=== PATIENT | female | born 2000 | race Two or more races ===

== ENCOUNTER 2024-11-26 20:23 | Inpatient (IN) | payer MEDICAID ==
[~2024-11-26] VITALS: Ht 157.5 cm; Wt 75.1 kg
--- NOTE | 2024-11-26 21:18 | ED.PDOC ---
History of Present Illness HPI Comments 23-year-old female who came to ER due to flu like symptoms. Patient has been having flu like symptoms for the past 5 days, with body malaise, weakness, abdominal pains, lost of appetite, nausea and vomiting. Patient unable to remember her last bowel movement. Denies any possibility of . Denies any history of abdominal surgeries. Chief Complaint: FLU like Time Seen by MD: 21:18 Reviewed Notes: Nurses Notes, Roving Department End Finder Notes Allergies: Coded Allergies: NO KNOWN ALLERGIES (Unverified , 11/26/24) Information Source: Patient Mode of Arrival: EMS Timing: Hours Duration: Intermittent Prehospital treatment: None Past Medical History PAST MEDICAL HISTORY: Denies Surgical History: Denies all surgeries Family History Family History: Reviewed,noncontributory to illness Social History Smoker: Non-Smoker Alcohol: Denies ETOH Use Drugs: Denies Drug Use Lives In: Home Constitutional: reports: fatigue, malaise, weakness; denies: chills, diaphoresis, fever, sweats, others EENTM: denies: blurred vision, double vision, ear bleeding, ear discharge, ear drainage, ear pain, ear ringing, eye pain, eye redness, hearing loss, mouth pain, mouth swelling, nasal discharge, nose bleeding, nose congestion, nose pain, photophobia, tearing, throat pain, throat swelling, voice changes, others Respiratory: denies: cough, hemoptysis, orthopnea, SOB at rest, shortness of breath, SOB with excertion, stridor, wheezing, others Cardiovascular: denies: chest pain, dizzy spells, diaphoresis, Dyspnea on exertion, edema, irregular heart beat, left arm pain, lightheadedness, palpitations, PND, syncope, others Gastrointestinal: reports: abdominal pain, constipated, nausea, poor appetite, vomiting; denies: abdomen distended, blood streaked bowels, diarrhea, dysphagia, difficulty swallowing, hematemesis, melena, poor fluid intake, rectal bleeding, rectal pain, others Genitourinary: denies: abnormal vagina bleeding, burning, dyspareunia, dysuria, flank pain, frequency, hematuria, incontinence, pain, , vagina discharge, urgency, others Neurological: denies: dizziness, fainting, headache, left sided numbness, left sided weakness, numbness, paresthesia, pre-existing deficit, right sided numbness, right sided weakness, seizure, speech problems, tingling, tremors, weakness, others Musculoskeletal: denies: back pain, gout, joint pain, joint swelling, muscle pain, muscle stiffness, neck pain, others Integumetry: denies: bruises, change in color, change in hair/nails, dryness, laceration, lesions, lumps, rash, wounds, others Allergic/Immunocompromised: denies: Difficulty Healing, Frequent Infections, Hives, Itching, others Hematologic/Lymphatic: denies: anemia, blood clots, easy bleeding, easy brui sing, swollen glands, others Endocrine: denies: excessive hunger, excessive sweating, excessive thirst, ex cessive urination, flushing, intolerance to cold, intolerance to heat, unexplained weight gain, unexplained weight loss, others Psychiatric: denies: anxiety, bipolar disorder, depression, hopeless, panic disorder, schizophrenia, sleepless, suicidal, others Physical Exam General Appearance: No Apparent Distress, Normal HEENT: Normal ENT Inspection, Pharynx Normal, TMs Normal Neck: Full Range of Motion, Non-Tender, Normal, Normal Inspection Respiratory: Chest Non-Tender, Lungs Clear, No Accessory Muscle Use, No Res piratory Distress, Normal Breath Sounds Cardiovascular: No Edema, No JVD, No Murmur, No Gallop, Normal Peripheral Pulses, Regular Rate/Rhythm Breast Exam: Deferred Gastrointestinal: Epigastric, No Organomegaly, No Pulsatile Mass, Normal Bowel Sounds, Soft, Tenderness Genitalia: Deferred Pelvic: Deferred Rectal: Deferred Extremities: No calf tenderness, Normal capillary refill, Normal inspection, Normal range of motion, Non-tender, No pedal edema Musculoskeletal : Apperance: Normal Neurologic: Alert, control systems drafting officer II-XII nml as Tested, No Motor Deficits, Normal Affect, Normal Mood, No Sensory Deficits Cerebellar Function: Normal Reflexes: Normal Skin: Dry, Normal Color, Warm Lymphatic: No Adenopathy Was a procedure done? Was a procedure done?: No Differential Dx Considerations may include: Anemia, electrolyte imbalance, influenza, viral syndrome, enteritis X-Ray, Labs, Meds, VS Vital Signs Date Time Temp Pulse Resp B/P (MAP) Pulse Ox O2 Delivery O2 Flow Rate FiO2 11/26/24 23:32 16 98 Room Air* 0 21 11/26/24 21:54 98.5 74 18 135/79 (97) 99 98.5 11/26/24 21:54 74 18 99 Room Air 11/26/24 20:54 98.4 130 28 132/60 (84) 100 Lab Test 11/26/24 22:37 11/26/24 21:38 11/26/24 21:13 11/26/24 20:53 Range/Units Urine Color Yellow Yellow Urine Clarity Turbid H Clear Urine pH 6.0 5.0-9.0 Urine Specific [place] 1.039 H 1.001-1.035 Urine Protein 1+ H Negative Urine Ketones 4+ H Negative Urine Blood 2+ H Negative /uL Urine Nitrite Negative Negative Urine Bilirubin Negative Negative Urine Urobilinogen 3 H Negative mg/dL Urine Leukocyte Esterase 2+ Negative /uL Urine RBC 9 0 - 4 /hpf Urine Microscopic WBC 50 H 0-5 /HPF Urine Squamous Epithelial Cells Mod <5 /hpf Urine Bacteria None seen None Seen /hpf Urine Hyaline Casts Few 0 - 2 /lpf Urine Mucus Few None Seen Urine Glucose Normal Normal mg/dL Urine Test Negative Negative White Blood Count 19.6 H 4.4-10.8 10^3/uL Red Blood Count 5.46 H 4.0-5.20 10^6/uL Hemoglobin 15.8 12.2-16.2 g/dL Hematocrit 45.9 36.0-46.0 % Mean Corpuscular Volume 84.2 80.0-100.0 fL Mean Corpuscular Hemoglobin 29.0 28.0-32.0 pg Mean Corpuscular Hemoglobin Concent 34.5 32.0-36.0 g/dL Red Cell Distribution Width 12.9 11.8-14.3 % Platelet Count 411 140-450 10^3/uL Mean Platelet Volume 8.0 6.9-10.8 fL Neutrophils (%) (Auto) 80.8 H 37.0-80.0 % Lymphocytes (%) (Auto) 12.3 10.0-50.0 % Monocytes (%) (Auto) 6.2 0.0-12.0 % Eosinophils (%) (Auto) 0.4 0.0-7.0 % Basophils (%) (Auto) 0.3 0.0-2.0 % Neutrophils # (Auto) 15.8 H 1.6-8.6 10 ^3/uL Lymphocytes # (Auto) 2.4 0.4-5.4 10 ^3/uL Monocytes # (Auto) 1.2 0-1.3 10 ^3/uL Eosinophils # (Auto) 0.1 0-0.8 10 ^3/uL Basophils # (Auto) 0.1 0-0.2 10 ^3/uL Nucleated Red Blood Cells 0.1 % Sodium Level 131 L 136-145 mmol/L Potassium Level 3.1 L 3.5-5.1 mmol/L Chloride Level 95 L 98-107 mmol/L Carbon Dioxide Level 23 20-31 mmol/L Anion Gap 13 5-15 Blood Urea Nitrogen 12 9-23 mg/dL Creatinine 0.59 0.550-1.02 mg/dL Glomerular Filtration Rate Calc 130 >90 mL/min BUN/Creatinine Ratio 20.3 H 10.0-20.0 Serum Glucose 107 H 74-106 mg/dL Calcium Level 10.2 8.7-10.4 mg/dL Total Bilirubin 0.9 0.2-1.0 mg/dL Aspartate Amino Transferase (AST) 13 13-40 U/L Alanine Aminotransferase (ALT) 20 7-40 U/L Alkaline Phosphatase 70 46-116 U/L Total Protein 8.2 5.7-8.2 g/dL Albumin 5.4 H 3.2-4.8 g/dL Influenza Type A Antigen Negative Negative Influenza Type B Antigen Negative Negative SARS-CoV-2 Antigen (Rapid) Negative NEGATIVE POC Glucose 114 H 70-106 mg/dl Current Medications Medications (Trade) Dose Ordered Sig/Karen Route Start Time Stop Time Status Last Admin Ondansetron HCl (Zofran) 4 mg ONCE ONCE IV 11/26/24 21:30 11/26/24 21:31 DC 11/26/24 21:36 Acetaminophen (Ofirmev) 1,000 mg ONCE ONCE IV 11/26/24 21:30 11/26/24 21:31 DC 11/26/24 21:35 Sodium Chloride 1,000 ml @ 1,000 mls/hr Q1H ONCE IV 11/26/24 21:45 11/26/24 22:44 DC 11/26/24 21:34 Cefepime HCl 50 ml @ 12.5 mls/hr ONCE ONCE IV 11/26/24 23:15 11/27/24 03:14 DC 11/26/24 23:26 Metoclopramide HCl (Reglan Injection) 10 mg ONCE ONCE IV 11/27/24 00:30 11/27/24 00:31 DC 11/27/24 00:25 Potassium Chloride (Klor-Con Tablet) 40 meq ONCE ONCE PO 11/27/24 01:30 11/27/24 01:37 DC 11/27/24 01:47 Sodium Chloride 1,000 ml @ 60 mls/hr [id number] IV 11/27/24 01:30 11/27/24 01:47 Time of 1ST Reevaluation: 21:09 Reevaluation 1ST: Unchanged Patient Education/Counseling: Diagnosis, Treatment Family Education/Counseling: No Family Present Departure 1 Departure Time of Disposition: 05:29 (Patient presented with abdominal pain that was concerning for possible appendicits, gastritis, cholecystitis, colitis, gastroenteritis, sbo, or orther possible surgical emergency. Data: 1. I ordered and reviewed the result of at least 3 labs including a CBC, BMP, and Urinalysis. 2. I independently interpreted the following tests: CT Abdoment and Pelvis is concerning for renal cyst .Risk:This patient has a high risk of morbidity due to further diagnostic testing or treatment and may suffer from an acute abdominal process disorder. Workup reveals acute cystitis and right renal cyst and patient should be admitted for further workup. and possible expert consultation. ) Impression: Primary Impression: Acute cystitis Qualified Codes: N30.01 - Acute cystitis with hematuria Additional Impressions: Adnexal cyst Intractable abdominal pain Disposition: ADMITTED INPATIENT Admit to: Med Surg Condition: Serious Critical Care Note Critical Care Time?: No Stability Stability form required: No Heart Score Heart Score: Heart Score Response (Comments) Value History N/A 0 EKG N/A 0 Age N/A 0 Risk Factors N/A 0 Troponin N/A 0 Total 0 I personally scribed for YESENIA SMITH MD ([email or web address]) on 11/26/24 at 21:18. Electronically submitted by Billy Dye ([email or web address]). YESENIA SMITH MD Nov 26, 2024 21:18
[2024-11-26] MEDS: SODIUM CHLORIDE 0.9% 1,000 ML IV ONE (21:34)
[2024-11-26] MEDS: ACETAMINOPHEN IV 1000 MG/100ML (10MG/ML) IV ONE (21:35)
[2024-11-26] MEDS: ONDANSETRON HCL 4 MG/2 ML VIAL IV ONE (21:36)
[2024-11-26 21:54] LABS: COVID19 ANTIGEN SOFIA FIA NEGATIVE (NEGATIVE); Rapid Influenza A Negative (Negative); Rapid Influenza B Negative (Negative)
[2024-11-26 21:55] LABS: Basophils # (auto) 0.1 10 ^3/uL (0-0.2); Basophils % (auto) 0.3 % (0.0-2.0); Eosinophils # (auto) 0.1 10 ^3/uL (0-0.8); Eosinophils % (auto) 0.4 % (0.0-7.0); Hematocrit 45.9 % (36.0-46.0); Hemoglobin 15.8 g/dL (12.2-16.2); Lymphocytes # (auto) 2.4 10 ^3/uL (0.4-5.4); Lymphocytes % (auto) 12.3 % (10.0-50.0); Mean Corpuscular Hgb Conc. 34.5 g/dL (32.0-36.0); Mean Corpuscular Volume 84.2 fL (80.0-100.0); Monocytes # (auto) 1.2 10 ^3/uL (0-1.3); Monocytes % (auto) 6.2 % (0.0-12.0); Neutrophils # (auto) 15.8 10 ^3/uL (1.6-8.6); Neutrophils % (auto) 80.8 % (37.0-80.0); Nucleated Red Blood Cells % 0.1 %; Platelet Count (auto) 411 10^3/uL (140-450); Red Blood Cells 5.46 10^6/uL (4.0-5.20); Red Cell Distribution Width 12.9 % (11.8-14.3); White Blood Cell 19.6 10^3/uL (4.4-10.8)
[2024-11-26 22:04] LABS: Alanine Aminotransferase 20 U/L (7-40); Alkaline Phosphatase 70 U/L (46-116); Anion Gap 13 (5-15); Aspartate Aminotransferase 13 U/L (13-40); BUN/Creatinine Ratio 20.3 (10.0-20.0); Bilirubin, Total 0.9 mg/dL (0.2-1.0); Blood Urea Nitrogen 12 mg/dL (9-23); Calcium 10.2 mg/dL (8.7-10.4); Carbon Dioxide 23 mmol/L (20-31)
[2024-11-26 22:08] LABS: Albumin 5.4 g/dL (3.2-4.8); Chloride 95 mmol/L (98-107); Glucose 107 mg/dL (74-106); Potassium 3.1 mmol/L (3.5-5.1); Sodium 131 mmol/L (136-145); Total Protein 8.2 g/dL (5.7-8.2)
[2024-11-26 22:37] LABS: Urine Bacteria None Seen /hpf (None Seen)
[2024-11-26 22:46] LABS: Urine Blood 2+ /uL (Negative); Urine Clarity Turbid (Clear); Urine Color Yellow (Yellow); Urine Hyaline Cast FEW /lpf (0 - 2); Urine Mucus FEW (None Seen); Urine Protein, UAD 1+ (Negative); Urine Specific Gravity 1.039 (1.001-1.035); Urine Squamous Epithelial Cell MOD /hpf (<5); Urine Urobilinogen 3 mg/dL (Negative); Urine WBC 50 /HPF (0-5)
[2024-11-26] MEDS: CEFEPIME 2GM/50ML NS 50 ML IV ONE (23:26)
[2024-11-26 23:32] VITALS: RESP 16; O2SAT 98
[2024-11-27] VITALS (7 sets, daily range): BP systolic 124–129; BP diastolic 71–84; PULSE 89–112; RESP 16–19; TEMP 97.4–98.3; O2SAT 96–98
[2024-11-27] MEDS: METOCLOPRAMIDE HCL 5MG/ml INJ 2ml VIAL IV ONE (00:25)
[2024-11-27] MEDS: IOHEXOL 300 MG/ML 100ML BOTTLE IJ ONE (01:20)
[2024-11-27] MEDS ORDERED: ACETAMINOPHEN 325 MG TAB PO PRN (01:30)
[2024-11-27] MEDS ORDERED: DOCUSATE SOD 100 MG CAP PO PRN (01:30)
[2024-11-27] MEDS ORDERED: HYDROcodone-ACET 5/325MG TAB PO PRN (01:30)
--- NOTE | 2024-11-27 01:41 | DVH ---
Exam: CT CT AB PEL WITH IV CON ONLY History: abdominal pain COMPARISON: None Technique: Multidetector spiral CT of the abdomen and pelvis was performed from lung bases to pubic s ymphysis. Intravenous contrast was administered during this examination. Portal venous imaging was obtained. Axial, coronal and sagittal multiplanar reformats were performed by the technologist on a separate workstation. Radiation Dose : 1. Abdomen/Pelvis: CTDIvol mGy, DLP mGy*cm. CONTRAST: Type of contrast: Contrast injected: ml Contrast ingested: ml Findings: Lung Bases: No abnormality demonstrated. Liver: Liver is normal in size. No focal lesions. Normal hepatic vascular enhancement. Gallbladder and Biliary Tree: No abnormality demonstrated. Spleen: No abnormality demonstrated. Pancreas: No abnormality demonstrated. Adrenal Glands: No abnormality demonstrated. Kidneys: No abnormality demonstrated with no evidence of renal calculus or hydroureteronephrosis. Bladder: Unremarkable Bowel: Stomach appears grossly unremarkable. No dilated or thick-walled loops of large or small bowel noted. Appendix appears unremarkable. Ascites: Absent Lymphadenopathy: No evidence of lymphadenopathy. Abdominal Wall and Mesentery: Unremarkable. Vasculature: Unremarkable. Pelvic Organs: Evidence of right adnexal cyst measuring up to 3.7 cm. IUD noted in the uterus. No isabel dence of pelvic mass or free fluid. Musculoskeletal: No bony lesions or fracture. IMPRESSION: No acute abdominal finding. Right adnexal cyst measuring up to 3.7 cm Radiation optimization: All CT scans at this facility use at least one of these dose optimization janis hniques: automated exposure control mA and/or kV adjustment per patient size (includes targeted exam s where dose is matched to clinical indication) or iterative reconstruction.
[2024-11-27] MEDS: SODIUM CHLORIDE 0.9% 1,000 ML IV SCH (01:47)
[2024-11-27] MEDS: POTASSIUM CHL 20 Meq TABLET PO ONE (01:47)
--- NOTE | 2024-11-27 04:25 | DVHHP2 ---
History of Present Illness Reason for Visit: Intractable nausea and vomiting History of Present Illness Patient is a 23-year-old female who denies past medical history presented to [facility] [place] ED with complaint of intractable nausea and vomiting. Patient reports symptoms progressively get worse with abdominal pain, loss of appetite, getting worse that prompted this visit. Patient was seen and evaluated in the ED, laboratory data shows elevated WBC 19.6, platelets 411, sodium 131, potassium 3.1, BUN 12, creatinine 0.59, GFR 130, glucose 107, albumin 5.4, urinalysis positive for urinary tract infection, blood pressure 135/79, heart rate 74, temperature 98.5 F, O2 saturation 98% room air. Abdomen/pelvis CT showed no acute abdominal finding, noted right adnexal cyst measuring up to 3.7 cm. Patient was started on IV antibiotic regimen cefepime, please see medication orders section in the computer. On my assessment, patient denied chest pain, no headache, no dizziness, no abdominal pain, no nausea or vomiting at this moment, no fever, no chills. Patient was admitted for further evaluation and medical management. Past Medical History Denies past medical history Past Surgical History Denies all surgeries Family History Reviewed, noncontributory to the management of this case. Past Social History The patient lives at home, denies smoking, alcohol or illicit drugs abuse. Review of Systems Constitutional: No: Fever, Chills, Sweats, Weakness, Malaise, Other Eyes: No: Pain, Vision change, Conjunctivae inflammation, Eyelid inflammation, Other, Redness ENT: No: Ear pain, Ear discharge, Nose pain, Nose discharge, Nose congestion, Mouth pain, Mouth swelling, Throat pain, Throat swelling, Other Respiratory: No: Cough, Dry, Shortness of breath, SOB with excertion, Wheezing, Hemoptysis, Pleuritic Pain, Sputum, Wheezing, Other Cardiovascular: No: Chest Pain, Palpitations, Orthopnea, Paroxysmal Noc. Dyspnea, Edema, Lt Headedness, Other Gastrointestinal: Nausea, Vomiting, Abdominal Pain, Constipation, Other (Poor appetite); No: Diarrhea, Melena, Hematochezia Genitourinary: No Dysuria, No Frequency, No Incontinence, No Hematuria, No Retention, No Other Musculoskeletal: No: other, neck pain, shoulder pain, arm pain, back pain, hand pain, leg pain, foot pain Skin: No: Rash, Lesions, Jaundice, Bruising, Other Neurological: No: Weakness, Numbness, Incoordination, Change in speech, Confusion, Seizures, Other Allergies: Coded Allergies: NO KNOWN ALLERGIES (Unverified , 11/26/24) Medications Current Medications Medications Dose Ordered Sig/Karen Route Start Time Stop Time Status Last Admin Dose Admin Cefepime HCl 50 ml @ 12.5 mls/hr Q12HR IV 11/27/24 10:00 Sodium Chloride 1,000 ml @ 60 mls/hr [id number] IV 11/27/24 01:30 11/27/24 01:47 60 MLS/HR Acetaminophen/ Hydrocodone Bitart 1 tab Q4HP PRN PO 11/27/24 01:30 Ondansetron HCl 4 mg Q4HP PRN IV 11/27/24 01:30 Docusate Sodium 100 mg BIDPRN PRN PO 11/27/24 01:30 Acetaminophen 650 mg Q6HP PRN PO 11/27/24 01:30 Pantoprazole Sodium 40 mg DAILY IV 11/27/24 10:00 Exam Vital Signs Vital Signs Date Time Temp Pulse Resp B/P (MAP) Pulse Ox O2 Delivery O2 Flow Rate FiO2 11/26/24 23:32 16 98 Room Air* 0 21 11/26/24 21:54 98.5 74 135/79 (97) 98.5 General Appearance: Alert, Oriented X3, Cooperative, No acute distress HEENT: Atraumatic, PERRLA, EOMI, Mucous membr. moist/pink Respiratory: Clear to auscultation, Normal air movement Cardiovascular: Regular rate, Normal S1, Normal S2, No murmurs Abdominal: Normal bowel sounds, Soft, No tenderness, No hepatospenomegaly, No masses Extremities: No clubbing, No cyanosis, No edema, Normal pulses, No tenderness/ swelling Skin: No rashes, No breakdown, No significant lesion Neuro: Normal gait, Normal speech, Strength at 5/5 X4 ext, Normal tone, Sensation intact, Cranial nerves 3-12 NL, Reflexes 2+ Psych/Mental Status: Mental status NL, Mood NL Labs/Xrays Labs Test 11/26/24 22:37 11/26/24 21:38 11/26/24 21:13 11/26/24 20:53 Range/Units Urine Color Yellow Yellow Urine Clarity Turbid H Clear Urine pH 6.0 5.0-9.0 Urine Specific [place] 1.039 H 1.001-1.035 Urine Protein 1+ H Negative Urine Ketones 4+ H Negative Urine Blood 2+ H Negative /uL Urine Nitrite Negative Negative Urine Bilirubin Negative Negative Urine Urobilinogen 3 H Negative mg/dL Urine Leukocyte Esterase 2+ Negative /uL Urine RBC 9 0 - 4 /hpf Urine Microscopic WBC 50 H 0-5 /HPF Urine Squamous Epithelial Cells Mod <5 /hpf Urine Bacteria None seen None Seen /hpf Urine Hyaline Casts Few 0 - 2 /lpf Urine Mucus Few None Seen Urine Glucose Normal Normal mg/dL Urine Test Negative Negative White Blood Count 19.6 H 4.4-10.8 10^3/uL Red Blood Count 5.46 H 4.0-5.20 10^6/uL Hemoglobin 15.8 12.2-16.2 g/dL Hematocrit 45.9 36.0-46.0 % Mean Corpuscular Volume 84.2 80.0-100.0 fL Mean Corpuscular Hemoglobin 29.0 28.0-32.0 pg Mean Corpuscular Hemoglobin Concent 34.5 32.0-36.0 g/dL Red Cell Distribution Width 12.9 11.8-14.3 % Platelet Count 411 140-450 10^3/uL Mean Platelet Volume 8.0 6.9-10.8 fL Neutrophils (%) (Auto) 80.8 H 37.0-80.0 % Lymphocytes (%) (Auto) 12.3 10.0-50.0 % Monocytes (%) (Auto) 6.2 0.0-12.0 % Eosinophils (%) (Auto) 0.4 0.0-7.0 % Basophils (%) (Auto) 0.3 0.0-2.0 % Neutrophils # (Auto) 15.8 H 1.6-8.6 10 ^3/uL Lymphocytes # (Auto) 2.4 0.4-5.4 10 ^3/uL Monocytes # (Auto) 1.2 0-1.3 10 ^3/uL Eosinophils # (Auto) 0.1 0-0.8 10 ^3/uL Basophils # (Auto) 0.1 0-0.2 10 ^3/uL Nucleated Red Blood Cells 0.1 % Sodium Level 131 L 136-145 mmol/L Potassium Level 3.1 L 3.5-5.1 mmol/L Chloride Level 95 L 98-107 mmol/L Carbon Dioxide Level 23 20-31 mmol/L Anion Gap 13 5-15 Blood Urea Nitrogen 12 9-23 mg/dL Creatinine 0.59 0.550-1.02 mg/dL Glomerular Filtration Rate Calc 130 >90 mL/min BUN/Creatinine Ratio 20.3 H 10.0-20.0 Serum Glucose 107 H 74-106 mg/dL Calcium Level 10.2 8.7-10.4 mg/dL Total Bilirubin 0.9 0.2-1.0 mg/dL Aspartate Amino Transferase (AST) 13 13-40 U/L Alanine Aminotransferase (ALT) 20 7-40 U/L Alkaline Phosphatase 70 46-116 U/L Total Protein 8.2 5.7-8.2 g/dL Albumin 5.4 H 3.2-4.8 g/dL Influenza Type A Antigen Negative Negative Influenza Type B Antigen Negative Negative SARS-CoV-2 Antigen (Rapid) Negative NEGATIVE POC Glucose 114 H 70-106 mg/dl PATIENT: ALEX MEREDITH ACCT: [id number] UNIT: [id number] : 2000 LOC: ER ROOM / BED: / AGE / SEX: 24 / F ADM STATUS: REG ER SERVICE 010 ORDERING PHYSICIAN: YESENIA SMITH MD PROCEDURE(s): ABPLIV - CT AB PEL WITH IV CON ONLY REASON: abdominal pain ORDER NUMBER(s): [id number], ACCESSION NUMBER(s): [id number] Exam: CT CT AB PEL WITH IV CON ONLY History: abdominal pain COMPARISON: None Technique: Multidetector spiral CT of the abdomen and pelvis was performed from lung bases to pubic symphysis. Intravenous contrast was administered during this examination. Portal venous imaging was obtained. Axial, coronal and sagittal multiplanar reformats were performed by the technologist on a separate workstation. Radiation Dose: 1. Abdomen/Pelvis: CTDIvol mGy, DLP mGy*cm. CONTRAST: Type of contrast: Contrast injected: ml Contrast ingested: ml Findings: Lung Bases: No abnormality demonstrated. Liver: Liver is normal in size. No focal lesions. Normal hepatic vascular enhancement. Gallbladder and Biliary Tree: No abnormality demonstrated. Spleen: No abnormality demonstrated. Pancreas: No abnormality demonstrated. Adrenal Glands: No abnormality demonstrated. Kidneys: No abnormality demonstrated with no evidence of renal calculus or hydroureteronephrosis. Bladder: Unremarkable Bowel: Stomach appears grossly unremarkable. No dilated or thick-walled loops of large or small bowel noted. Appendix appears unremarkable. Ascites: Absent Lymphadenopathy: No evidence of lymphadenopathy. Abdominal Wall and Mesentery: Unremarkable. Vasculature: Unremarkable. Pelvic Organs: Evidence of right adnexal cyst measuring up to 3.7 cm. IUD noted in the uterus. No evidence of pelvic mass or free fluid. Musculoskeletal: No bony lesions or fracture. IMPRESSION: No acute abdominal finding. Right adnexal cyst measuring up to 3.7 cm Assessment/Plan Assessment/Plan Abdominal pain Intractable nausea and vomiting Electrolyte imbalance Urinary tract infection Leukocytosis, unspecified Plan 1. Admit to med surge unit 2. Breathing treatment 3. Pain control management 4. IV antibiotic management 5. Management of fluids and electrolytes 6. Consultation for hospitalist 7. Diagnostic test abdomen/pelvis CT 8. DVT prophylaxis-on SCDs 9. Repeat labs CBC, CMP in a.m. 10. Continue with current medical management 11. Treatment plan discussed with patient and RN. Patient verbalized understanding. Plan discussed with: Patient, Other (RN) My Orders Orders - ATLAGRACIA JOHNSON DNP Procedure Category Date Status Time Complete Blood Count LAB 11/27/24 Logged 04:00 Comprehensive LAB 11/27/24 Logged Metabolic Panel 04:00 Cefepime 1gm/ 50ml PHA 11/27/24 In Process (Maxipime 1gm/50ml) 10:00 Urine Bacterial ADAL 11/27/24 In Process Culture 01:25 Blood Culture ADAL 11/27/24 In Process 01:25 Allergies NIC 11/27/24 In Process 01:25 Code Status CODE 11/27/24 Transmitted 01:25 Sodium Chloride 0.9% PHA 11/27/24 In Process 01:30 Oxygen Per Hour RT 11/27/24 Transmitted 01:25 Hydrocodone-Acet PHA 11/27/24 In Process 5/325mg Tab ([place] 01:30 Ondansetron Hcl PHA 11/27/24 In Process (Zofran) 01:30 Docusate Sodium PHA 11/27/24 In Process Capsule (Colace 01:30 Complete Blood Count LAB 11/28/24 Verified 04:00 Comprehensive LAB 11/28/24 Verified Metabolic Panel 04:00 Condition: Serious NIC 11/27/24 In Process 01:25 Acetaminophen Tablet PHA 11/27/24 In Process (Tylenol Tablet) 01:30 Clear Liq Diet DIET 11/27/24 Transmitted Breakfast Bedrest With Bathroom NIC 11/27/24 In Process Privileg 01:25 Sequential NIC 11/27/24 In Process Compression Device Pantoprazole PHA 11/27/24 In Process (Protonix) 10:00 Admit ADMIT 11/27/24 Verified 04:23 Nitroglycerin [facility] 11/27/24 Verified Sublingual (Ntrostat 04:30 Morphine Sulfate [facility] 11/27/24 Verified Injection 04:30 Notify Md Of Changes [facility] 11/27/24 Verified From Base 04:23 Emergency Dysrhythmia [facility] 11/27/24 Verified Protocol 04:23 Oxygen By Nasal RT 11/27/24 Verified Cannula 04:23 Problem List: (1) Abdominal pain (2) Intractable nausea and vomiting (3) Electrolyte imbalance (4) Urinary tract infection (5) Leukocytosis, unspecified Date of Service: Nov 27, 2024 Billing Provider: ALTAGRACIA JOHNSON DNP Common Visit Codes: [id number] INP/OBS CARE (HIGH) ALTAGRACIA JOHNSON DNP Nov 27, 2024 04:25
[2024-11-27] MEDS ORDERED: MORPHINE SULFATE INJ 2 MG/ml SYRG IV PRN (04:30)
[2024-11-27] MEDS ORDERED: NITROGLYCERIN 0.4 MG SL TAB SL PRN (04:30)
[2024-11-27] MEDS: ONDANSETRON HCL 4 MG/2 ML VIAL IV PRN (05:49)
[2024-11-27 09:39] LABS: Basophils # (auto) 0 10 ^3/uL (0-0.2); Basophils % (auto) 0.3 % (0.0-2.0); Eosinophils # (auto) 0 10 ^3/uL (0-0.8); Eosinophils % (auto) 0.3 % (0.0-7.0); Hematocrit 40.8 % (36.0-46.0); Hemoglobin 13.9 g/dL (12.2-16.2); Lymphocytes # (auto) 2.8 10 ^3/uL (0.4-5.4); Lymphocytes % (auto) 19.6 % (10.0-50.0); Mean Corpuscular Hemoglobin 28.9 pg (28.0-32.0); Monocytes # (auto) 1.2 10 ^3/uL (0-1.3); Monocytes % (auto) 8.5 % (0.0-12.0); Neutrophils % (auto) 71.3 % (37.0-80.0); Nucleated Red Blood Cells % 0.1 %; Platelet Count (auto) 362 10^3/uL (140-450); Red Blood Cells 4.79 10^6/uL (4.0-5.20); Red Cell Distribution Width 12.8 % (11.8-14.3); White Blood Cell 14.1 10^3/uL (4.4-10.8)
[2024-11-27 09:55] LABS: Alanine Aminotransferase 17 U/L (7-40); Alkaline Phosphatase 60 U/L (46-116)
[2024-11-27 09:56] LABS: Albumin 4.6 g/dL (3.2-4.8); Anion Gap 10 (5-15); BUN/Creatinine Ratio 11.3 (10.0-20.0); Bilirubin, Total 0.8 mg/dL (0.2-1.0); Calcium 9.4 mg/dL (8.7-10.4); Carbon Dioxide 23 mmol/L (20-31); Chloride 100 mmol/L (98-107); Glucose 98 mg/dL (74-106); Potassium 3.6 mmol/L (3.5-5.1)
[2024-11-27 09:59] LABS: Aspartate Aminotransferase 10 U/L (13-40); Blood Urea Nitrogen 7 mg/dL (9-23); Sodium 133 mmol/L (136-145)
[2024-11-27] MEDS: CEFEPIME 1GM/ 50ML 50 ML IV SCH (10:18)
[2024-11-27] MEDS: PANTOPRAZOLE 40 MG/10 ML VIAL INJ IV SCH (10:18)
--- NOTE | 2024-11-27 13:38 | DVHPN2 ---
Reviewed: Care Plan, H&P, Labs, Medications, Previous Orders, Radiology Changes from previous H/P or p: No Changes Eyes: No Pain, No Vision change, No Conjunctivae inflammation, No Eyelid inflammation, No Other, No Redness ENT: No Ear pain, No Ear discharge, No Nose pain, No Nose discharge, No Nose congestion, No Mouth pain, No Mouth swelling, No Throat pain, No Throat swelling, No Other Cardiovascular: No Chest Pain, No Palpitations, No Orthopnea, No Paroxysmal Noc. Dyspnea, No Edema, No Lt Headedness, No Other Respiratory: No Cough, No Dry, No Shortness of breath, No SOB with excertion, No Wheezing, No Hemoptysis, No Pleuritic Pain, No Sputum, No Other Gastrointestinal: Nausea, Vomiting, Abdominal Pain; No Diarrhea; Constipation; No Melena, No Hematochezia; Other (Poor appetite) Genitourinary: No Dysuria, No Frequency, No Incontinence, No Hematuria, No Retention, No Other Musculoskeletal: No other, No neck pain, No shoulder pain, No arm pain, No back pain, No hand pain, No leg pain, No foot pain Skin: No Rash, No Lesions, No Jaundice, No Bruising, No Other Objective Vitals Vital Signs Date Time Temp Pulse Resp B/P (MAP) Pulse Ox O2 Delivery O2 Flow Rate FiO2 11/27/24 09:00 97.4 112 19 129/83 (98) 96 97.4 11/27/24 08:00 Room Air* 0 21 Intake/Output Intake and Output 11/27/24 07:00 Intake Total 1243 ml Balance 1243 ml Intake IV Total 1243 ml Medications Current Medications Medications Dose Ordered Sig/Karen Route Start Time Stop Time Status Last Admin Dose Admin Cefepime HCl 50 ml @ 12.5 mls/hr Q12HR IV 11/27/24 10:00 11/27/24 10:18 12.5 MLS/HR Sodium Chloride 1,000 ml @ 60 mls/hr [id number] IV 11/27/24 01:30 11/27/24 01:47 60 MLS/HR Acetaminophen/ Hydrocodone Bitart 1 tab Q4HP PRN PO 11/27/24 01:30 Ondansetron HCl 4 mg Q4HP PRN IV 11/27/24 01:30 11/27/24 10:18 4 MG Docusate Sodium 100 mg BIDPRN PRN PO 11/27/24 01:30 Acetaminophen 650 mg Q6HP PRN PO 11/27/24 01:30 Pantoprazole Sodium 40 mg DAILY IV 11/27/24 10:00 11/27/24 10:18 40 MG Nitroglycerin 0.4 mg Q5MINP PRN SL 11/27/24 04:30 Morphine Sulfate 2 mg Q30M PRN IV 11/27/24 04:30 Laboratory Results Laboratory Tests 11/27/24 09:18 Chemistry Test 11/26/24 21:38 11/27/24 09:18 Albumin 5.4 g/dL (3.2-4.8) H 4.6 g/dL (3.2-4.8) Calcium Level 10.2 mg/dL (8.7-10.4) 9.4 mg/dL (8.7-10.4) Total Protein 8.2 g/dL (5.7-8.2) 7.0 g/dL (5.7-8.2) LFT Test 11/26/24 21:38 11/27/24 09:18 Alanine Aminotransferase (ALT) 20 U/L (7-40) 17 U/L (7-40) Alkaline Phosphatase 70 U/L (46-116) 60 U/L (46-116) Aspartate Amino Transferase (AST) 13 U/L (13-40) 10 U/L (13-40) L Total Bilirubin 0.9 mg/dL (0.2-1.0) 0.8 mg/dL (0.2-1.0) Urinalysis Test 11/26/24 22:37 Urine Color Yellow (Yellow) Urine Clarity Turbid (Clear) H Urine pH 6.0 (5.0-9.0) Urine Specific [place] 1.039 (1.001-1.035) Urine Protein 1+ (Negative) H Urine Ketones 4+ (Negative) H Urine Blood 2+ /uL (Negative) H Urine Nitrite Negative (Negative) Urine Bilirubin Negative (Negative) Urine Urobilinogen 3 mg/dL (Negative) H Urine Leukocyte Esterase 2+ /uL (Negative) Urine RBC 9 /hpf (0 - 4) Urine Microscopic WBC 50 /HPF (0-5) H Urine Squamous Epithelial Cells Mod /hpf (<5) Urine Bacteria None seen /hpf (None Seen) Urine Hyaline Casts Few /lpf (0 - 2) Urine Mucus Few (None Seen) Urine Glucose Normal mg/dL (Normal) Urine Test Negative (Negative) Labs and/or images reviewed: Labs reviewed by me, Image(s) reviewed by me Assessment/Plan Assessment/Plan Sepsis secondary to urinary tract infection Acute urinary tract infection: Blood cultures urine cultures Rocephin, DC cefepime Intractable nausea and vomiting secondary to sepsis, we will check urine drug screen, pantoprazole Acute dehydration: IV fluids ruled out 3.7 cm right ovarian cyst: Consult for CT abdomen pelvis without contrast negative for any acute pathology Plan discussed with: Patient My Orders Orders - NASIMA HAYNES MD Procedure Category Date Status Time Drug Screen LAB 11/27/24 Verified 13:35 Date of Service: Nov 27, 2024 Billing Provider: NASIMA HAYNES MD Common Visit Codes: [id number] INP/OBS CARE(HIGH) NASIMA HAYNES MD Nov 27, 2024 13:38
[2024-11-27] MEDS: cefTRIAXone 1GM/50ML D5W 50 ML IV ONE (14:11)
[2024-11-27] MEDS: LACTATED RINGER'S 1,000 ML IV SCH (14:13)
[2024-11-27 17:09] LABS: Amphetamine Screen, Urine Neg (NEGATIVE); Barbiturate Scree,Urine Neg (NEGATIVE); Benzodiazephine Screen, Urine Neg (NEGATIVE); Cannabinoid Screen, Urine Pos (NEGATIVE); Cocaine Screen, Urine Neg (NEGATIVE); Opiate Scree,Urine Neg (NEGATIVE); Phencyclidine Screen, Urine Neg (NEGATIVE)
[2024-11-28] VITALS (8 sets, daily range): BP systolic 105–122; BP diastolic 60–77; PULSE 70–98; RESP 16–17; TEMP 97.5–98.3; O2SAT 92–99
[2024-11-28 06:26] LABS: Basophils # (auto) 0 10 ^3/uL (0-0.2); Basophils % (auto) 0.3 % (0.0-2.0); Eosinophils # (auto) 0 10 ^3/uL (0-0.8); Eosinophils % (auto) 0.4 % (0.0-7.0); Hematocrit 39.7 % (36.0-46.0); Hemoglobin 13.7 g/dL (12.2-16.2); Lymphocytes # (auto) 3.5 10 ^3/uL (0.4-5.4); Lymphocytes % (auto) 36.4 % (10.0-50.0); Mean Corpuscular Hemoglobin 29.5 pg (28.0-32.0); Mean Corpuscular Hgb Conc. 34.5 g/dL (32.0-36.0); Mean Corpuscular Volume 85.6 fL (80.0-100.0); Monocytes # (auto) 0.9 10 ^3/uL (0-1.3); Monocytes % (auto) 9.5 % (0.0-12.0); Neutrophils # (auto) 5.1 10 ^3/uL (1.6-8.6); Neutrophils % (auto) 53.4 % (37.0-80.0); Platelet Count (auto) 321 10^3/uL (140-450); Red Blood Cells 4.64 10^6/uL (4.0-5.20); White Blood Cell 9.5 10^3/uL (4.4-10.8)
[2024-11-28 06:43] LABS: Alanine Aminotransferase 13 U/L (7-40); Alkaline Phosphatase 56 U/L (46-116); Anion Gap 10 (5-15); BUN/Creatinine Ratio 12.5 (10.0-20.0); Calcium 9.4 mg/dL (8.7-10.4); Carbon Dioxide 26 mmol/L (20-31); Chloride 101 mmol/L (98-107); Glucose 87 mg/dL (74-106); Sodium 137 mmol/L (136-145)
[2024-11-28 06:44] LABS: Albumin 4.3 g/dL (3.2-4.8); Total Protein 6.5 g/dL (5.7-8.2)
[2024-11-28 06:51] LABS: Aspartate Aminotransferase < 8 U/L (13-40); Bilirubin, Total 0.8 mg/dL (0.2-1.0); Blood Urea Nitrogen 7 mg/dL (9-23); Potassium 3.3 mmol/L (3.5-5.1)
[2024-11-28] MEDS: cefTRIAXone 1GM/50ML D5W 50 ML IV SCH (09:38)
--- NOTE | 2024-11-28 11:43 | DVHPN2 ---
Reviewed: Care Plan, H&P, Labs, Medications, Previous Orders, Radiology Changes from previous H/P or p: No Changes Eyes: No Pain, No Vision change, No Conjunctivae inflammation, No Eyelid inflammation, No Other, No Redness ENT: No Ear pain, No Ear discharge, No Nose pain, No Nose discharge, No Nose congestion, No Mouth pain, No Mouth swelling, No Throat pain, No Throat swelling, No Other Cardiovascular: No Chest Pain, No Palpitations, No Orthopnea, No Paroxysmal Noc. Dyspnea, No Edema, No Lt Headedness, No Other Respiratory: No Cough, No Dry, No Shortness of breath, No SOB with excertion, No Wheezing, No Hemoptysis, No Pleuritic Pain, No Sputum, No Other Gastrointestinal: Nausea, Vomiting, Abdominal Pain; No Diarrhea; Constipation; No Melena, No Hematochezia; Other (Poor appetite) Genitourinary: No Dysuria, No Frequency, No Incontinence, No Hematuria, No Retention, No Other Musculoskeletal: No other, No neck pain, No shoulder pain, No arm pain, No back pain, No hand pain, No leg pain, No foot pain Skin: No Rash, No Lesions, No Jaundice, No Bruising, No Other Objective Vitals Vital Signs Date Time Temp Pulse Resp B/P (MAP) Pulse Ox O2 Delivery O2 Flow Rate FiO2 11/28/24 09:00 97.9 76 16 119/70 (86) 96 97.9 11/27/24 20:00 Room Air* 0 21 Intake/Output Intake and Output 11/28/24 07:00 Intake Total 3807 ml Balance 3807 ml Intake Oral 810 ml IV Total 2997 ml # Voids 3 # Bowel Movements 1 Medications Current Medications Medications Dose Ordered Sig/Karen Route Start Time Stop Time Status Last Admin Dose Admin Acetaminophen/ Hydrocodone Bitart 1 tab Q4HP PRN PO 11/27/24 01:30 Ondansetron HCl 4 mg Q4HP PRN IV 11/27/24 01:30 11/27/24 16:12 4 MG Docusate Sodium 100 mg BIDPRN PRN PO 11/27/24 01:30 Acetaminophen 650 mg Q6HP PRN PO 11/27/24 01:30 Pantoprazole Sodium 40 mg DAILY IV 11/27/24 10:00 11/28/24 09:38 40 MG Nitroglycerin 0.4 mg Q5MINP PRN SL 11/27/24 04:30 Morphine Sulfate 2 mg Q30M PRN IV 11/27/24 04:30 Ceftriaxone Sodium 50 ml @ 100 mls/hr DAILY@09 IV 11/28/24 09:00 11/28/24 09:38 100 MLS/HR Lactated Ringer's 1,000 ml @ 150 mls/hr Q6H40M IV 11/27/24 14:00 11/28/24 05:26 150 MLS/HR Laboratory Results Laboratory Tests 11/28/24 05:00 Chemistry Test 11/28/24 05:00 Albumin 4.3 g/dL (3.2-4.8) Calcium Level 9.4 mg/dL (8.7-10.4) Total Protein 6.5 g/dL (5.7-8.2) LFT Test 11/28/24 05:00 Alanine Aminotransferase (ALT) 13 U/L (7-40) Alkaline Phosphatase 56 U/L (46-116) Aspartate Amino Transferase (AST) < 8 U/L (13-40) L Total Bilirubin 0.8 mg/dL (0.2-1.0) Urinalysis Test 11/26/24 22:37 Urine Color Yellow (Yellow) Urine Clarity Turbid (Clear) H Urine pH 6.0 (5.0-9.0) Urine Specific [place] 1.039 (1.001-1.035) Urine Protein 1+ (Negative) H Urine Ketones 4+ (Negative) H Urine Blood 2+ /uL (Negative) H Urine Nitrite Negative (Negative) Urine Bilirubin Negative (Negative) Urine Urobilinogen 3 mg/dL (Negative) H Urine Leukocyte Esterase 2+ /uL (Negative) Urine RBC 9 /hpf (0 - 4) Urine Microscopic WBC 50 /HPF (0-5) H Urine Squamous Epithelial Cells Mod /hpf (<5) Urine Bacteria None seen /hpf (None Seen) Urine Hyaline Casts Few /lpf (0 - 2) Urine Mucus Few (None Seen) Urine Glucose Normal mg/dL (Normal) Urine Test Negative (Negative) Microbiology Microbiology Date/Time Source Procedure Growth Status 11/27/24 02:30 Blood Blood Culture - Preliminary NO GROWTH AFTER 24 HOURS OF INCUBATION. Resulted 11/26/24 22:37 Voided Urine Urine Culture - Preliminary Resulted Labs and/or images reviewed: Labs reviewed by me, Image(s) reviewed by me Assessment/Plan Assessment/Plan Sepsis secondary to urinary tract infection Acute urinary tract infection: Blood cultures negative, urine cultures negative, continue Rocephin, Intractable nausea and vomiting secondary to sepsis, we will check urine drug screen, pantoprazole Acute dehydration: IV fluids ruled out 3.7 cm right ovarian cyst: Consult for CT abdomen pelvis without contrast negative for any acute pathology Plan discussed with: Patient My Orders Orders - NASIMA HAYNES MD Procedure Category Date Status Time Ceftriaxone 1gm/50ml PHA 11/28/24 In Process D5w (Rocephin) 09:00 Lactated Ringer's PHA 11/27/24 In Process 14:00 Date of Service: Nov 28, 2024 Billing Provider: NASIMA HAYNES MD Common Visit Codes: [id number] INP/OBS CARE(HIGH) NASIMA HAYNES MD Nov 28, 2024 11:43
[2024-11-29 01:00] VITALS: BP 98/56; PULSE 78; RESP 17; TEMP 98.1; O2SAT 98
[2024-11-29 05:00] VITALS: BP 104/65; PULSE 87; RESP 18; TEMP 98.3; O2SAT 97
[2024-11-29 08:10] VITALS: O2SAT 96
[2024-11-29 09:00] VITALS: BP 117/72; PULSE 80; RESP 17; TEMP 97.5; O2SAT 98
--- NOTE | 2024-11-29 10:44 | DVH ---
INDICATION: Ovarian cyst 3.7cm RIGHT r/o torsion TECHNIQUE: Multiple real-time grayscale transabdominal sonographic images along with color and duplex Doppler of the uterus and ovaries were obtained. COMPARISON: None FINDINGS: The uterus measures 6.9 x 5.4 x 3.1 cm. The endometrial stripe measures 0.3 cm. Intrauterin e device is visualized in the endometrial cavity. The right ovary measures 3.4 x 2.0 x 2.6 cm. The left ovary measures 3.3 x 2.1 x 2.5 cm. Subsequent color and duplex Doppler interrogation of the ovaries demonstrated symmetric vascular flow to both ovaries, though this does not exclude the possibility of torsion due to the dual blood suppl y. IMPRESSION: 1. Grossly unremarkable pelvic ultrasound. Intrauterine device is visualized in the endometrial cavit y.
[2024-11-29] MEDS ORDERED: DOXY100C79 PO (12:23)
--- NOTE | 2024-11-29 12:25 | DVHPN2 ---
Reviewed: Care Plan, H&P, Labs, Medications, Previous Orders, Radiology Changes from previous H/P or p: No Changes Eyes: No Pain, No Vision change, No Conjunctivae inflammation, No Eyelid inflammation, No Other, No Redness ENT: No Ear pain, No Ear discharge, No Nose pain, No Nose discharge, No Nose congestion, No Mouth pain, No Mouth swelling, No Throat pain, No Throat swelling, No Other Cardiovascular: No Chest Pain, No Palpitations, No Orthopnea, No Paroxysmal Noc. Dyspnea, No Edema, No Lt Headedness, No Other Respiratory: No Cough, No Dry, No Shortness of breath, No SOB with excertion, No Wheezing, No Hemoptysis, No Pleuritic Pain, No Sputum, No Other Gastrointestinal: Nausea, Vomiting, Abdominal Pain; No Diarrhea; Constipation; No Melena, No Hematochezia; Other (Poor appetite) Genitourinary: No Dysuria, No Frequency, No Incontinence, No Hematuria, No Retention, No Other Musculoskeletal: No other, No neck pain, No shoulder pain, No arm pain, No back pain, No hand pain, No leg pain, No foot pain Skin: No Rash, No Lesions, No Jaundice, No Bruising, No Other Objective Vitals Vital Signs Date Time Temp Pulse Resp B/P (MAP) Pulse Ox O2 Delivery O2 Flow Rate FiO2 11/29/24 09:00 97.5 80 17 117/72 (87) 98 97.5 11/29/24 08:10 Room Air* 0 21 Intake/Output Intake and Output 11/29/24 07:00 Intake Total 2600 ml Balance 2600 ml Intake Oral 1750 ml IV Total 850 ml # Voids 8 # Bowel Movements 2 Medications Current Medications Medications Dose Ordered Sig/Karen Route Start Time Stop Time Status Last Admin Dose Admin Acetaminophen/ Hydrocodone Bitart 1 tab Q4HP PRN PO 11/27/24 01:30 Ondansetron HCl 4 mg Q4HP PRN IV 11/27/24 01:30 11/27/24 16:12 4 MG Docusate Sodium 100 mg BIDPRN PRN PO 11/27/24 01:30 Acetaminophen 650 mg Q6HP PRN PO 11/27/24 01:30 Pantoprazole Sodium 40 mg DAILY IV 11/27/24 10:00 11/29/24 09:34 40 MG Nitroglycerin 0.4 mg Q5MINP PRN SL 11/27/24 04:30 Morphine Sulfate 2 mg Q30M PRN IV 11/27/24 04:30 Ceftriaxone Sodium 50 ml @ 100 mls/hr DAILY@09 IV 11/28/24 09:00 11/29/24 09:34 100 MLS/HR Lactated Ringer's 1,000 ml @ 150 mls/hr Q6H40M IV 11/27/24 14:00 11/29/24 05:28 150 MLS/HR Laboratory Results Laboratory Tests 11/28/24 05:00 Urinalysis Test 11/26/24 22:37 Urine Color Yellow (Yellow) Urine Clarity Turbid (Clear) H Urine pH 6.0 (5.0-9.0) Urine Specific [place] 1.039 (1.001-1.035) Urine Protein 1+ (Negative) H Urine Ketones 4+ (Negative) H Urine Blood 2+ /uL (Negative) H Urine Nitrite Negative (Negative) Urine Bilirubin Negative (Negative) Urine Urobilinogen 3 mg/dL (Negative) H Urine Leukocyte Esterase 2+ /uL (Negative) Urine RBC 9 /hpf (0 - 4) Urine Microscopic WBC 50 /HPF (0-5) H Urine Squamous Epithelial Cells Mod /hpf (<5) Urine Bacteria None seen /hpf (None Seen) Urine Hyaline Casts Few /lpf (0 - 2) Urine Mucus Few (None Seen) Urine Glucose Normal mg/dL (Normal) Urine Test Negative (Negative) Microbiology Microbiology Date/Time Source Procedure Growth Status 11/27/24 02:30 Blood Blood Culture - Preliminary NO GROWTH AFTER 48 HOURS OF INCUBATION. Resulted 11/26/24 22:37 Voided Urine Urine Culture - Final Complete Labs and/or images reviewed: Labs reviewed by me, Image(s) reviewed by me Assessment/Plan Assessment/Plan Sepsis secondary to urinary tract infection Acute urinary tract infection: Blood cultures negative, urine cultures negative, treated with Rocephin, we will go home on Levaquin Intractable nausea and vomiting secondary to sepsis, we will check urine drug screen, pantoprazole Acute dehydration: IV fluids ruled out 3.7 cm right ovarian cyst: Consult for advised outpatient follow up with the [facility] Pelvic ultrasound negative CT abdomen pelvis without contrast negative for any acute pathology Plan discussed with: Patient Date of Service: Nov 29, 2024 Billing Provider: NASIMA HAYNES MD Common Visit Codes: [id number] INP/OBS CARE(HIGH) NASIMA HAYNES MD Nov 29, 2024 12:25
[2024-11-29] MEDS ORDERED: LEVO500T91 PO (12:26)
--- NOTE | 2024-11-29 12:32 | DVHDS2 ---
Discharge Summary Date of Admission Nov 27, 2024 at 04:23 Date of Discharge: Nov 29, 2024 Admitting Diagnosis Abdominal pain Wounds: None Labs/Diagnostic Data: Laboratory Results Test 11/29/24 12:00 11/28/24 05:00 11/27/24 16:44 11/26/24 22:37 White Blood Count 9.5 10^3/uL (4.4-10.8) Red Blood Count 4.64 10^6/uL (4.0-5.20) Hemoglobin 13.7 g/dL (12.2-16.2) Hematocrit 39.7 % (36.0-46.0) Mean Corpuscular Volume 85.6 fL (80.0-100.0) Mean Corpuscular Hemoglobin 29.5 pg (28.0-32.0) Mean Corpuscular Hemoglobin Concent 34.5 g/dL (32.0-36.0) Red Cell Distribution Width 13.0 % (11.8-14.3) Platelet Count 321 10^3/uL (140-450) Mean Platelet Volume 8.1 fL (6.9-10.8) Neutrophils (%) (Auto) 53.4 % (37.0-80.0) Lymphocytes (%) (Auto) 36.4 % (10.0-50.0) Monocytes (%) (Auto) 9.5 % (0.0-12.0) Eosinophils (%) (Auto) 0.4 % (0.0-7.0) Basophils (%) (Auto) 0.3 % (0.0-2.0) Neutrophils # (Auto) 5.1 10 ^3/uL (1.6-8.6) Lymphocytes # (Auto) 3.5 10 ^3/uL (0.4-5.4) Monocytes # (Auto) 0.9 10 ^3/uL (0-1.3) Eosinophils # (Auto) 0 10 ^3/uL (0-0.8) Basophils # (Auto) 0 10 ^3/uL (0-0.2) Nucleated Red Blood Cells 0.0 % Sodium Level 137 mmol/L (136-145) Potassium Level 3.3 mmol/L (3.5-5.1) Chloride Level 101 mmol/L (98-107) Carbon Dioxide Level 26 mmol/L (20-31) Anion Gap 10 (5-15) Blood Urea Nitrogen 7 mg/dL (9-23) Creatinine 0.56 mg/dL (0.550-1.02) Glomerular Filtration Rate Calc 131 mL/min (>90) BUN/Creatinine Ratio 12.5 (10.0-20.0) Serum Glucose 87 mg/dL (74-106) Calcium Level 9.4 mg/dL (8.7-10.4) Total Bilirubin 0.8 mg/dL (0.2-1.0) Aspartate Amino Transferase (AST) < 8 U/L (13-40) Alanine Aminotransferase (ALT) 13 U/L (7-40) Alkaline Phosphatase 56 U/L (46-116) Total Protein 6.5 g/dL (5.7-8.2) Albumin 4.3 g/dL (3.2-4.8) Urine Opiates Screen Neg (NEGATIVE) Urine Fentanyl Screen Neg (NEGATIVE) Urine Barbiturates Screen Neg (NEGATIVE) Urine Phencyclidine Screen Neg (NEGATIVE) Urine Amphetamines Screen Neg (NEGATIVE) Urine Benzodiazepines Screen Neg (NEGATIVE) Urine Cocaine Screen Neg (NEGATIVE) Urine Cannabinoids Screen Pos (NEGATIVE) Urine Color Yellow (Yellow) Urine Clarity Turbid (Clear) Urine pH 6.0 (5.0-9.0) Urine Specific [place] 1.039 (1.001-1.035) Urine Protein 1+ (Negative) Urine Ketones 4+ (Negative) Urine Blood 2+ /uL (Negative) Urine Nitrite Negative (Negative) Urine Bilirubin Negative (Negative) Urine Urobilinogen 3 mg/dL (Negative) Urine Leukocyte Esterase 2+ /uL (Negative) Urine RBC 9 /hpf (0 - 4) Urine Microscopic WBC 50 /HPF (0-5) Urine Squamous Epithelial Cells Mod /hpf (<5) Urine Bacteria None seen /hpf (None Seen) Urine Hyaline Casts Few /lpf (0 - 2) Urine Mucus Few (None Seen) Urine Glucose Normal mg/dL (Normal) Urine Test Negative (Negative) Test 11/26/24 21:13 11/26/24 20:53 Influenza Type A Antigen Negative (Negative) Influenza Type B Antigen Negative (Negative) SARS-CoV-2 Antigen (Rapid) Negative (NEGATIVE) POC Glucose 114 mg/dl (70-106) Other Laboratory Tests 11/28/24 05:00 Brief Hx & Hospital Course: 54-year-old female came in complaining of abdominal pain found to have urinary tract infection treated with Rocephin blood cultures negative urine cultures negative. Acute dehydration treated with IV fluids ruled out. 3.7 cm right ovarian cyst seen by gynecology Dr. Peralta. . CT abdomen pelvis without contrast 3.7 cm right ovarian cyst. Pelvic ultrasound negative. Accounts Specialist advised outpatient follow up with the [facility] discharged home on Levaquin for UTI. The patient is afebrile stable with no pain at the time of discharge Consults/Reason for consult GI Dr. Manzano Operations or Procedures CT abdomen pelvis without contrast Pelvic ultrasound Condition at Discharge: Fair Final Diagnosis/Problems List Sepsis secondary to urinary tract infection Acute urinary tract infection: Blood cultures negative, urine cultures negative, treated with Rocephin, we will go home on Levaquin Intractable nausea and vomiting secondary to sepsis, we will check urine drug screen, pantoprazole Acute dehydration: IV fluids ruled out 3.7 cm right ovarian cyst: Consult for advised outpatient follow up with [facility] Pelvic ultrasound negative CT abdomen pelvis without contrast negative for any acute pathology Discharge Disposition: Home Discharge Instruct/Medications Diet: Regular Activity: Light activity Follow Up/Referral: [facility] Medications: Levaquin Transmitted to pharmacy 39 (Time Taken for discharge summary 39 minutes) Discharge Statement: "Patient was advised to return to the ER or call 911 if any headaches, dizziness, shortness of breath, chest pain, abdominal pain, bleeding, fevers, or worsening of medical condition. Patient was counseled about treatment plan, medications, possible side effects, patientverbalized understanding. All questions were answered to the best of my ability. This discharge took greater then 30 minutes in planning, reviewing documentation, counseling the patient, and discussing with other team members." ASSESSMENT ASSESSMENT Hospital Course Improved Assessment Sepsis secondary to urinary tract infection Acute urinary tract infection: Blood cultures negative, urine cultures negative, treated with Rocephin, we will go home on Levaquin Intractable nausea and vomiting secondary to sepsis, we will check urine drug screen, pantoprazole Acute dehydration: IV fluids ruled out 3.7 cm right ovarian cyst: Consult for advised outpatient [facility] Pelvic ultrasound negative CT abdomen pelvis without contrast negative for any acute pathology Date of Service: Nov 29, 2024 Billing Provider: NASIMA HAYNES MD Common Visit Codes: [id number] DISCH DAY >30min NASIMA HAYNES MD Nov 29, 2024 12:32
--- NOTE | 2024-11-29 12:48 | DVHINCON2 ---
Date of service: Nov 29, 2024 Reason for Consultation Ovarian cyst, abdominal pain History of Present Illness HPI 24y admitted with pelvic pain, abdominal pain. N/V and diarrhea Patient was treated empirically for UTI with IV antibiotics and improved symptoms Denies any fever since admission. Denies any vaginal discharge or AUB Patient has a MIRENA IUD in place x 2 years. Sexually active with 1 partner x 7 years Denies any history of STI's. CT showed a Rt ovarian cyst 3.7 cm, pelvic US is completely normal. Home Meds Active Scripts Levofloxacin Hemihydrate (LEVAQUIN 500 MG) 500 Mg Tab, 1 TAB PO DAILY, #7 TAB Prov:NASIMA HAYNES MD 11/29/24 Past Medical History Cardiac: No pertinent Hx Pulmonary: No pertinent Hx Central Nervous System: No pertinent Hx GI: No pertinent Hx Hemotology/Oncology: No pertinent Hx Hepatobiliary: No pertinent Hx Psychiatric: No pertinent Hx Musculoskeletal: No pertinent Hx Rheumotologic: No pertinent Hx Infectious Disease: No peritnent Hx ENT: No pertinent Hx Renal/: No pertinent Hx Endocrine: No pertinent Hx Dermatology: No pertinent Hx Past Surgical History: No pertinent Hx Patient Family History: Patient reports no known family medical history. Smoker: No Hx (Negative) Alocohol: None Drugs: None Lives with: With family Review of Systems Constitutional: No symptom reported Ears, Nose, & Throat: No symptom reported Eyes: No symptom reported Pulmonary/Respiratory: No symptom reported Cardiovascular: No symptom reported Gastrointestinal: Nausea, Vomiting, Abdominal Pain, Diarrhea Genitourinary: Dysuria, Pain Musculoskeletal: No symptom reported Skin: No symptom reported Psychiatric: No symptom reported Endocrine: No symptom reported Hemotologic/Lymphatic: No symptom reported H&P Exam Vital Signs Vital Signs Date Time Temp Pulse Resp B/P (MAP) Pulse Ox O2 Delivery O2 Flow Rate FiO2 11/29/24 09:00 97.5 80 17 117/72 (87) 98 97.5 11/29/24 08:10 Room Air* 0 21 General Appeara: Well developed, Normal Appearance Head Exam: Normal inspection Eye Exam: bilateral eye PERRL Mouth: Normal Inspection Pulmonary/Respiratory: Normal inspection Cardiovascular/Chest: Normal inspection Abdominal Exam: Normal bowel sounds, Soft, Other (suprapubic tenderness ) Abdominal Pain Onset Location: Suprapubic Rectal Exam: Deferred Pelvic Exam: External exam normal, Bimanual exam normal, Tender adnexa (suprapubic and rt adnexal tenderness, no CMT) Tendon/ Neuro: Normal sensation Motor/Sensory: Normal sensory function Neuro/Mental St: Alert, Oriented Labs/Xrays Labs Test 11/29/24 12:00 11/28/24 05:00 11/27/24 16:44 11/26/24 22:37 Range/Units White Blood Count 9.5 # 4.4-10.8 10^3/uL Red Blood Count 4.64 4.0-5.20 10^6/uL Hemoglobin 13.7 12.2-16.2 g/dL Hematocrit 39.7 36.0-46.0 % Mean Corpuscular Volume 85.6 80.0-100.0 fL Mean Corpuscular Hemoglobin 29.5 28.0-32.0 pg Mean Corpuscular Hemoglobin Concent 34.5 32.0-36.0 g/dL Red Cell Distribution Width 13.0 11.8-14.3 % Platelet Count 321 140-450 10^3/uL Mean Platelet Volume 8.1 6.9-10.8 fL Neutrophils (%) (Auto) 53.4 37.0-80.0 % Lymphocytes (%) (Auto) 36.4 10.0-50.0 % Monocytes (%) (Auto) 9.5 0.0-12.0 % Eosinophils (%) (Auto) 0.4 0.0-7.0 % Basophils (%) (Auto) 0.3 0.0-2.0 % Neutrophils # (Auto) 5.1 1.6-8.6 10 ^3/uL Lymphocytes # (Auto) 3.5 0.4-5.4 10 ^3/uL Monocytes # (Auto) 0.9 0-1.3 10 ^3/uL Eosinophils # (Auto) 0 0-0.8 10 ^3/uL Basophils # (Auto) 0 0-0.2 10 ^3/uL Nucleated Red Blood Cells 0.0 % Sodium Level 137 136-145 mmol/L Potassium Level 3.3 L 3.5-5.1 mmol/L Chloride Level 101 98-107 mmol/L Carbon Dioxide Level 26 20-31 mmol/L Anion Gap 10 5-15 Blood Urea Nitrogen 7 L 9-23 mg/dL Creatinine 0.56 0.550-1.02 mg/dL Glomerular Filtration Rate Calc 131 >90 mL/min BUN/Creatinine Ratio 12.5 10.0-20.0 Serum Glucose 87 74-106 mg/dL Calcium Level 9.4 8.7-10.4 mg/dL Total Bilirubin 0.8 0.2-1.0 mg/dL Aspartate Amino Transferase (AST) < 8 L 13-40 U/L Alanine Aminotransferase (ALT) 13 7-40 U/L Alkaline Phosphatase 56 46-116 U/L Total Protein 6.5 5.7-8.2 g/dL Albumin 4.3 3.2-4.8 g/dL Urine Opiates Screen Neg NEGATIVE Urine Fentanyl Screen Neg NEGATIVE Urine Barbiturates Screen Neg NEGATIVE Urine Phencyclidine Screen Neg NEGATIVE Urine Amphetamines Screen Neg NEGATIVE Urine Benzodiazepines Screen Neg NEGATIVE Urine Cocaine Screen Neg NEGATIVE Urine Cannabinoids Screen Pos NEGATIVE Urine Color Yellow Yellow Urine Clarity Turbid H Clear Urine pH 6.0 5.0-9.0 Urine Specific [place] 1.039 H 1.001-1.035 Urine Protein 1+ H Negative Urine Ketones 4+ H Negative Urine Blood 2+ H Negative /uL Urine Nitrite Negative Negative Urine Bilirubin Negative Negative Urine Urobilinogen 3 H Negative mg/dL Urine Leukocyte Esterase 2+ Negative /uL Urine RBC 9 0 - 4 /hpf Urine Microscopic WBC 50 H 0-5 /HPF Urine Squamous Epithelial Cells Mod <5 /hpf Urine Bacteria None seen None Seen /hpf Urine Hyaline Casts Few 0 - 2 /lpf Urine Mucus Few None Seen Urine Glucose Normal Normal mg/dL Urine Test Negative Negative Test 11/26/24 21:13 11/26/24 20:53 Range/Units Influenza Type A Antigen Negative Negative Influenza Type B Antigen Negative Negative SARS-CoV-2 Antigen (Rapid) Negative NEGATIVE POC Glucose 114 H 70-106 mg/dl Microbiology Date/Time Source Procedure Growth Status 11/27/24 02:30 Blood Blood Culture - Preliminary NO GROWTH AFTER 48 HOURS OF INCUBATION. Resulted 11/26/24 22:37 Voided Urine Urine Culture - Final Complete Assessment/Plan Admitting Diagnosis: Acute abdominal and pelvic pain, Possible PID Rt ovarian cyst 3.7 cm (not seen on pelvic US) Presence of IUD UTI, resolved Plan Recommend F/U outpatient clinic [employer]ATIVE SERVICES COORDINATOR Await GC/CT results Would treat empirically for PID with PO Doxycycline/Flagyl PO x 14 days IUD does not need to be removed if patient continues to improve CREATIVE SERVICES COORDINATOR will sign off. Thank you for allowing me to participate in the care of this patient. Plan discussed with: Patient Date of Service: Nov 29, 2024 Billing Provider: LE SWANSON DO Common Visit Codes: CONSULT ONLY Consultation Codes: [id number] CONSULT <60MIN LE SWANSON DO Nov 29, 2024 12:48
[2024-11-29] MEDS ORDERED: DOXY-111 PO (12:49)
[2024-11-29] MEDS ORDERED: METR-344 PO (12:49)
[2024-11-29 13:00] VITALS: BP 109/64; PULSE 77; RESP 16; TEMP 98; O2SAT 97
== END 2024-11-29 15:00 | disposition home or self-care (01) | DRG 720 ==
LOC: ER 20:23 → OVERFLOW 11-27 04:23 → EAST 11-27 05:35
PROVIDERS: ADMIT Family Medicine; ATTEND Family Medicine
DX: A41.9 Sepsis, unspecified organism (principal); E86.0 Dehydration; N30.00 Acute cystitis without hematuria; Z20.822 Contact with and (suspected) exposure to COVID-19; N83.201 Unspecified ovarian cyst, right side; F12.10 Cannabis abuse, uncomplicated; Z97.5 Presence of (intrauterine) contraceptive device; Z71.51 Drug abuse counseling and surveillance of drug abuser; Z79.899 Other long term (current) drug therapy
CPT/HCPCS: 36415; 74177; 76856; 80053; 80307; 81001; 81025; 82962; 85025; 87040; 87086; 87426; 87804; 96361; 96365; 96375; G0378; J0131; J0692; J2405; J2470

== ENCOUNTER 2024-12-19 09:10 | Emergency (ER) | payer MEDICAID ==
[~2024-12-19] VITALS: Ht 157.5 cm; Wt 73.3 kg
[~2024-12-19 09:10] MED LIST: DOXY-111 PO; LEVO500T91 PO; METR-344 PO; ONDANSETRON ODT 4 MG TAB ONE
[2024-12-19] MEDS: ONDANSETRON ODT 4 MG TAB PO ONE (09:26)
[2024-12-19 09:38] LABS: Basophils # (auto) 0 10 ^3/uL (0-0.2); Basophils % (auto) 0.3 % (0.0-2.0); Eosinophils # (auto) 0 10 ^3/uL (0-0.8); Hematocrit 42.1 % (36.0-46.0); Hemoglobin 14.6 g/dL (12.2-16.2); Lymphocytes # (auto) 1.5 10 ^3/uL (0.4-5.4); Lymphocytes % (auto) 11.6 % (10.0-50.0); Mean Corpuscular Hemoglobin 30.1 pg (28.0-32.0); Mean Corpuscular Hgb Conc. 34.6 g/dL (32.0-36.0); Mean Corpuscular Volume 86.9 fL (80.0-100.0); Monocytes # (auto) 0.9 10 ^3/uL (0-1.3); Monocytes % (auto) 6.7 % (0.0-12.0); Neutrophils # (auto) 10.8 10 ^3/uL (1.6-8.6); Neutrophils % (auto) 81.4 % (37.0-80.0); Nucleated Red Blood Cells % 0.1 %; Platelet Count (auto) 360 10^3/uL (140-450); Red Blood Cells 4.84 10^6/uL (4.0-5.20); Red Cell Distribution Width 13.5 % (11.8-14.3); White Blood Cell 13.3 10^3/uL (4.4-10.8)
--- NOTE | 2024-12-19 09:44 | ED.PDOC ---
GI ASSESSMENT HPI Comments 24 y.o female presents to the ED for a chief complaint of RLQ pain associated with nausea and vomiting that has been ongoing since her previous visit at this hospital on 11/27/24. Patient was admitted initially for right ovarian cyst and UTI diagnose but states she never got better s/p discharge. Patient has no tenderness to RLQ, states pain is intermittent and non radiating. Patient denies any diarrhea, fever, chills. Chief Complaint: Pelvic Pain Time Seen by MD: 09:20 Primary Care Provider: NONE Reviewed Notes: Nurses Notes, Medications, Allergies Allergies: Coded Allergies: NO KNOWN ALLERGIES (Unverified , 11/26/24) Home Meds Active Scripts Metronidazole (Flagyl) 500 Mg Tab, 500 MG PO BID for 14 Days, #28 TAB Prov:LE SWANSON DO 11/29/24 Doxycycline Monohydrate (Doxycycline Monohydrate) 100 Mg Tab, 100 MG PO BID for 14 Days, #28 TAB Prov:LE SWANSON DO 11/29/24 Levofloxacin Hemihydrate (LEVAQUIN 500 MG) 500 Mg Tab, 1 TAB PO DAILY, #7 TAB Prov:NASIMA HAYNES MD 11/29/24 Information Source: Patient Mode of Arrival: Ambulatory Timing: Days Duration: Since onset Quality: Sharp Vomitus: Hard Stool: Normal Severity: Moderate Recent Hx of: None Pain Location: RLQ Modifying Factors: Nothing Associated sign and symptoms: Nausea, Vomiting, Abdominal Pain Past Medical History PAST MEDICAL HISTORY: Denies Surgical History: Denies all surgeries Family History Family History: Reviewed,noncontributory to illness Social History Smoker: Non-Smoker Alcohol: Denies ETOH Use Drugs: Denies Drug Use Lives In: Home Constitutional: denies: chills, diaphoresis, fatigue, fever, malaise, sweats, weakness, others EENTM: denies: blurred vision, double vision, ear bleeding, ear discharge, ear drainage, ear pain, ear ringing, eye pain, eye redness, hearing loss, mouth pain, mouth swelling, nasal discharge, nose bleeding, nose congestion, nose pain, photophobia, tearing, throat pain, throat swelling, voice changes, others Respiratory: denies: cough, hemoptysis, orthopnea, SOB at rest, shortness of breath, SOB with excertion, stridor, wheezing, others Cardiovascular: denies: chest pain, dizzy spells, diaphoresis, Dyspnea on exertion, edema, irregular heart beat, left arm pain, lightheadedness, palpitations, PND, syncope, others Gastrointestinal: reports: abdominal pain, nausea, vomiting; denies: abdomen distended, blood streaked bowels, constipated, diarrhea, dysphagia, difficulty swallowing, hematemesis, melena, poor appetite, poor fluid intake, rectal bleeding, rectal pain, others Genitourinary: denies: abnormal vagina bleeding, burning, dyspareunia, dysuria, flank pain, frequency, hematuria, incontinence, pain, , vagina discharge, urgency, others Neurological: denies: dizziness, fainting, headache, left sided numbness, left sided weakness, numbness, paresthesia, pre-existing deficit, right sided numbness, right sided weakness, seizure, speech problems, tingling, tremors, weakness, others Musculoskeletal: denies: back pain, gout, joint pain, joint swelling, muscle pain, muscle stiffness, neck pain, others Integumetry: denies: bruises, change in color, change in hair/nails, dryness, laceration, lesions, lumps, rash, wounds, others Allergic/Immunocompromised: denies: Difficulty Healing, Frequent Infections, Hives, Itching, others Hematologic/Lymphatic: denies: anemia, blood clots, easy bleeding, easy bruising, swollen glands, others Endocrine: denies: excessive hunger, excessive sweating, excessive thirst, excessive urination, flushing, intolerance to cold, intolerance to heat, unexplained weight gain, unexplained weight loss, others Psychiatric: denies: anxiety, bipolar disorder, depression, hopeless, panic disorder, schizophrenia, sleepless, suicidal, others All Other Systems: Reviewed and Negative Physical Exam General Appearance: No Apparent Distress, Normal HEENT: Normal ENT Inspection, Pharynx Normal, TMs Normal Neck: Full Range of Motion, Non-Tender, Normal, Normal Inspection Respiratory: Chest Non-Tender, Lungs Clear, No Accessory Muscle Use, No Respiratory Distress, Normal Breath Sounds Cardiovascular: No Edema, No JVD, No Murmur, No Gallop, Normal Peripheral Pulses, Regular Rate/Rhythm Breast Exam: Deferred Gastrointestinal: No Organomegaly, Non Tender, No Pulsatile Mass, Normal Bowel Sounds, Soft Genitalia: Deferred Pelvic: Deferred Rectal: Deferred Extremities: No calf tenderness, Normal capillary refill, Normal inspection, Normal range of motion, Non-tender, No pedal edema Musculoskeletal : Apperance: Normal Neurologic: Alert, ultrasound spec II-XII nml as Tested, No Motor Deficits, Normal Affect, Normal Mood, No Sensory Deficits Cerebellar Function: Normal Reflexes: Normal Skin: Dry, Normal Color, Warm Lymphatic: No Adenopathy Was a procedure done? Was a procedure done?: No GI differential Dx Differential Diagnosis: Appendicitis, Complete , Incomplete , Inevitable , Missed , Threatened , Abruptio placentae, Bowel Obstruction, Constipation, Diverticular disease, Dysmenorrhea, Ectopic , Gastroenteritis, Hernia, Inflammatory BD, Ovarian cyst/torsion, UTI, Urolithiasis, Diabetes/ DKA, Food Poisoning, , Bacterial, Parasitic, Viral, Impaction, Mass, Kidney Stone X-Ray, Labs, Meds, VS Vital Signs Date Time Temp Pulse Resp B/P (MAP) Pulse Ox O2 Delivery O2 Flow Rate FiO2 12/19/24 10:49 97.3 90 16 113/64 (80) 95 97.3 12/19/24 09:20 Room Air* 0 21 12/19/24 09:18 98.0 112 16 125/70 (88) 97 Lab Test 12/19/24 09:21 12/19/24 09:18 Range/Units White Blood Count 13.3 H 4.4-10.8 10^3/uL Red Blood Count 4.84 4.0-5.20 10^6/uL Hemoglobin 14.6 12.2-16.2 g/dL Hematocrit 42.1 36.0-46.0 % Mean Corpuscular Volume 86.9 80.0-100.0 fL Mean Corpuscular Hemoglobin 30.1 28.0-32.0 pg Mean Corpuscular Hemoglobin Concent 34.6 32.0-36.0 g/dL Red Cell Distribution Width 13.5 11.8-14.3 % Platelet Count 360 140-450 10^3/uL Mean Platelet Volume 8.4 6.9-10.8 fL Neutrophils (%) (Auto) 81.4 H 37.0-80.0 % Lymphocytes (%) (Auto) 11.6 10.0-50.0 % Monocytes (%) (Auto) 6.7 0.0-12.0 % Eosinophils (%) (Auto) 0.0 0.0-7.0 % Basophils (%) (Auto) 0.3 0.0-2.0 % Neutrophils # (Auto) 10.8 H 1.6-8.6 10 ^3/uL Lymphocytes # (Auto) 1.5 0.4-5.4 10 ^3/uL Monocytes # (Auto) 0.9 0-1.3 10 ^3/uL Eosinophils # (Auto) 0 0-0.8 10 ^3/uL Basophils # (Auto) 0 0-0.2 10 ^3/uL Nucleated Red Blood Cells 0.1 % Sodium Level 133 L 136-145 mmol/L Potassium Level 3.2 L 3.5-5.1 mmol/L Chloride Level 98 98-107 mmol/L Carbon Dioxide Level 23 20-31 mmol/L Anion Gap 12 5-15 Blood Urea Nitrogen 9 9-23 mg/dL Creatinine 0.65 0.550-1.02 mg/dL Glomerular Filtration Rate Calc 127 >90 mL/min BUN/Creatinine Ratio 13.8 10.0-20.0 Serum Glucose 110 H 74-106 mg/dL Calcium Level 10.2 8.7-10.4 mg/dL Total Bilirubin 1.0 0.2-1.0 mg/dL Aspartate Amino Transferase (AST) 15 13-40 U/L Alanine Aminotransferase (ALT) 32 7-40 U/L Alkaline Phosphatase 65 46-116 U/L Total Protein 8.3 H 5.7-8.2 g/dL Albumin 5.2 H 3.2-4.8 g/dL Lipase 54 H 12-53 U/L Beta HCG, Quantitative 0.2 L 1.5-4.2 mIU/mL Urine Color Yellow Yellow Urine Clarity Cloudy H Clear Urine pH 6.0 5.0-9.0 Urine Specific [place] 1.026 1.001-1.035 Urine Protein 2+ H Negative Urine Ketones 4+ H Negative Urine Blood 1+ H Negative /uL Urine Nitrite Negative Negative Urine Bilirubin Negative Negative Urine Urobilinogen Normal Negative mg/dL Urine Leukocyte Esterase 3+ Negative /uL Urine RBC 18 0 - 4 /hpf Urine Microscopic WBC 242 H 0-5 /HPF Urine Squamous Epithelial Cells Many <5 /hpf Urine Bacteria Few H None Seen /hpf Urine Mucus Few None Seen Urine Glucose Trace Normal mg/dL Urine Test Negative Negative Current Medications Medications (Trade) Dose Ordered Sig/Karen Route Start Time Stop Time Status Last Admin Ondansetron HCl (Zofran Po) 4 mg ONCE ONCE PO 12/19/24 09:15 12/19/24 09:16 DC 12/19/24 09:[address] [address] Ph: [phone] DIAGNOSTIC IMAGING Diagnostic Imaging Report : [id number] Signed PATIENT: ALEX MEREDITH ACCT: [id number] UNIT: [id number] : 2000 LOC: ER ROOM / BED: / AGE / SEX: 24 / F ADM STATUS: REG ER SERVICE 7 ORDERING PHYSICIAN: SON CRAWLEY MD PROCEDURE(s): ABPL - CT AB PEL WO CON-NO ORAL OR IV REASON: rlq pain ORDER NUMBER(s): [id number], ACCESSION NUMBER(s): [id number] Exam: CT CT AB PEL WO CON-NO ORAL OR IV History: rlq pain Comparison Study: CT of the abdomen pelvis performed on 11/27/2024. Technique: Multidetector spiral CT of the abdomen and pelvis was performed from lung bases to pubic symphysis. Imaging was performed without intravenous contrast. Coronal and sagittal multiplanar reformats were obtained from the axial data set by the technologist. Radiation Dose : 1. Abdomen/Pelvis: CTDIvol 10.58 mGy, DLP 612.14 mGy*cm. Findings: Evaluation of vasculature and solid organs is limited due to lack of intravenous contrast use. Lung Bases: Lung bases are clear. Visualized portions of the heart and pericardium are unremarkable. Liver: The liver is normal in size. No focal lesions. Fatty deposition near the falciform ligament. Gallbladder and Biliary Tree: The gallbladder is unremarkable. No intrahepatic or extrahepatic biliary ductal dilatation. Spleen: Unremarkable Pancreas: The pancreas is grossly unremarkable. Adrenal Glands: Unremarkable Kidneys: Kidneys are unremarkable without calculi or hydronephrosis. GI tract: The stomach is grossly normal in appearance. No evidence of small bowel wall thickening or abnormal dilatation to suggest bowel obstruction. The colon is unremarkable. The appendix is visualized and is normal. Peritoneum/mesentery/retroperitoneum. No evidence of free intraperitoneal air. No ascites. No evidence of suspicious lymphadenopathy. Abdominal Wall: Unremarkable. Vasculature: The visualized abdominal aorta is normal in size and caliber. Evaluation of abdominal and pelvic vessels is limited due to lack of intravenous contrast. Urinary Bladder: Grossly unremarkable for degree of distention. Pelvic Organs: There is an intrauterine device present. Left adnexal cystic les ion measures 2.1 cm and right adnexal cystic lesion measures 2.8 cm. Musculoskeletal: No aggressive focal bony lesions, acute fractures or dislocation. IMPRESSION: 1. No acute abdominal or pelvic findings. 2. Bilateral adnexal cystic lesions. These can be evaluated with pelvic ultrasound. ATED BY: HILARIO GOMEZ MD DICTATED DATE/TIME: 12/19/24 102 SIGNED BY: HILARIO GOMEZ MD SIGNED DATE/TIME: 12/19/24 102 CC: Time of 1ST Reevaluation: 09:35 Reevaluation 1ST: Unchanged Patient Education/Counseling: Diagnosis, Treatment, Prognosis, Need For Follow Up Family Education/Counseling: No Family Present Additional Information - I reviewed the following notes from patient's past medical encounters: 11/27/24 for intractable nausea and vomiting - The following tests were ordered, and results were reviewed by me: CT abdomen and pelvis, lab including BMP, CBC, CMP, Beta HCG, UA. Zofran - Additional information was gathered from interviewing the following independent Historian: None - I reviewed and agreed with the following test results read by other provider: Ct Abdomen and pelvic - I discussed treatments and results with medical personnel and: Patient pt has recurrent same pain. her last admission for ovarian cyst. ct this time also shows bilateral cysts otherwise the workup is unremarkable. she is stable to follow up with her doctor Departure 1 Departure Time of Disposition: 11:46 Impression: Primary Impression: Ovarian cyst Qualified Codes: N83.201 - Unspecified ovarian cyst, right side; N83.202 - Unspecified ovarian cyst, left side Additional Impression: Abdominal pain Qualified Codes: R10.9 - Unspecified abdominal pain Disposition: 01 HOME / SELF CARE / HOMELESS Condition: Good e-Prescriptions Ibuprofen Micronized (MOTRIN TABLET) 600 Mg Tb 600 MG PO TID PRN, #40 TAB *Black box warning-NSAIDS can increase risk of MT & hypertension, GI irritation, ulceration, bleed, perferation. Do not use post cardiac surgery. Use short duration/lowest effective dose. Prov: SON CRAWLEY MD 12/19/24 Discharged With: Self Critical Care Note Critical Care Time?: No Stability Stability form required: No I personally scribed for SON CRAWLEY MD [facility] on 12/19/24 at 09:44. Electronically submitted by Luz Jackson ([facility]). I personally scribed for SON CRAWLEY MD ([facility] on 12/19/24 at 10:55. Electronically submitted by Luz Jackson ([facility]). SON CRAWLEY MD Dec 19, 2024 09:44
[2024-12-19 09:59] LABS: Urine Bacteria FEW /hpf (None Seen); Urine Blood 1+ /uL (Negative); Urine Mucus FEW (None Seen); Urine Protein, UAD 2+ (Negative); Urine Specific Gravity 1.026 (1.001-1.035); Urine Squamous Epithelial Cell MANY /hpf (<5); Urine Urobilinogen Normal (Negative); Urine WBC 242 /HPF (0-5)
[2024-12-19 10:02] LABS: Urine Clarity Cloudy (Clear); Urine Color Yellow (Yellow)
[2024-12-19 10:03] LABS: Alanine Aminotransferase 32 U/L (7-40); Alkaline Phosphatase 65 U/L (46-116); Anion Gap 12 (5-15); Aspartate Aminotransferase 15 U/L (13-40); BUN/Creatinine Ratio 13.8 (10.0-20.0); Calcium 10.2 mg/dL (8.7-10.4); Carbon Dioxide 23 mmol/L (20-31); Chloride 98 mmol/L (98-107)
[2024-12-19 10:09] LABS: Albumin 5.2 g/dL (3.2-4.8); Blood Urea Nitrogen 9 mg/dL (9-23); Glucose 110 mg/dL (74-106); Potassium 3.2 mmol/L (3.5-5.1); Sodium 133 mmol/L (136-145); Total Protein 8.3 g/dL (5.7-8.2)
--- NOTE | 2024-12-19 10:24 | DVH ---
Exam: CT CT AB PEL WO CON-NO ORAL OR IV History: rlq pain Comparison Study: CT of the abdomen pelvis performed on 11/27/2024. Technique: Multidetector spiral CT of the abdomen and pelvis was performed from lung bases to pubic s ymphysis. Imaging was performed without intravenous contrast. Coronal and sagittal multiplanar reform ats were obtained from the axial data set by the technologist. Radiation Dose : 1. Abdomen/Pelvis: CTDIvol 10.58 mGy, DLP 612.14 mGy*cm. Findings: Evaluation of vasculature and solid organs is limited due to lack of intravenous contrast use. Lung Bases: Lung bases are clear. Visualized portions of the heart and pericardium are unremarkable. Liver: The liver is normal in size. No focal lesions. Fatty deposition near the falciform ligament. Gallbladder and Biliary Tree: The gallbladder is unremarkable. No intrahepatic or extrahepatic bilia ry ductal dilatation. Spleen: Unremarkable Pancreas: The pancreas is grossly unremarkable. Adrenal Glands: Unremarkable Kidneys: Kidneys are unremarkable without calculi or hydronephrosis. GI tract: The stomach is grossly normal in appearance. No evidence of small bowel wall thickening or abnormal dilatation to suggest bowel obstruction. The colon is unremarkable. The appendix is visualiz ed and is normal. Peritoneum/mesentery/retroperitoneum. No evidence of free intraperitoneal air. No ascites. No evidenc e of suspicious lymphadenopathy. Abdominal Wall: Unremarkable. Vasculature: The visualized abdominal aorta is normal in size and caliber. Evaluation of abdominal a nd pelvic vessels is limited due to lack of intravenous contrast. Urinary Bladder: Grossly unremarkable for degree of distention. Pelvic Organs: There is an intrauterine device present. Left adnexal cystic lesion measures 2.1 cm a nd right adnexal cystic lesion measures 2.8 cm. Musculoskeletal: No aggressive focal bony lesions, acute fractures or dislocation. IMPRESSION: 1. No acute abdominal or pelvic findings. 2. Bilateral adnexal cystic lesions. These can be evaluated with pelvic ultrasound.
[2024-12-19 11:03] LABS: Lipase 54 U/L (12-53)
[2024-12-19] MEDS ORDERED: IBU600T PO (11:47)
[2024-12-19 12:15] VITALS: BP 109/71; PULSE 86; RESP 18; TEMP 97.7; O2SAT 96
== END 2024-12-19 12:20 | disposition home or self-care (01) ==
LOC: ER 09:10
DX: N83.201 Unspecified ovarian cyst, right side (principal); R10.2 Pelvic and perineal pain; Z79.899 Other long term (current) drug therapy
CPT/HCPCS: 36415; 74176; 80053; 81001; 81025; 83690; 84702; 85025; 99284; Q0162

== ENCOUNTER 2025-08-10 19:41 | Inpatient (IN) | payer SELFPAY ==
[~2025-08-10] VITALS: Ht 157.5 cm; Wt 76.0 kg
[2025-08-10] MEDS: SODIUM CHLORIDE 0.9% 1,000 ML IV ONE (00:05)
[2025-08-10] MEDS: POTASSIUM CHL 20 Meq TABLET PO ONE (00:05)
[~2025-08-10 19:41] MED LIST changes: +IBU600T PO; -ONDANSETRON ODT 4 MG TAB ONE; +PANT40T PO
[2025-08-10 20:32] LABS: Hematocrit 42.7 % (36.0-46.0); Hemoglobin 14.9 g/dL (12.2-16.2); Mean Corpuscular Hemoglobin 29.3 pg (28.0-32.0); Mean Corpuscular Volume 83.9 fL (80.0-100.0); Nucleated Red Blood Cells % 0.0 %
[2025-08-10 20:35] LABS: Alanine Aminotransferase 36 U/L (7-40); Alkaline Phosphatase 89 U/L (46-116); Anion Gap 16 (5-15); BUN/Creatinine Ratio 13.1 (10.0-20.0); Blood Urea Nitrogen 11 mg/dL (9-23); Carbon Dioxide 27 mmol/L (20-31); Glucose 92 mg/dL (74-106); Sodium 137 mmol/L (136-145)
[2025-08-10 20:36] LABS: Bilirubin, Total 1.0 mg/dL (0.2-1.0)
[2025-08-10] MEDS: PANTOPRAZOLE 40 MG/10 ML VIAL INJ IV ONE (20:56)
[2025-08-10] MEDS: METOCLOPRAMIDE HCL 5MG/ml INJ 2ml VIAL IV ONE (20:59)
[2025-08-10] MEDS: METOCLOPRAMIDE HCL 5MG/ml INJ 2ml VIAL ONE (20:59)
[2025-08-10 21:02] LABS: Albumin 5.4 g/dL (3.2-4.8); Calcium 10.4 mg/dL (8.7-10.4); Chloride 94 mmol/L (98-107); Potassium 3.0 mmol/L (3.5-5.1); Total Protein 8.7 g/dL (5.7-8.2)
--- NOTE | 2025-08-10 21:02 | ED.PDOC ---
History of Present Illness HPI Comments 25 year old female presents to the ED with a chief compliant of abdominal pain onset 1 week. Patient states she has been experiencing lower abdominal pain for the past week as well as nausea, vomiting, diarrhea. For the past 3 days she has been experiencing hematemesis. Patient is also experiencing constipation, last bowel movement was 8 days ago, is not passing gas, normally has about 2 bowel movements a day. She states she experienced similar symptoms about 1 year ago, was diagnosed with RT ovarian cyst. Denies fever, chills, diarrhea, chest pain, shortness of breath, dizziness, headache, dysuria, hematuria, melena, blood in stool. No other symptoms or modifying factors present at this time. REVIEW OF SYSTEMS: General: No fever, no chills, or fatigue HEENT: No sore throat, no earache, no congestion, no neck pain. Cardiac: No chest pain. No palpitations. Lungs: No shortness of breath, no cough. GI: No nausea, no vomiting, no diarrhea, no constipation, no abdominal pain : No dysuria, frequency, or urgency. No hematuria. Musculoskeletal: No joint pain , no joint swelling, no extremity edema. Skin: No rash, no itching. Neuro: No headache, no dizziness, no weakness (And as sated in HPI) PHYSICAL EXAM: General: Awake, alert, repeatedly vomiting Skin: Skin in warm, dry and intact without rashes or lesions. HEENT: The head is normocephalic and atraumatic. Conjunctivae are clear without exudates or hemorrhage. Sclera is non-icteric. Neck: Normal range of motion. No JVD. Cardiac: Regular rate Respiratory: No signs of respiratory distress. No Stridor. Extremities: Upper and lower extremities are atraumatic in appearance without deformity. Neurological: The patient is awake, alert and oriented to person, place, and time with normal speech. Speech is clear. There is no facial asymmetry. Psychiatric: Appropriate mood and affect. Good judgement and insight. Chief Complaint: GI Bleed Time Seen by MD: 21:00 Primary Care Provider: NONE Reviewed Notes: Medications, Allergies Allergies: Coded Allergies: NO KNOWN ALLERGIES (Unverified , 11/26/24) Home Meds Active Scripts Ibuprofen Micronized (MOTRIN TABLET) 600 Mg Tb, 600 MG PO TID PRN, #40 TAB *Black box warning-NSAIDS can increase risk of DE & hypertension, GI irritation, ulceration, bleed, perferation. Do not use post cardiac surgery. Use short duration/lowest effective dose. Prov:SON CRAWLEY MD 12/19/24 Metronidazole (Flagyl) 500 Mg Tab, 500 MG PO BID for 14 Days, #28 TAB Prov:LE SWANSON DO 11/29/24 Doxycycline Monohydrate (Doxycycline Monohydrate) 100 Mg Tab, 100 MG PO BID for 14 Days, #28 TAB Prov:LE SWANSON DO 11/29/24 Levofloxacin Hemihydrate (LEVAQUIN 500 MG) 500 Mg Tab, 1 TAB PO DAILY, #7 TAB Prov:NASIMA HAYNES MD 11/29/24 Reported Medications Acetaminophen (Tylenol Extra Strength) 500 Mg Tab, 500 MG PO DAILY, TAB 08/11/25 Information Source: Patient Mode of Arrival: Ambulatory Severity: Moderate Timing: Weeks Duration: Since onset Prehospital treatment: None Past Medical History PAST MEDICAL HISTORY: Denies Surgical History: Denies all surgeries FIELD ASSISTANT History: Ovarian Cysts Family History Family History: Reviewed,noncontributory to illness Social History Smoker: Non-Smoker Alcohol: Denies ETOH Use Drugs: Denies Drug Use Lives In: Home Was a procedure done? Was a procedure done?: No Differential Dx Considerations may include: Differential diagnoses considered include: Abdominal aortic aneurysm, DE, esophageal rupture, intestinal obstruction, mesenteric ischemia, perforated viscus or solid organ rupture, CHF with hepatomegaly, pneumonia, abscess, appendicitis, biliary disease, diverticulitis, gastritis, gastroenteritis, hepatitis, hernia, inflammatory bowel disease, pancreatitis, peptic ulcer disease, urinary tract infection, ureteral colic, constipation, GERD, irritable syndrome, abdominal wall pain, nonspecific abdominal pain, herpes zoster, nephrolithiasis. X-Ray, Labs, Meds, VS Vital Signs Date Time Temp Pulse Resp B/P (MAP) Pulse Ox O2 Delivery O2 Flow Rate FiO2 08/10/25 21:16 120 18 118/94 08/10/25 21:11 120 22 118/97 (104) 98 08/10/25 19:43 99.0 114 20 132/75 98 99.0 Lab Test 08/10/25 20:15 08/10/25 20:05 Range/Units Urine Color Yellow Yellow Urine Clarity Clear Clear Urine pH 6.5 5.0-9.0 Urine Specific [place] 1.037 H 1.001-1.035 Urine Protein 2+ H Negative Urine Ketones 4+ H Negative Urine Blood Negative Negative /uL Urine Nitrite Negative Negative Urine Bilirubin Negative Negative Urine Urobilinogen Normal Negative mg/dL Urine Leukocyte Esterase Negative Negative /uL Urine RBC 4 0 - 4 /hpf Urine Microscopic WBC < 1 0-5 /HPF Urine Squamous Epithelial Cells Mod <5 /hpf Urine Bacteria Few H None Seen /hpf Urine Hyaline Casts Few 0 - 2 /lpf Urine Mucus Few None Seen Urine Glucose Normal Normal mg/dL Urine Test Negative Negative White Blood Count 16.5 H 4.4-10.8 10^3/uL Red Blood Count 5.09 4.0-5.20 10^6/uL Hemoglobin 14.9 12.2-16.2 g/dL Hematocrit 42.7 36.0-46.0 % Mean Corpuscular Volume 83.9 80.0-100.0 fL Mean Corpuscular Hemoglobin 29.3 28.0-32.0 pg Mean Corpuscular Hemoglobin Concent 34.9 32.0-36.0 g/dL Red Cell Distribution Width 13.1 11.8-14.3 % Platelet Count 399 140-450 10^3/uL Mean Platelet Volume 8.5 6.9-10.8 fL Neutrophils (%) (Auto) 84.3 H 37.0-80.0 % Lymphocytes (%) (Auto) 8.6 L 10.0-50.0 % Monocytes (%) (Auto) 6.9 0.0-12.0 % Eosinophils (%) (Auto) 0.0 0.0-7.0 % Basophils (%) (Auto) 0.2 0.0-2.0 % Neutrophils # (Auto) 13.9 H 1.6-8.6 10 ^3/uL Lymphocytes # (Auto) 1.4 0.4-5.4 10 ^3/uL Monocytes # (Auto) 1.1 0-1.3 10 ^3/uL Eosinophils # (Auto) 0 0-0.8 10 ^3/uL Basophils # (Auto) 0 0-0.2 10 ^3/uL Nucleated Red Blood Cells 0.0 % Sodium Level 137 136-145 mmol/L Potassium Level 3.0 L 3.5-5.1 mmol/L Chloride Level 94 L 98-107 mmol/L Carbon Dioxide Level 27 20-31 mmol/L Anion Gap 16 H 5-15 Blood Urea Nitrogen 11 9-23 mg/dL Creatinine 0.84 0.550-1.02 mg/dL Glomerular Filtration Rate Calc 99 >90 mL/min BUN/Creatinine Ratio 13.1 10.0-20.0 Serum Glucose 92 74-106 mg/dL Lactic Acid Level 1.6 0.4-2.0 mmol/L Calcium Level 10.4 8.7-10.4 mg/dL Total Bilirubin 1.0 0.2-1.0 mg/dL Aspartate Amino Transferase (AST) 14 13-40 U/L Alanine Aminotransferase (ALT) 36 7-40 U/L Alkaline Phosphatase 89 46-116 U/L Total Protein 8.7 H 5.7-8.2 g/dL Albumin 5.4 H 3.2-4.8 g/dL Lipase 40 12-53 U/L Current Medications Medications (Trade) Dose Ordered Sig/Karen Route Start Time Stop Time Status Last Admin Pantoprazole Sodium (Protonix) 40 mg ONCE ONCE IV 08/10/25 20:00 08/10/25 20:01 DC 08/10/25 20:56 Metoclopramide HCl (Reglan Injection) 10 mg ONCE ONCE IV 08/10/25 21:00 08/10/25 21:01 DC 08/10/25 20:59 Morphine Sulfate 2 mg ONCE ONCE IV 08/10/25 21:15 08/10/25 21:16 DC 08/10/25 21:16 [place] [id number] Ph: [phone] DIAGNOSTIC IMAGING Diagnostic Imaging Report : [id number] Signed PATIENT: ALEX MEREDITHACCT: [id number] UNIT: [id number] : 2000 LOC: ER ROOM / BED: / AGE / SEX: 25 / F ADM STATUS: REG ER SERVICE 52 ORDERING PHYSICIAN: KRISTINA LEIGH MD PROCEDURE(s): ABPLIV - CT AB PEL WITH IV CON ONLY REASON: Severe abdominal pain, nausea, vomiting, hematemesis ORDER NUMBER(s): [id number], ACCESSION NUMBER(s): [id number] Exam: CT CT AB PEL WITH IV CON ONLY History: Severe abdominal pain, nausea, vomiting, hematemesis Comparison Study: CT CT AB PEL WITH IV CON ONLY on DOS: 11/27/24 Technique: Multidetector spiral CT of the abdomen was performed from lung bases to pubic symphysis. Imaging was performed with IV contrast. Axial, coronal and sagittal multiplanar reformats were obtained from the axial data set by the chnologist. Radiation Dose : 1. Abdomen/Pelvis: CTDIvol 10.29 mGy, DLP 586.02 mGy*cm. Findings: Lower Chest: No acute findings. Liver: Diffuse hypoenhancement relative to the spleen. Gallbladder and Biliary Tree: Unremarkable Pancreas: Normal. Spleen: Normal. Adrenal Glands: Normal. Kidneys/Ureters: Normal. Bladder: Grossly unremarkable for degree of distention. Pelvic Organs: Unremarkable. Expected IUD positioning. Bowel: Normal caliber without wall thickening. Normal appendix. Vasculature: Unremarkable. Lymphadenopathy: No obvious adenopathy. Peritoneum: Physiologic volume of pelvic ascites. No free air or fluid collection. Abdominal Wall: No significant hernia. Musculoskeletal: No acute findings. IMPRESSION: No acute abdominopelvic abnormality. Radiation optimization: All CT scans at this facility use at least one of these dose optimization techniques: automated exposure control mA and/or kV adjustment per patient size (includes targeted exams where dose is matched to clinical indication) or iterative reconstruction. ATED BY: DANETTE RUSSELL MD DICTATED DATE/TIME: 08/10/252222 SIGNED BY: DANETTE RUSSELL MD SIGNED DATE/TIME: 08/10/252222 CC: Time of 1ST Reevaluation: 21:30 Reevaluation 1ST: Unchanged Patient Education/Counseling: Need For Follow Up, Other (Need for admission) Family Education/Counseling: No Family Present SEPSIS Sepsis Screen Date sepsis recognized/suspect: Aug 10, 2025 Time Sepsis recognized/suspect: 1950 Recent Procedure: No On Antibiotic Therapy: No Respiratory Rate >20: No Heart Rate >90: Yes Temp<36 C (96.8 F) or >38.3 C: No SBP <90 or MAP <65 mmHG: No New Acute Mental Status Change: No Is the patient on CPAP, BIPAP,: No Physician Orders Stool Occult Blood (08/10/25 19:54) Ct Ab Pel With Iv Con Only (08/10/25 21:53) Vital Signs Date Time Temp Pulse Resp B/P (MAP) Pulse Ox O2 Delivery O2 Flow Rate FiO2 08/10/25 21:16 120 18 118/94 08/10/25 21:11 120 22 118/97 (104) 98 08/10/25 19:43 99.0 114 20 132/75 98 99.0 Laboratory Tests Test 08/10/25 20:05 Lactic Acid Level 1.6 mmol/L (0.4-2.0) White Blood Count 16.5 10^3/uL (4.4-10.8) H Medications Medications Dose Ordered Sig/Karen Route Start Time Stop Time Status Last Admin Dose Admin Metoclopramide HCl 10 mg ONCE ONCE IV 08/10/25 21:00 08/10/25 21:01 DC 08/10/25 20:59 Morphine Sulfate 2 mg ONCE ONCE IV 08/10/25 21:15 08/10/25 21:16 DC 08/10/25 21:16 Pantoprazole Sodium 40 mg ONCE ONCE IV 08/10/25 20:00 08/10/25 20:01 DC 08/10/25 20:56 Departure 1 Departure Time of Disposition: 23:14 Impression: Primary Impression: Abdominal pain Additional Impression: Hematemesis Disposition: ADMITTED INPATIENT Condition: Stable Comments MDM: 25-year-old female with persistent nausea and vomiting and abdominal pain despite treatment in the emergency department. Patient admitted to hospitalist service for further treatment, evaluation and monitoring. Extensive evaluation was performed in attempt to identify or rule out: (See differential diagnosis section) The following tests were ordered, and results were reviewed by me and discussed with patient: (See diagnostic results section) Decision regarding hospitalization or escalation of hospital level of care: Risk and benefits of admission for further treatment of patient's condition was considered. Due to patient's current clinical condition, high risk of decline and poor outcome if discharged and need for further inpatient management and monitoring, patient will be admitted to the hospital. Drug therapy requiring intensive monitoring for toxicity: N/A Parenteral controlled substances: IV morphine Critical Care Note Critical Care Time?: No Stability Stability form required: No Heart Score Heart Score: Heart Score Response (Comments) Value History N/A 0 EKG N/A 0 Age N/A 0 Risk Factors N/A 0 Troponin N/A 0 Total 0 I personally scribed for KRISTINA LEIGH MD ([email or web address]) on 08/10/25 at 21:05. Electronically submitted by Wanda Gutiérrez ([email or web address]). I personally scribed for KRISTINA LEIGH MD ([email or web address]) on 08/10/25 at 22:49. Electronically submitted by Wanda Gutiérrez ([email or web address]). KRISTINA LEIGH MD Aug 10, 2025 21:02
[2025-08-10 21:06] LABS: Urine Protein, UAD 2+ (Negative)
[2025-08-10] MEDS: MORPHINE SULFATE INJ 2 MG/ml SYRG IV ONE (21:16)
[2025-08-10] MEDS: IOHEXOL 350 MG/ML 100ML IJ ONE (22:11)
--- NOTE | 2025-08-10 22:26 | DVH ---
Exam: CT CT AB PEL WITH IV CON ONLY History: Severe abdominal pain, nausea, vomiting, hematemesis Comparison Study: CT CT AB PEL WITH IV CON ONLY on DOS: 11/27/24 Technique: Multidetector spiral CT of the abdomen was performed from lung bases to pubic symphysis. I maging was performed with IV contrast. Axial, coronal and sagittal multiplanar reformats were obtaine d from the axial data set by the technologist. Radiation Dose : 1. Abdomen/Pelvis: CTDIvol 10.29 mGy, DLP 586.02 mGy*cm. Findings: Lower Chest: No acute findings. Liver: Diffuse hypoenhancement relative to the spleen. Gallbladder and Biliary Tree: Unremarkable Pancreas: Normal. Spleen: Normal. Adrenal Glands: Normal. Kidneys/Ureters: Normal. Bladder: Grossly unremarkable for degree of distention. Pelvic Organs: Unremarkable. Expected IUD positioning. Bowel: Normal caliber without wall thickening. Normal appendix. Vasculature: Unremarkable. Lymphadenopathy: No obvious adenopathy. Peritoneum: Physiologic volume of pelvic ascites. No free air or fluid collection. Abdominal Wall: No significant hernia. Musculoskeletal: No acute findings. IMPRESSION: No acute abdominopelvic abnormality. Radiation optimization: All CT scans at this facility use at least one of these dose optimization janis hniques: automated exposure control mA and/or kV adjustment per patient size (includes targeted exam s where dose is matched to clinical indication) or iterative reconstruction.
[2025-08-10] MEDS ORDERED: ACETAMINOPHEN 325 MG TAB PO PRN (23:45)
[2025-08-11] VITALS (8 sets, daily range): BP systolic 123–134; BP diastolic 63–92; PULSE 57–82; RESP 16–20; TEMP 98.2–99; O2SAT 98–100
[2025-08-11] MEDS: ONDANSETRON HCL 4 MG/2 ML VIAL IV PRN (00:16)
[2025-08-11] MEDS: HYDROcodone-ACET 5/325MG TAB PO PRN (01:12)
--- NOTE | 2025-08-11 01:12 | DVHHP2 ---
History of Present Illness Reason for Visit: GI bleed History of Present Illness 25-year-old female presents for evaluation of GI bleed. Patient reports a one- week history of nausea and vomiting. She states the 1st three days she was vomiting abundio blood intermittently. She reports that over the past couple of days she has been vomiting dark colored emesis. Reports constipation over the past five days. No fever or chills. Reports mild lower abdominal tenderness. No other acute complaints reported. Past Medical History Denies Past Surgical History Denies Family History Noncontributory Smoke: No ALCOHOL: none Drugs: None Lives: with Family Review of Systems Review of Systems Review of systems are currently negative otherwise addressed in HPI. Allergies: Coded Allergies: NO KNOWN ALLERGIES (Unverified , 11/26/24) Medications Current Medications Medications Dose Ordered Sig/Karen Route Start Time Stop Time Status Last Admin Dose Admin Pantoprazole Sodium 40 mg DAILY IV 08/11/25 10:00 Ondansetron HCl 4 mg Q4HP PRN IV 08/10/25 23:30 08/11/25 00:16 4 MG Acetaminophen/ Hydrocodone Bitart 1 tab Q4HP PRN PO 08/10/25 23:45 Acetaminophen 650 mg Q6HP PRN PO 08/10/25 23:45 Morphine Sulfate 2 mg Q6HPRN PRN IV 08/10/25 23:45 Exam Vital Signs Vital Signs Date Time Temp Pulse Resp B/P (MAP) Pulse Ox O2 Delivery O2 Flow Rate FiO2 08/10/25 21:16 120 18 118/94 08/10/25 21:11 98 08/10/25 19:43 99.0 99.0 Exam Gen: 25-year-old female in mild distress Skin: Warm, dry, normal color and texture, no rash. HEENT: Normocephalic atraumatic, mucous membranes moist and pink. Neck: Cervical and supraclavicular nodes normal without enlargement, trachea is midline, thyroid gland is normal without masses. Pulmonary: Clear to auscultation and percussion bilaterally. Cardiac: Regular rate and rhythm. No murmur Abdomen: Soft, nontender, nondistended, bowel sounds present all 4 quadrants, no guarding, no rigidity, no organomegaly. Extremities: No cyanosis, clubbing, no edema Neuro: Cranial nerves II through XII grossly intact, normal affect and speech, no focal motor deficits. Labs/Xrays ORDERING PHYSICIAN: KRISTINA LEIGH MD PROCEDURE(s): ABPLIV - CT AB PEL WITH IV CON ONLY REASON: Severe abdominal pain, nausea, vomiting, hematemesis ORDER NUMBER(s): [id number], ACCESSION NUMBER(s): [id number] Exam: CT CT AB PEL WITH IV CON ONLY History: Severe abdominal pain, nausea, vomiting, hematemesis Comparison Study: CT CT AB PEL WITH IV CON ONLY on DOS: 11/27/24 Technique: Multidetector spiral CT of the abdomen was performed from lung bases to pubic symphysis. Imaging was performed with IV contrast. Axial, coronal and sagittal multiplanar reformats were obtained from the axial data set by the technologist. Radiation Dose : 1. Abdomen/Pelvis: CTDIvol 10.29 mGy, DLP 586.02 mGy*cm. Findings: Lower Chest: No acute findings. Liver: Diffuse hypoenhancement relative to the spleen. Gallbladder and Biliary Tree: Unremarkable Pancreas: Normal. Spleen: Normal. Adrenal Glands: Normal. Kidneys/Ureters: Normal. Bladder: Grossly unremarkable for degree of distention. Pelvic Organs: Unremarkable. Expected IUD positioning. Bowel: Normal caliber without wall thickening. Normal appendix. Vasculature: Unremarkable. Lymphadenopathy: No obvious adenopathy. Peritoneum: Physiologic volume of pelvic ascites. No free air or fluid collection. Abdominal Wall: No significant hernia. Musculoskeletal: No acute findings. IMPRESSION: No acute abdominopelvic abnormality. Radiation optimization: All CT scans at this facility use at least one of these dose optimization techniques: automated exposure control mA and/or kV adjustment per patient size (includes targeted exams where dose is matched to clinical indication) or iterative reconstruction. Labs Test 08/10/25 20:15 08/10/25 20:05 Range/Units Urine Color Yellow Yellow Urine Clarity Clear Clear Urine pH 6.5 5.0-9.0 Urine Specific [place] 1.037 H 1.001-1.035 Urine Protein 2+ H Negative Urine Ketones 4+ H Negative Urine Blood Negative Negative /uL Urine Nitrite Negative Negative Urine Bilirubin Negative Negative Urine Urobilinogen Normal Negative mg/dL Urine Leukocyte Esterase Negative Negative /uL Urine RBC 4 0 - 4 /hpf Urine Microscopic WBC < 1 0-5 /HPF Urine Squamous Epithelial Cells Mod <5 /hpf Urine Bacteria Few H None Seen /hpf Urine Hyaline Casts Few 0 - 2 /lpf Urine Mucus Few None Seen Urine Glucose Normal Normal mg/dL Urine Test Negative Negative White Blood Count 16.5 H 4.4-10.8 10^3/uL Red Blood Count 5.09 4.0-5.20 10^6/uL Hemoglobin 14.9 12.2-16.2 g/dL Hematocrit 42.7 36.0-46.0 % Mean Corpuscular Volume 83.9 80.0-100.0 fL Mean Corpuscular Hemoglobin 29.3 28.0-32.0 pg Mean Corpuscular Hemoglobin Concent 34.9 32.0-36.0 g/dL Red Cell Distribution Width 13.1 11.8-14.3 % Platelet Count 399 140-450 10^3/uL Mean Platelet Volume 8.5 6.9-10.8 fL Neutrophils (%) (Auto) 84.3 H 37.0-80.0 % Lymphocytes (%) (Auto) 8.6 L 10.0-50.0 % Monocytes (%) (Auto) 6.9 0.0-12.0 % Eosinophils (%) (Auto) 0.0 0.0-7.0 % Basophils (%) (Auto) 0.2 0.0-2.0 % Neutrophils # (Auto) 13.9 H 1.6-8.6 10 ^3/uL Lymphocytes # (Auto) 1.4 0.4-5.4 10 ^3/uL Monocytes # (Auto) 1.1 0-1.3 10 ^3/uL Eosinophils # (Auto) 0 0-0.8 10 ^3/uL Basophils # (Auto) 0 0-0.2 10 ^3/uL Nucleated Red Blood Cells 0.0 % Sodium Level 137 136-145 mmol/L Potassium Level 3.0 L 3.5-5.1 mmol/L Chloride Level 94 L 98-107 mmol/L Carbon Dioxide Level 27 20-31 mmol/L Anion Gap 16 H 5-15 Blood Urea Nitrogen 11 9-23 mg/dL Creatinine 0.84 0.550-1.02 mg/dL Glomerular Filtration Rate Calc 99 >90 mL/min BUN/Creatinine Ratio 13.1 10.0-20.0 Serum Glucose 92 74-106 mg/dL Lactic Acid Level 1.6 0.4-2.0 mmol/L Calcium Level 10.4 8.7-10.4 mg/dL Total Bilirubin 1.0 0.2-1.0 mg/dL Aspartate Amino Transferase (AST) 14 13-40 U/L Alanine Aminotransferase (ALT) 36 7-40 U/L Alkaline Phosphatase 89 46-116 U/L Total Protein 8.7 H 5.7-8.2 g/dL Albumin 5.4 H 3.2-4.8 g/dL Lipase 40 12-53 U/L SEPSIS Sepsis Screen Date sepsis recognized/suspect: Aug 10, 2025 Time Sepsis recognized/suspect: 2119 Recent Procedure: No On Antibiotic Therapy: No Respiratory Rate >20: No Heart Rate >90: No Temp<36 C (96.8 F) or >38.3 C: No SBP <90 or MAP <65 mmHG: No New Acute Mental Status Change: No Is the patient on CPAP, BIPAP,: No Physician Orders Stool Occult Blood (08/10/25 19:54) Ct Ab Pel With Iv Con Only (08/10/25 21:53) Gastric Occult Blood (08/10/25 23:21) * [facility] [employer]ron (08/10/25 23:21) Pantoprazole (Protonix) (08/11/25 10:00) Npo Except For Medications (08/10/25 23:21) Basic Metabolic Panel (08/11/25 04:00) Admit (08/10/25 23:21) Ondansetron Hcl (Zofran) (08/10/25 23:30) Complete Blood Count (08/11/25 04:00) Condition: Stable (08/10/25 23:21) Bedrest With Bathroom Privileg (08/10/25 23:21) Sodium Chloride 0.9% (08/10/25 23:30) Hydrocodone-Acet 5/325mg Tab ([place] 5/32 (08/10/25 23:45) Acetaminophen Tablet (Tylenol Tablet) (08/10/25 23:45) Morphine Sulfate Injection (08/10/25 23:45) PTPTT (08/11/25 01:07) Type And Screen (08/11/25 01:07) Vital Signs Date Time Temp Pulse Resp B/P (MAP) Pulse Ox O2 Delivery O2 Flow Rate FiO2 08/10/25 21:16 120 18 118/94 08/10/25 21:11 120 22 118/97 (104) 98 08/10/25 19:43 99.0 114 20 132/75 98 99.0 Laboratory Tests Test 08/10/25 20:05 Lactic Acid Level 1.6 mmol/L (0.4-2.0) White Blood Count 16.5 10^3/uL (4.4-10.8) H Medications Medications Dose Ordered Sig/Karen Route Start Time Stop Time Status Last Admin Dose Admin Metoclopramide HCl 10 mg ONCE ONCE IV 08/10/25 21:00 08/10/25 21:01 DC 08/10/25 20:59 10 MG Morphine Sulfate 2 mg ONCE ONCE IV 08/10/25 21:15 08/10/25 21:16 DC 08/10/25 21:16 2 MG Ondansetron HCl 4 mg Q4HP PRN IV 08/10/25 23:30 08/11/25 00:16 4 MG Pantoprazole Sodium 40 mg ONCE ONCE IV 08/10/25 20:00 08/10/25 20:01 DC 08/10/25 20:56 40 MG Potassium Chloride 40 meq ONCE ONCE PO 08/10/25 23:30 08/10/25 23:31 DC 08/10/25 00:05 40 MEQ Sodium Chloride 1,000 ml @ 100 mls/hr Q10H ONCE IV 08/10/25 23:30 08/11/25 09:29 08/10/25 00:05 100 MLS/HR Assessment/Plan Assessment/Plan Assessment ? GI bleed Leukocytosis Hypokalemia Plan Admit the patient to Med surge to the hospitalist NPO except medications Replete electrolytes GI consultation Maintenance IV fluids Pain management Continue treatment per orders. Plan discussed with: Patient My Orders Orders - GUILLERMO SARGENT Procedure Category Date Status Time Gastric Occult Blood LAB 08/10/25 Logged 23:21 * [facility] [employer] CONS 08/10/25 Transmitted 23:21 Pantoprazole PHA 08/11/25 In Process (Protonix) 10:00 Npo Except For NIC 08/10/25 In Process Medications 23:21 Basic Metabolic Panel LAB 08/11/25 Logged 04:00 Admit ADMIT 08/10/25 Transmitted 23:21 Ondansetron Hcl PHA 08/10/25 In Process (Zofran) 23:30 Complete Blood Count LAB 08/11/25 Logged 04:00 Condition: Stable NIC 08/10/25 In Process 23:21 Bedrest With Bathroom NIC 08/10/25 In Process Privileg 23:21 Sodium Chloride 0.9% PHA 08/10/25 In Process 23:30 Hydrocodone-Acet PHA 08/10/25 In Process 5/325mg Tab ([place] 23:45 Acetaminophen Tablet PHA 08/10/25 In Process (Tylenol Tablet) 23:45 Morphine Sulfate PHA 08/10/25 In Process Injection 23:45 PTPTT LAB 08/11/25 Transmitted 01:07 Type And Screen BBK 08/11/25 Transmitted 01:07 Date of Service: Aug 10, 2025 Billing Provider: GUILLERMO SARGENT Common Visit Codes: [id number] INP/OBS CARE (HIGH) GUILLERMO SARGENT Aug 11, 2025 01:11
[2025-08-11 02:01] LABS: INR 1.08 (0.9-1.15); Partial Thromboplastin Time 29.3 SEC (24.5-34.5); Prothrombin Time 11.4 sec (9.3-11.8)
[2025-08-11] MEDS ORDERED: ACET-1304 PO (04:14)
[2025-08-11 05:58] LABS: Hematocrit 39.8 % (36.0-46.0); Hemoglobin 14.1 g/dL (12.2-16.2); Mean Corpuscular Hemoglobin 29.8 pg (28.0-32.0); Mean Corpuscular Volume 84.2 fL (80.0-100.0); Nucleated Red Blood Cells % 0.1 %
[2025-08-11 06:06] LABS: Chloride 98 mmol/L (98-107); Sodium 139 mmol/L (136-145)
[2025-08-11 06:07] LABS: Anion Gap 14 (5-15); Carbon Dioxide 27 mmol/L (20-31)
[2025-08-11 06:08] LABS: Calcium 9.6 mg/dL (8.7-10.4)
[2025-08-11 06:10] LABS: Potassium 3.0 mmol/L (3.5-5.1)
[2025-08-11 06:12] LABS: BUN/Creatinine Ratio 13.2 (10.0-20.0); Blood Urea Nitrogen 9 mg/dL (9-23); Glucose 90 mg/dL (74-106)
[2025-08-11] MEDS: METOCLOPRAMIDE HCL 5MG/ml INJ 2ml VIAL IV ONE (08:45)
[2025-08-11] MEDS: PANTOPRAZOLE 40 MG/10 ML VIAL INJ IV SCH (10:01)
--- NOTE | 2025-08-11 10:18 | DVH ---
Technique: Real-time ultrasound images through the pelvis using a transabdominal transducer. Indication: r/o ovarian torsion and iud placement Comparison: US PELVIC on DOS: 11/29/24 Findings: The uterus measures 7. cm. The endometrial stripe measures 11 mm. There are no focal masses. There is no abnormal flow in the endometrium. Intrauterine device extending to the fundal region. Right ovary measures 3.5 x 2.4 x 2.1 cm. Normal flow on color doppler images. No focal masses are vazquez ntified. Left ovary measures 4.1 x 2 x 2.1 cm. Normal flow on color doppler images. No focal masses are ident ified. There is no significant free fluid in the pelvis. Impression: Endometrial thickness 11 mm. Intrauterine device extending to the fundal region.
[2025-08-11] MEDS ORDERED: POLYETHYLENE GLYCOL 17 GM PWDR PO PRN (11:45)
--- NOTE | 2025-08-11 12:11 | DVH ---
INDICATION: appendicitis TECHNIQUE: Graded compression technique along with Multiple real-time sonographic images were obtain ed for evaluation of the right lower quadrant. FINDINGS: The appendix was not visualized. No free fluid or lymph nodes are seen on this exam. IMPRESSION: 1.Nonvisualization of the appendix, thus cannot exclude appendicitis.
[2025-08-11] MEDS: POTASSIUM EFFERVESENT TAB 25 MEQ PO ONE (12:19)
[2025-08-11] MEDS: SUCRALFATE 1 GM/10 ML ORAL SUSP PO ONE (13:49)
[2025-08-11] MEDS: POLYETHYLENE GLYCOL 17 GM PWDR PO ONE (13:50)
[2025-08-11] MEDS: METOCLOPRAMIDE HCL 5MG/ml INJ 2ml VIAL IV PRN (13:50)
[2025-08-11] MEDS: MORPHINE SULFATE INJ 2 MG/ml SYRG IV PRN (14:32)
[2025-08-11] MEDS: POTASSIUM CHL 20MEQ/100ML 100 ML IV SCH (14:49)
[2025-08-11] MEDS: SODIUM CHLORIDE 0.9% 1,000 ML IV SCH (18:31)
[2025-08-11] MEDS: SUCRALFATE 1 GM/10 ML ORAL SUSP PO SCH (21:41)
[2025-08-11] MEDS: SENNA 8.6 MG TAB PO SCH (21:41)
[2025-08-12] VITALS (8 sets, daily range): BP systolic 115–136; BP diastolic 72–89; PULSE 60–98; RESP 14–19; TEMP 98.1–99.4; O2SAT 96–100
[2025-08-12 06:01] LABS: Hematocrit 39.0 % (36.0-46.0); Hemoglobin 13.5 g/dL (12.2-16.2); Mean Corpuscular Hemoglobin 29.2 pg (28.0-32.0); Mean Corpuscular Volume 84.3 fL (80.0-100.0); Nucleated Red Blood Cells % 0.1 %
[2025-08-12 06:10] LABS: Anion Gap 11 (5-15); Carbon Dioxide 26 mmol/L (20-31); Potassium 3.5 mmol/L (3.5-5.1)
[2025-08-12 06:12] LABS: Calcium 9.2 mg/dL (8.7-10.4)
[2025-08-12 06:16] LABS: Glucose 84 mg/dL (74-106)
[2025-08-12 06:17] LABS: BUN/Creatinine Ratio 14.6 (10.0-20.0)
[2025-08-12 06:22] LABS: Blood Urea Nitrogen 7 mg/dL (9-23); Chloride 97 mmol/L (98-107); Sodium 134 mmol/L (136-145)
[2025-08-12] MEDS ORDERED: HYDROmorphone HCL 2 MG/ML VL/or syr IV ONE (09:00)
--- NOTE | 2025-08-12 11:09 | DVHCONRES ---
Date Seen: Aug 11, 2025 Resident Creating Document: JHAJJ,SARPUNEET RESIDENT Referring Physician JOSE Grey Reason for Consultation GI Bleed History of Present Illness Patient is a 25-year-old female with a significant medical history presented to the hospital with a chief complaint of abdominal pain for 1 week. Patient reported that she was having lower abdominal pain and also reported of constipat ion with the last week. Patient also reported of nausea and vomiting for the last week as well and reported that she noticed blood in the vomitus in the 1st 3 days. Patient denied any recent sick contacts, recent travel, fever, chills, weight loss. Denies to have blood in the vomitus or blood in stools before. Patient reported to be admitted to the hospital earlier this year where she was found to have right ovarian cyst. Past Medical History Right ovarian cyst Past Surgical History None reported Family History: FH: heart disease G8 MOTHER Family History Not significant Social History Denies smoking, alcohol, drug use Allergies: Coded Allergies: NO KNOWN ALLERGIES (Unverified , 11/26/24) Home Meds Active Scripts Ibuprofen Micronized (MOTRIN TABLET) 600 Mg Tb, 600 MG PO TID PRN, #40 TAB *Black box warning-NSAIDS can increase risk of [place] & hypertension, GI irritation, ulceration, bleed, perferation. Do not use post cardiac surgery. Use short duration/lowest effective dose. Prov:SON CRAWLEY MD 12/19/24 Metronidazole (Flagyl) 500 Mg Tab, 500 MG PO BID for 14 Days, #28 TAB Prov:LE SWANSON DO 11/29/24 Doxycycline Monohydrate (Doxycycline Monohydrate) 100 Mg Tab, 100 MG PO BID for 14 Days, #28 TAB Prov:LE SWANSON DO 11/29/24 Levofloxacin Hemihydrate (LEVAQUIN 500 MG) 500 Mg Tab, 1 TAB PO DAILY, #7 TAB Prov:NASIMA HAYNES MD 11/29/24 Reported Medications Acetaminophen (Tylenol Extra Strength) 500 Mg Tab, 500 MG PO DAILY, TAB 08/11/25 Current Medications Current Medications Medications (Trade) Dose Ordered Sig/Karen Route PRN Reason Start Time Stop Time Status Last Admin Pantoprazole Sodium (Protonix) 40 mg DAILY IV 08/11/25 10:00 08/11/25 10:01 Ondansetron HCl (Zofran) 4 mg Q4HP PRN IV NAUSEA / VOMITING 08/10/25 23:30 08/11/25 04:16 Acetaminophen/ Hydrocodone Bitart ([place] 5/325MG Tab) 1 tab Q4HP PRN PO MODERATE PAIN (4-6 PAIN SCALE) 08/10/25 23:45 08/11/25 06:55 Acetaminophen (Tylenol Tablet) 650 mg Q6HP PRN PO PAIN SCALE 1-3 OR TEMP>100.4 08/10/25 23:45 Morphine Sulfate 2 mg Q6HPRN PRN IV SEVERE PAIN (7-10 PAIN SCALE) 08/10/25 23:45 Ceftriaxone Sodium 50 ml @ 100 mls/hr DAILY@09 IV 08/11/25 09:00 08/11/25 08:45 Potassium Chloride 100 ml @ 50 mls/hr Q2H IV 08/11/25 10:30 08/11/25 14:29 UNV Review of Systems Patient seen and examined with the bedside Does not complain of any abdominal pain or nausea or at Reports she has swelling of the She went the restroom passed flatus but no bowel movements Vital Signs Vital Signs Date Time Temp Pulse Resp B/P (MAP) Pulse Ox O2 Delivery O2 Flow Rate FiO2 08/11/25 08:50 98.9 68 20 130/91 (104) 99 98.9 08/11/25 08:10 Room Air* 0 21 Physical Exam Gen - no pallor, no scleral icterus Skin - Patients skin is warm and dry. HEENT - normocephalic, atraumatic, dry mucous membranes. Neck - supple, no lymphadenopathy Pulmonary - B/L clear breath sounds cardiovascular - regular S1,S2 heard GI - soft nontender abdomen. Bowel sounds normoactive. Neurological - Patient is alert and oriented x4. No motor or sensory weakness Labs/Diagnostic Data Labs Test 08/11/25 05:12 08/11/25 01:25 08/10/25 20:15 08/10/25 20:05 Range/Units White Blood Count 15.8 H 4.4-10.8 10^3/uL Red Blood Count 4.72 4.0-5.20 10^6/uL Hemoglobin 14.1 12.2-16.2 g/dL Hematocrit 39.8 36.0-46.0 % Mean Corpuscular Volume 84.2 80.0-100.0 fL Mean Corpuscular Hemoglobin 29.8 28.0-32.0 pg Mean Corpuscular Hemoglobin Concent 35.4 32.0-36.0 g/dL Red Cell Distribution Width 13.5 11.8-14.3 % Platelet Count 342 140-450 10^3/uL Mean Platelet Volume 8.7 6.9-10.8 fL Neutrophils (%) (Auto) 79.7 37.0-80.0 % Lymphocytes (%) (Auto) 11.4 10.0-50.0 % Monocytes (%) (Auto) 8.8 0.0-12.0 % Eosinophils (%) (Auto) 0.0 0.0-7.0 % Basophils (%) (Auto) 0.1 0.0-2.0 % Neutrophils # (Auto) 12.6 H 1.6-8.6 10 ^3/uL Lymphocytes # (Auto) 1.8 0.4-5.4 10 ^3/uL Monocytes # (Auto) 1.4 H 0-1.3 10 ^3/uL Eosinophils # (Auto) 0 0-0.8 10 ^3/uL Basophils # (Auto) 0 0-0.2 10 ^3/uL Nucleated Red Blood Cells 0.1 % Sodium Level 139 136-145 mmol/L Potassium Level 3.0 L 3.5-5.1 mmol/L Chloride Level 98 98-107 mmol/L Carbon Dioxide Level 27 20-31 mmol/L Anion Gap 14 5-15 Blood Urea Nitrogen 9 9-23 mg/dL Creatinine 0.68 0.550-1.02 mg/dL Glomerular Filtration Rate Calc 125 >90 mL/min BUN/Creatinine Ratio 13.2 10.0-20.0 Serum Glucose 90 74-106 mg/dL Calcium Level 9.6 8.7-10.4 mg/dL Magnesium Level 2.1 1.6-2.6 mg/dL Prothrombin Time 11.4 9.3-11.8 sec Prothrombin Time INR 1.08 0.9-1.15 Activated Partial Thromboplast Time 29.3 24.5-34.5 SEC Urine Color Yellow Yellow Urine Clarity Clear Clear Urine pH 6.5 5.0-9.0 Urine Specific [place] 1.037 H 1.001-1.035 Urine Protein 2+ H Negative Urine Ketones 4+ H Negative Urine Blood Negative Negative /uL Urine Nitrite Negative Negative Urine Bilirubin Negative Negative Urine Urobilinogen Normal Negative mg/dL Urine Leukocyte Esterase Negative Negative /uL Urine RBC 4 0 - 4 /hpf Urine Microscopic WBC < 1 0-5 /HPF Urine Squamous Epithelial Cells Mod <5 /hpf Urine Bacteria Few H None Seen /hpf Urine Hyaline Casts Few 0 - 2 /lpf Urine Mucus Few None Seen Urine Glucose Normal Normal mg/dL Urine Test Negative Negative Lactic Acid Level 1.6 0.4-2.0 mmol/L Total Bilirubin 1.0 0.2-1.0 mg/dL Aspartate Amino Transferase (AST) 14 13-40 U/L Alanine Aminotransferase (ALT) 36 7-40 U/L Alkaline Phosphatase 89 46-116 U/L Total Protein 8.7 H 5.7-8.2 g/dL Albumin 5.4 H 3.2-4.8 g/dL Lipase 40 12-53 U/L Assessment Intractable nausea vomiting Hematemesis Possible PUD Constipation Sirs Dehydration Plan - patient is planned for EGD tomorrow - Protonix IV daily - Carafate 1 g p.o. b.i.d. - Reglan 5 mg q.8 hours p.r.n. for nausea - MiraLax and senna for constipation - recommend IV fluids since the patient seemed dehydrated Plan discussed with Dr. Leary Plan discussed with: Patient, Other (ESTELA Ibarra) ANALILIA MARIN RESIDENT Aug 11, 2025 11:45
--- NOTE | 2025-08-12 11:21 | DVHPNRES ---
Progress Note Date Seen: Aug 11, 2025 Resident Creating Document: RONY MARTÍNEZ RESIDENT Medical Necessity Reason Pt with a Central, PICC or Fol: No Subjective Review of Systems Lise Raines is a 25-year old female who presented to the ED with the complaint of nausea and vomiting since 5 days. The patient mentions she noticed bright red blood in the vomitus the 1st 2-3 days and it became more dark, blood- tinged vomitus in the last 2 days. Patient also mentions having lower abdominal pain, rated 6/10 in intensity since then. She also reports to be having constipation over the last 5 days. She reported to have had fever recorded as 100 degrees along with chills and cold sweats 5 days back. Patient mentions having similar episodes of nausea and nonbloody tinged vomitus 6 months back, and she was diagnosed with a right ovarian cyst. Abdominal CT was done which was unremarkable. Ultrasound of the appendix was done which could not visualize the appendix but appendicitis could not be excluded. GI scheduled patient for EGD tomorrow. Past medical history: Ovarian cyst Past surgical history: Denies Social & Personal history: Lives at home with the family, denies smoking, alcohol and drugs Allergies: No known allergies Patient seen and examined at bedside. Patient is alert and oriented to time, place person and responding to all questions. Eyes: No Pain, No Vision change, No Conjunctivae inflammation, No Eyelid inflammation, No Redness ENT: No Ear pain, No Ear discharge, No Nose pain, No Nose discharge, No Nose congestion, No Mouth pain, No Mouth swelling, No Throat pain, No Throat swelling Cardiovascular: No Chest Pain, No Palpitations, No Orthopnea, No Paroxysmal No Dyspnea, No Edema, No Lt Headedness Respiratory: No Cough, No Dry, No Shortness of breath, No SOB with exertion, No Wheezing, No Hemoptysis, No Pleuritic Pain, No Sputum Gastrointestinal: Nausea, Vomiting, Abdominal Pain, No Diarrhea, No Constipation, No Melena, No Hematochezia Genitourinary: No Dysuria, No Frequency, No Incontinence, No Hematuria, No Retention Objective vital signs Vital Sign Date Time Temp Pulse Resp B/P (MAP) Pulse Ox O2 Delivery O2 Flow Rate FiO2 08/11/25 16:57 98.2 82 16 127/92 (104) 98 98.2 08/11/25 08:10 Room Air* 0 21 Total Intake and Output 08/10/25 08/10/25 08/11/25 15:00 23:00 07:00 Output Total 150 ml Balance -150 ml medications Current Medications Medications Dose Ordered Sig/Karen Route Start Time Stop Time Status Last Admin Dose Admin Pantoprazole Sodium 40 mg DAILY IV 08/11/25 10:00 08/11/25 10:01 40 MG Ondansetron HCl 4 mg Q4HP PRN IV 08/10/25 23:30 08/11/25 04:16 4 MG Acetaminophen/ Hydrocodone Bitart 1 tab Q4HP PRN PO 08/10/25 23:45 08/11/25 06:55 1 TAB Acetaminophen 650 mg Q6HP PRN PO 08/10/25 23:45 Morphine Sulfate 2 mg Q6HPRN PRN IV 08/10/25 23:45 08/11/25 14:32 2 MG Ceftriaxone Sodium 50 ml @ 100 mls/hr DAILY@09 IV 08/11/25 09:00 08/11/25 08:45 100 MLS/HR Sucralfate 1 gm BID@0600,2200 PO 08/11/25 22:00 Polyethylene Glycol 17 gm DAILYPRN PRN PO 08/11/25 11:45 Sennosides 8.6 mg HS PO 08/11/25 22:00 Metoclopramide HCl 5 mg Q8HPRN PRN IV 08/11/25 11:45 08/11/25 13:50 5 MG Examination General Appearance: Cooperative. Well developed. Well nourished. NAD Head Exam: Normal inspection Neck Exam: Normal inspection. Non-tender. Normal alignment Pulmonary/Respiratory: Chest non-tender. Clear bilateral breath sounds, no crackles, no wheezing. Cardiovascular/Chest: Regular rate and rhythm. No murmurs. No JVD. Peripheral Pulses: 2+ Radial (R). 2+ Radial (L). 2+ Pedal (R). 2+ Pedal (L) Abdominal Exam: Normal bowel sounds. Soft. normal abdomen, no visible veins, t enderness in all quadrants,Right>left, No hepatospenomegaly. No masses Ankle Exam: Negative ankle edema Lower extremities: Negative lower extremity edema Neuro/Mental Status: A&O x4. Coherent. Thoughts/Psych: Normal thought pattern. Appropriate mood and affect. Good judgement and insight Skin Exam: Normal inspection. Normal color. Warm. Dry laboratory and microbiology Laboratory Tests 08/11/25 05:12 Test 08/11/25 05:12 Range/Units Serum Glucose 90 74-106 mg/dL Labs and/or images reviewed: Labs reviewed by me, Image(s) reviewed by me Problem List/Assessment/Plan Problem List/Assessment/Plan Acute GI bleed with hematemesis Acute intractable nausea, vomiting and abdominal pain Possible peptic ulcer disease Possible acute appendicitis -NPO -EGD scheduled on 08/12/25 -IV ceftriaxone 1 g daily -CT abdomen unremarkable -pelvic ultrasound unremarkable, endometrial stripe 11 mm -ultrasound appendix- not visualize the appendix, appendicitis can not be ruled out -surgical consult placed,pending evaluation Constipation -MiraLax powder and Senokot Hypokalemia, replenished PUD prophylaxis: Protonix IV daily DVT prophylaxis: Ambulatory Goals of care: Full code, discussed for 23 minutes Plan discussed with patient Plan discussed with Dr Porter Plan discussed with: Patient My Orders My Orders Orders - RONY MARTÍNEZ RESIDENT Procedure Category Date Status Time Right Lower Quad US 08/11/25 Resulted 11:26 Drug Screen LAB 08/11/25 Logged 11:33 * Surgical Consult CONS 08/11/25 Transmitted Dietary Evaluation Review Comments: Nutrition Recommendation: 1) Advance diet as medically feasible 2) Monitor NPO status, lab values, weight trend, and I/O Expected Outcomes/Goals: GI symptoms to improve Intake to meet >75% estimated needs Fu 2-3 days Date of Service: Aug 11, 2025 Billing Provider: SHAVON PORTER MD Common Visit Codes: [id number] INP/OBS CARE(HIGH) RONY MARTÍNEZ RESIDENT Aug 11, 2025 17:45 SHAVON PORTER MD Aug 11, 2025 22:44
--- NOTE | 2025-08-12 11:25 | DVHINCON2 ---
Consultation - Surgical Date Seen: Aug 11, 2025 Referring Physician Reason for Consultation Rule out appendicitis History of Present Illness History of Present Illness Ms. Raines is a 25-year-old female who presented to the hospital with 7 days of vomiting accompanied by lower abdominal pain. For the 1st 3 days of vomiting she was having bloody emesis, which has a resolved and now she is vomiting more bilious stuff. She has not been able to tolerate any diet at all. States that she has not eaten anything out of the ordinary or does not associate any food with the illness. Before this 7 days of vomiting started she had 2 weeks of diarrhea, states that she was having daily large liquid yellow bowel movements. She denies any blood in the bowel movements. Her last bowel movement was on Friday. She regularly has 2 daily bowel movements. Her regular bowel movements are solid and brown in color. Patient states that this has never happened to her before. Denies fevers, chills, changes in urinary habits. Patient denies any changes between constipation and diarrhea on herself. Patient denies any personal family history of GI malignancies, Crohn's disease, ulcerative colitis, perianal disease. Patient also states that approximately a year ago she had a similar episode of abdominal pain and vomiting without blood in the vomit and was diagnosed with ovarian cyst Past Medical/Surgical History Past Medical/Surgical History Past medical history denies Past surgical history denies Family and Social History Family and Social History No personal or family history of ulcerative colitis, IBS, GI malignancies ETOH/T Ob/drugs denies Allergies and medications Allergies: Coded Allergies: NO KNOWN ALLERGIES (Unverified , 11/26/24) Home Meds Active Scripts Ibuprofen Micronized (MOTRIN TABLET) 600 Mg Tb, 600 MG PO TID PRN, #40 TAB *Black box warning-NSAIDS can increase risk of OR & hypertension, GI irritation, ulceration, bleed, perferation. Do not use post cardiac surgery. Use short duration/lowest effective dose. Prov:SON CRAWLEY MD 12/19/24 Reported Medications Pantoprazole Sodium Sesquihydr (Pantoprazole Sodium) 40 Mg Tab, 1 TAB PO DAILY for 30 Days, #30 08/11/25 Acetaminophen (Tylenol Extra Strength) 500 Mg Tab, 500 MG PO DAILY, TAB 08/11/25 Review of systems Review of Systems: HEENT:Normal, CVS:Normal, RESPIRATORY:Normal, GI:Abnormal, :Normal, MSK:Normal, NEURO:Normal Examination Vital signs Vital Signs Date Time Temp Pulse Resp B/P (MAP) Pulse Ox O2 Delivery O2 Flow Rate FiO2 08/11/25 16:57 98.2 82 16 127/92 (104) 98 98.2 08/11/25 08:10 Room Air* 0 21 Medications Current Medications Medications (Trade) Dose Ordered Sig/Karen Route PRN Reason Start Time Stop Time Status Last Admin Pantoprazole Sodium (Protonix) 40 mg DAILY IV 08/11/25 10:00 08/11/25 10:01 Ondansetron HCl (Zofran) 4 mg Q4HP PRN IV NAUSEA / VOMITING 08/10/25 23:30 08/11/25 19:35 Acetaminophen/ Hydrocodone Bitart ([place] 5/325MG Tab) 1 tab Q4HP PRN PO MODERATE PAIN (4-6 PAIN SCALE) 08/10/25 23:45 08/11/25 19:35 Acetaminophen (Tylenol Tablet) 650 mg Q6HP PRN PO PAIN SCALE 1-3 OR TEMP>100.4 08/10/25 23:45 Morphine Sulfate 2 mg Q6HPRN PRN IV SEVERE PAIN (7-10 PAIN SCALE) 08/10/25 23:45 08/11/25 14:32 Ceftriaxone Sodium 50 ml @ 100 mls/hr DAILY@09 IV 08/11/25 09:00 08/11/25 08:45 Potassium Chloride 100 ml @ 50 mls/hr Q2H IV 08/11/25 10:30 08/11/25 14:29 DC 08/11/25 17:56 Sucralfate (Carafate Susp) 1 gm BID@0600,2200 PO 08/11/25 22:00 Polyethylene Glycol (Miralax 17GM Powder) 17 gm DAILYPRN PRN PO FOR CONSTIPATION 08/11/25 11:45 Sennosides (Senokot Tablet) 8.6 mg HS PO 08/11/25 22:00 Metoclopramide HCl (Reglan Injection) 5 mg Q8HPRN PRN IV NAUSEA / VOMITING 08/11/25 11:45 08/11/25 13:50 Sodium Chloride 1,000 ml @ 75 mls/hr [id number] IV 08/11/25 17:45 08/11/25 18:31 Laboratory Labs Test 08/11/25 05:12 08/11/25 01:25 08/10/25 20:15 08/10/25 20:05 Range/Units White Blood Count 15.8 H 4.4-10.8 10^3/uL Red Blood Count 4.72 4.0-5.20 10^6/uL Hemoglobin 14.1 12.2-16.2 g/dL Hematocrit 39.8 36.0-46.0 % Mean Corpuscular Volume 84.2 80.0-100.0 fL Mean Corpuscular Hemoglobin 29.8 28.0-32.0 pg Mean Corpuscular Hemoglobin Concent 35.4 32.0-36.0 g/dL Red Cell Distribution Width 13.5 11.8-14.3 % Platelet Count 342 140-450 10^3/uL Mean Platelet Volume 8.7 6.9-10.8 fL Neutrophils (%) (Auto) 79.7 37.0-80.0 % Lymphocytes (%) (Auto) 11.4 10.0-50.0 % Monocytes (%) (Auto) 8.8 0.0-12.0 % Eosinophils (%) (Auto) 0.0 0.0-7.0 % Basophils (%) (Auto) 0.1 0.0-2.0 % Neutrophils # (Auto) 12.6 H 1.6-8.6 10 ^3/uL Lymphocytes # (Auto) 1.8 0.4-5.4 10 ^3/uL Monocytes # (Auto) 1.4 H 0-1.3 10 ^3/uL Eosinophils # (Auto) 0 0-0.8 10 ^3/uL Basophils # (Auto) 0 0-0.2 10 ^3/uL Nucleated Red Blood Cells 0.1 % Sodium Level 139 136-145 mmol/L Potassium Level 3.0 L 3.5-5.1 mmol/L Chloride Level 98 98-107 mmol/L Carbon Dioxide Level 27 20-31 mmol/L Anion Gap 14 5-15 Blood Urea Nitrogen 9 9-23 mg/dL Creatinine 0.68 0.550-1.02 mg/dL Glomerular Filtration Rate Calc 125 >90 mL/min BUN/Creatinine Ratio 13.2 10.0-20.0 Serum Glucose 90 74-106 mg/dL Calcium Level 9.6 8.7-10.4 mg/dL Magnesium Level 2.1 1.6-2.6 mg/dL Prothrombin Time 11.4 9.3-11.8 sec Prothrombin Time INR 1.08 0.9-1.15 Activated Partial Thromboplast Time 29.3 24.5-34.5 SEC Urine Color Yellow Yellow Urine Clarity Clear Clear Urine pH 6.5 5.0-9.0 Urine Specific [place] 1.037 H 1.001-1.035 Urine Protein 2+ H Negative Urine Ketones 4+ H Negative Urine Blood Negative Negative /uL Urine Nitrite Negative Negative Urine Bilirubin Negative Negative Urine Urobilinogen Normal Negative mg/dL Urine Leukocyte Esterase Negative Negative /uL Urine RBC 4 0 - 4 /hpf Urine Microscopic WBC < 1 0-5 /HPF Urine Squamous Epithelial Cells Mod <5 /hpf Urine Bacteria Few H None Seen /hpf Urine Hyaline Casts Few 0 - 2 /lpf Urine Mucus Few None Seen Urine Glucose Normal Normal mg/dL Urine Test Negative Negative Lactic Acid Level 1.6 0.4-2.0 mmol/L Total Bilirubin 1.0 0.2-1.0 mg/dL Aspartate Amino Transferase (AST) 14 13-40 U/L Alanine Aminotransferase (ALT) 36 7-40 U/L Alkaline Phosphatase 89 46-116 U/L Total Protein 8.7 H 5.7-8.2 g/dL Albumin 5.4 H 3.2-4.8 g/dL Lipase 40 12-53 U/L Examination: GENERAL:Normal, HEENT:Normal (No icterus), ABDOMEN:Normal (Nondistended, no scars, no hernias, soft, depressible, lower abdominal tenderness, no rebound, no guarding) Problem List/Assessment/Plan Problems: (1) Hematemesis (2) Intractable nausea and vomiting (3) Abdominal pain Assessment and Plan Ms. Raines is a 25-year-old female who presents with lower abdominal pain, hematemesis for the last 7 days. Prior to the 7 days she had 2 weeks of diarrhea. I was consulted for the possibility of appendicitis. I reviewed the CT scan and appendix is clearly seen, not dilated and without surrounding inflammatory changes. CT scan was read as unremarkable but it clearly shows double wall sign in the terminal ileum which is a sign of inflammation, this patient has terminal ileitis likely as the cause of her lower abdominal pain. Terminal ileitis would not explain the hematemesis, but coupled together this could be Crohn's disease. Differential diagnosis for this patient, most likely Crohn's disease, enteritis, gastroenteritis, gastritis, erosive esophagitis, peptic ulcer disease. No surgical intervention indicated with this patient. She will benefit from endoscopy and colonoscopy. I also reviewed the pelvic ultrasound and abdominal ultrasound, both negative for appendicitis and for any other pelvic pathology as the cause of her symptoms. I will sign off please call with any questions or concerns. Plan discussed with Plan discussed with: Patient Visit Coding Surgery Date of Service if different f: Aug 11, 2025 Billing Provider: LAZARA CABRERA MD Surgery Visit Codes: [id number] - INP CONSULT <110 MIN LAZARA CABRERA MD Aug 11, 2025 20:00
[2025-08-12] MEDS: METOCLOPRAMIDE HCL 5MG/ml INJ 2ml VIAL IV SCH (11:37)
[2025-08-12] MEDS ORDERED: KETAMINE 50mg/ML 1ml syringe ONE (12:40)
[2025-08-12] MEDS ORDERED: fentaNYL CITRATE 100 MCG/2 ML VL ONE (12:40)
[2025-08-12] MEDS ORDERED: MIDAZOLAM HCL 2MG/2ML 2ml VIAL (1mg/ml) ONE (12:40)
[2025-08-12] MEDS ORDERED: LIDOCAINE 1% INJ PF 5ML AMP ONE (12:41)
[2025-08-12] MEDS ORDERED: ONDANSETRON HCL 4 MG/2 ML VIAL ONE (12:41)
[2025-08-12] MEDS ORDERED: SODIUM CHLORIDE LOCK 10 ML ONE (12:41)
[2025-08-12] MEDS ORDERED: PROPOFOL 10 MG/ML 20 ML IV ONE (12:41)
[2025-08-12] MEDS ORDERED: METOCLOPRAMIDE HCL 5MG/ml INJ 2ml VIAL IV PRN (13:00)
[2025-08-12] MEDS ORDERED: KETOROLAC TROMETH 30 MG/ML 1ML VIAL IV ONE (13:00)
[2025-08-12] MEDS ORDERED: HYDROmorphone HCL 2 MG/ML VL/or syr IV PRN ×2 (13:00)
[2025-08-12] MEDS ORDERED: MORPHINE SULFATE INJ 2 MG/ml SYRG IV PRN (13:00)
[2025-08-12] MEDS ORDERED: MORPHINE SULFATE 4 MG/ML SYR/VIAL IV PRN (13:00)
--- NOTE | 2025-08-12 13:07 | DVH ---
PROCEDURE: MRI MRI ABDOMEN W AND WO Indication: r/o abscess, acute intrabdominal pathology COMPARISON: 08/10/2025 TECHNIQUE: Multiplanar multisequence images of abdomen are obtained with and without contrast. FINDINGS: Kidneys demonstrate no hydronephrosis. Adrenal glands unremarkable. Spleen unremarkable. No evidence for cholelithiasis. Pancreas unremarkable. Liver unremarkable. Stomach partially distended. The imaged small bowel loops are normal in caliber. No rim enhancing flu id collection seen. IMPRESSION: No MRI evidence for acute abnormality of the abdomen.
[2025-08-12] MEDS: LIDOCAINE VISCOUS 2% 15ML UD ONE (13:40)
[2025-08-12] MEDS: GADOTERATE MEG 10 MMOL/20ml INJ (0.5MMOL/ml) IV ONE (14:18)
--- NOTE | 2025-08-12 14:42 | DVHOP2 ---
Operative Report DATE OF OPERATION: 08/12/25 PROCEDURE: Upper Endoscopy with biopsy. PREOPERATIVE INDICATION: The patient is a 25 -year-old female undergoing endoscopy for recurrent nausea vomiting and abdominal pain POSTOPERATIVE DIAGNOSES: 1. 2 cm sliding-type hiatal hernia with grade B erosive esophagitis 2. Minimal gastroduodenitis otherwise normal examination up to the 2nd and 3rd part of the duodenum PROCEDURE PERFORMED BY: Nahun Leary GI NURSE: Jovana SCOPE: Olympus videoendoscope. ASA CLASS: 2 PREOPERATIVE MEDICATIONS: Mac winston, Dr. Barker PROCEDURE IN DETAIL: After obtaining an informed consent, the patient was placed on left lateral decubitus position. The patient was then sedated with the above medications. A bite block was placed between her teeth. The endoscope was then passed through the oropharynx, into the esophagus, and through the stomach and pylorus up to the second and third part of the duodenum. The endoscope was then withdrawn. The 2nd and 3rd part of the duodenum were normal and duodenal bulb showed minimal duodenitis. Duodenal biopsies were obtained The pre-pyloric area antrum showed minimal gastritis. Gastric biopsies were obtained. On retroflexion the fundus and cardia were normal. The endoscope was then withdrawn into distal esophagus where the patient had a 2 cm sliding-type hiatal hernia with grade B linear erosive esophagitis There were some ulcers extending into the distal esophagus with some hyperemia erythema from which biopsies were obtained. The remaining proximal esophagus and oropharynx were unremarkable The patient tolerated the procedure well without difficulty. COMPLICATIONS : None SPECIMENS: Duodenal biopsies Gastric biopsies Esophageal biopsies DISPOSITION: Transfer back to the floor Stable PLAN: 1. Await for biopsy result 2. Will place pt on Protonix 40 mg bid IV 3. Carafate suspension 1 g p.o. 4 times a day 4. Full liquid diet advance as tolerated 5. MiraLax and Colace for her constipation 6. Outpatient follow up with me as needed for ongoing GI management NAHUN LEARY MD Aug 12, 2025 14:42
--- NOTE | 2025-08-12 15:00 | DVHPNRES ---
Progress Note Date Seen: Aug 12, 2025 Resident Creating Document: RONY MARTÍNEZ RESIDENT Medical Necessity Reason Pt with a Central, PICC or Fol: No Subjective Review of Systems Lise Raines is a 25-year old female who presented to the ED with the complaint of nausea and vomiting since 5 days. The patient mentions she noticed bright red blood in the vomitus the 1st 2-3 days and it became more dark, blood- tinged vomitus in the last 2 days. Patient also mentions having lower abdominal pain, rated 6/10 in intensity since then. She also reports to be having constipation over the last 5 days. She reported to have had fever recorded as 100 degrees along with chills and cold sweats 5 days back. Patient mentions having similar episodes of nausea and nonbloody tinged vomitus 6 months back, and she was diagnosed with a right ovarian cyst. Abdominal CT was done which was unremarkable. Ultrasound of the appendix was done which could not visualize the appendix but appendicitis could not be excluded. GI scheduled patient for EGD tomorrow. Past medical history: Ovarian cyst Past surgical history: Denies Social & Personal history: Lives at home with the family, denies smoking, alcohol and drugs Allergies: No known allergies Patient seen and examined at bedside. Patient is alert and oriented to time, place person and responding to all questions. Eyes: No Pain, No Vision change, No Conjunctivae inflammation, No Eyelid inflammation, No Redness ENT: No Ear pain, No Ear discharge, No Nose pain, No Nose discharge, No Nose congestion, No Mouth pain, No Mouth swelling, No Throat pain, No Throat swelling Cardiovascular: No Chest Pain, No Palpitations, No Orthopnea, No Paroxysmal No Dyspnea, No Edema, No Lt Headedness Respiratory: No Cough, No Dry, No Shortness of breath, No SOB with exertion, No Wheezing, No Hemoptysis, No Pleuritic Pain, No Sputum Gastrointestinal: Nausea, Vomiting, Abdominal Pain, No Diarrhea, No Constipation, No Melena, No Hematochezia Genitourinary: No Dysuria, No Frequency, No Incontinence, No Hematuria, No Retention 08/12/25- The patient was seen at bedside today. Patient mentions she has intense abdominal pain and nausea and multiple episodes of vomiting. She underwent EGD today which showed 2 cm sliding-type hiatal hernia with grade B erosive esophagitis and minimal gastroduodenitis otherwise normal examination up to the 2nd and 3rd part of the duodenum. He was started on Protonix 40 mg b.i.d. IV and Carafate suspension 1 g p.o. 4 times a day. Surgery was consulted who mentioned the differential diagnosis as Crohn's disease, enteritis, gastroenteritis, gastritis, erosive esophagitis, peptic ulcer disease. We will start with metronidazole. Objective vital signs Vital Sign Date Time Temp Pulse Resp B/P (MAP) Pulse Ox O2 Delivery O2 Flow Rate FiO2 08/12/25 14:24 77 14 110/66 (81) 97 08/12/25 13:57 98.6 98.6 08/12/25 13:57 Room Air 0 97 Total Intake and Output 08/11/25 08/11/25 08/12/25 15:00 23:00 07:00 Intake Total 50 ml 1400 ml 1320 ml Balance 50 ml 1400 ml 1320 ml medications Current Medications Medications Dose Ordered Sig/Karen Route Start Time Stop Time Status Last Admin Dose Admin Ondansetron HCl 4 mg Q4HP PRN IV 08/10/25 23:30 08/12/25 04:48 4 MG Acetaminophen/ Hydrocodone Bitart 1 tab Q4HP PRN PO 08/10/25 23:45 08/11/25 19:35 1 TAB Acetaminophen 650 mg Q6HP PRN PO 08/10/25 23:45 Morphine Sulfate 2 mg Q6HPRN PRN IV 08/10/25 23:45 08/12/25 04:49 2 MG Ceftriaxone Sodium 50 ml @ 100 mls/hr DAILY@09 IV 08/11/25 09:00 08/12/25 11:37 100 MLS/HR Sucralfate 1 gm BID@0600,2200 PO 08/11/25 22:00 08/11/25 21:41 1 GM Polyethylene Glycol 17 gm DAILYPRN PRN PO 08/11/25 11:45 Sennosides 8.6 mg HS PO 08/11/25 22:00 08/11/25 21:41 8.6 MG Sodium Chloride 1,000 ml @ 75 mls/hr [id number] IV 08/11/25 17:45 08/11/25 18:31 75 MLS/HR Metronidazole 100 ml @ 100 mls/hr Q8HR IV 08/12/25 14:00 Metoclopramide HCl 5 mg Q6HR IV 08/12/25 12:00 08/12/25 11:37 5 MG Morphine Sulfate 2 mg Q4H PRN IV 08/12/25 13:00 08/12/25 17:01 Morphine Sulfate 1 mg Q30M PRN IV 08/12/25 13:00 08/12/25 15:01 Sucralfate 1 gm QID@0600,1130,1700,2200 PO 08/12/25 17:00 UNV Pantoprazole Sodium 40 mg BID IV 08/12/25 22:00 UNV Examination General Appearance: Cooperative. Well developed. Well nourished. NAD Head Exam: Normal inspection Neck Exam: Normal inspection. Non-tender. Normal alignment Pulmonary/Respiratory: Chest non-tender. Clear bilateral breath sounds, no crackles, no wheezing. Cardiovascular/Chest: Regular rate and rhythm. No murmurs. No JVD. Peripheral Pulses: 2+ Radial (R). 2+ Radial (L). 2+ Pedal (R). 2+ Pedal (L) Abdominal Exam: Normal bowel sounds. Soft. normal abdomen, no visible veins, severe tenderness in all quadrants, Right>left, No hepatospenomegaly. No masses Ankle Exam: Negative ankle edema Lower extremities: Negative lower extremity edema Neuro/Mental Status: A&O x4. Coherent. Thoughts/Psych: Normal thought pattern. Appropriate mood and affect. Good judgement and insight Skin Exam: Normal inspection. Normal color. Warm. Dry laboratory and microbiology Laboratory Tests 08/12/25 04:34 Test 08/12/25 04:34 Range/Units Serum Glucose 84 74-106 mg/dL Labs and/or images reviewed: Labs reviewed by me, Image(s) reviewed by me Problem List/Assessment/Plan Problem List/Assessment/Plan Acute GI bleed with hematemesis Acute intractable nausea, vomiting and abdominal pain Possible peptic ulcer disease Possible acute appendicitis -started on full liquid diet -EGD done on 08/12/25 1. 2 cm sliding-type hiatal hernia with grade B erosive esophagitis 2. Minimal gastroduodenitis otherwise normal examination up to the 2nd and 3rd part of the duodenum -IV ceftriaxone 1 g daily -CT abdomen unremarkable -pelvic ultrasound unremarkable, endometrial stripe 11 mm -ultrasound appendix- not visualize the appendix, appendicitis can not be ruled out -surgical consult- Differential diagnosis for this patient, most likely Crohn's disease, enteritis, gastroenteritis, gastritis, erosive esophagitis, peptic ulcer disease -protonix 40mg bid iv and carafate suspension 1gm po 4 times a day -started metronidazole Constipation -MiraLax powder and Senokot Hypokalemia, replenished PUD prophylaxis: Protonix IV daily DVT prophylaxis: Ambulatory Goals of care: Full code, discussed for 23 minutes Plan discussed with patient Plan discussed with Dr Porter Plan discussed with: Patient My Orders My Orders Orders - RONY MARTÍNEZ Procedure Category Date Status Time Sodium Chloride 0.9% PHA 08/11/25 In Process 17:45 Metoclopramide PHA 08/12/25 In Process Injection (Reglan 12:00 Dietary Evaluation Review Comments: Nutrition Recommendation: 1) Advance diet as medically feasible 2) Monitor NPO status, lab values, weight trend, and I/O Expected Outcomes/Goals: GI symptoms to improve Intake to meet >75% estimated needs Fu 2-3 days Date of Service: Aug 12, 2025 Billing Provider: SHAVON PORTER MD Common Visit Codes: [id number] INP/OBS CARE(HIGH) RONY MARTÍNEZ RESIDENT Aug 12, 2025 15:00 SHAVON PORTER MD Aug 12, 2025 22:06
[2025-08-12] MEDS: SUCRALFATE 1 GM/10 ML ORAL SUSP PO SCH (17:03)
[2025-08-12 19:00] LABS: Hematocrit 38.8 % (36.0-46.0); Hemoglobin 13.4 g/dL (12.2-16.2); Mean Corpuscular Hemoglobin 29.3 pg (28.0-32.0); Mean Corpuscular Volume 84.6 fL (80.0-100.0); Nucleated Red Blood Cells % 0.0 %
[2025-08-12 19:08] LABS: Chloride 99 mmol/L (98-107); Sodium 137 mmol/L (136-145)
[2025-08-12 19:09] LABS: Anion Gap 12 (5-15); Carbon Dioxide 26 mmol/L (20-31)
[2025-08-12 19:10] LABS: Calcium 9.0 mg/dL (8.7-10.4)
[2025-08-12 19:14] LABS: BUN/Creatinine Ratio 9.2 (10.0-20.0); Glucose 89 mg/dL (74-106)
[2025-08-12 19:15] LABS: Blood Urea Nitrogen 6 mg/dL (9-23); Potassium 3.0 mmol/L (3.5-5.1)
[2025-08-12] MEDS: PANTOPRAZOLE 40 MG/10 ML VIAL INJ IV SCH (22:06)
[2025-08-13] VITALS (8 sets, daily range): BP systolic 114–138; BP diastolic 68–85; PULSE 58–80; RESP 15–20; TEMP 97.6–98.5; O2SAT 94–99
[2025-08-13] MEDS: POLYETHYLENE GLYCOL 17 GM PWDR PO SCH (08:37)
[2025-08-13] MEDS: POTASSIUM EFFERVESENT TAB 25 MEQ PO ONE (08:37)
[2025-08-13 10:28] LABS: Hematocrit 37.7 % (36.0-46.0); Hemoglobin 13.1 g/dL (12.2-16.2); Mean Corpuscular Hemoglobin 29.1 pg (28.0-32.0); Mean Corpuscular Volume 83.9 fL (80.0-100.0); Nucleated Red Blood Cells % 0.0 %
[2025-08-13 10:41] LABS: Chloride 100 mmol/L (98-107)
[2025-08-13 10:42] LABS: Anion Gap 11 (5-15); Calcium 8.7 mg/dL (8.7-10.4); Carbon Dioxide 24 mmol/L (20-31)
[2025-08-13 10:44] LABS: Potassium 3.0 mmol/L (3.5-5.1); Sodium 135 mmol/L (136-145)
[2025-08-13 10:47] LABS: Glucose 96 mg/dL (74-106)
[2025-08-13 10:51] LABS: BUN/Creatinine Ratio 8.6 (10.0-20.0); Blood Urea Nitrogen < 5 mg/dL (9-23)
--- NOTE | 2025-08-13 13:00 | DVHPN2 ---
Progress Note Date Seen: Aug 13, 2025 Resident Creating Document: JHANALILIA MARCH RESIDENT Medical Necessity Reason Pt with a Central, PICC or Fol: No Subjective Review of Systems Patient reports abdominal pain has improved slightly since she had a bowel movement earlier this morning No blood in stools noted Reports nausea and vomiting has improved since earlier this morning Tolerating clear liquid diet Objective vital signs Vital Sign Date Time Temp Pulse Resp B/P (MAP) Pulse Ox O2 Delivery O2 Flow Rate FiO2 08/13/25 09:00 98.1 69 15 114/68 (83) 98 98.1 08/13/25 07:30 Room Air* 0 21 Total Intake and Output 08/12/25 08/12/25 08/13/25 15:00 23:00 07:00 Intake Total 60 ml 970 ml 1400 ml Balance 60 ml 970 ml 1400 ml medications Current Medications Medications Dose Ordered Sig/Karen Route Start Time Stop Time Status Last Admin Dose Admin Ondansetron HCl 4 mg Q4HP PRN IV 08/10/25 23:30 08/13/25 08:40 4 MG Acetaminophen/ Hydrocodone Bitart 1 tab Q4HP PRN PO 08/10/25 23:45 08/11/25 19:35 1 TAB Acetaminophen 650 mg Q6HP PRN PO 08/10/25 23:45 Morphine Sulfate 2 mg Q6HPRN PRN IV 08/10/25 23:45 08/12/25 21:03 2 MG Ceftriaxone Sodium 50 ml @ 100 mls/hr DAILY@09 IV 08/11/25 09:00 08/13/25 08:38 100 MLS/HR Polyethylene Glycol 17 gm DAILYPRN PRN PO 08/11/25 11:45 Sennosides 8.6 mg HS PO 08/11/25 22:00 08/12/25 22:06 8.6 MG Sodium Chloride 1,000 ml @ 75 mls/hr [id number] IV 08/11/25 17:45 08/13/25 10:45 75 MLS/HR Metoclopramide HCl 5 mg Q6HR IV 08/12/25 12:00 08/13/25 10:45 5 MG Sucralfate 1 gm QID@0600,1130,1700,2200 PO 08/12/25 17:00 08/13/25 10:45 1 GM Pantoprazole Sodium 40 mg BID IV 08/12/25 22:00 08/13/25 08:38 40 MG Polyethylene Glycol 17 gm DAILY PO 08/13/25 10:00 08/13/25 08:37 17 GM Examination Gen - no pallor, no scleral icterus Skin - Patients skin is warm and dry. HEENT - normocephalic, atraumatic, dry mucous membranes. Neck - supple, no lymphadenopathy Pulmonary - B/L clear breath sounds cardiovascular - regular S1,S2 heard GI - soft abdomen with tenderness to palpation in the hypogastrium , left and the right lower quadrants. Bowel sounds normoactive. Neurological - Patient is alert and oriented x4. No motor or sensory weakness laboratory and microbiology Laboratory Tests 08/13/25 10:07 Test 08/13/25 10:07 Range/Units Serum Glucose 96 74-106 mg/dL Problem List/Assessment/Plan Problem List/Assessment/Plan Intractable nausea vomiting Hematemesis Hiatal hernia Erosive esophagitis Minimal gastroduodenitis Constipation Sirs Dehydration Plan - underwent EGD yesterday showing 2 cm sliding-type hiatal hernia with grade B erosive esophagitis, minimal gastroduodenitis - continue on protonix IV daily - Carafate 1 g p.o. b.i.d. - Reglan 5 mg q.8 hours p.r.n. for nausea - MiraLax and senna for constipation - continue on clear liquid diet and advance as tolerated Plan discussed with Dr. Leary Plan discussed with: Patient, Other (RN) Dietary Evaluation Review Comments: Nutrition Recommendation: 1) Advance diet as medically feasible 2) Monitor NPO status, lab values, weight trend, and I/O Expected Outcomes/Goals: GI symptoms to improve Intake to meet >75% estimated needs Fu 2-3 days ANALILIA MARIN RESIDENT Aug 13, 2025 13:00
--- NOTE | 2025-08-13 13:30 | DVHPNRES ---
Progress Note Date Seen: Aug 13, 2025 Resident Creating Document: JOSEP SHERIDAN RESIDENT Has the PT tested + for MRSA If YES, has PT been informed?: No Medical Necessity Reason Pt with a Central, PICC or Fol: No Subjective Review of Systems Patient seen and examined at bedside. Patient still reported mild nausea and vomiting overnight but has been able to tolerate clear liquid diet. Patient underwent EGD yesterday which showed grade B esophagitis and mild gastroduodenitis. Multiple imaging studies has been done, CT scan of the abdomen, pelvic ultrasound, MRI of the abdomen and everything is coming back unremarkable. Surgery is on board, reviewed the case and stated that appendicitis most likely is ruled out. Surgeon stated that patient might be coursing with IBS or IBD. GI is on board as well. We will switch ceftriaxone to IV zosyn. We will also start dicyclomine 10mg Q8 hrs. Patient is currently on pantoprazole 40 mg IV b.i.d., sucralfate, IV fluids, IV ceftriaxone. ROS Constitutional: Denies weight loss, fever and chills. HEENT: Denies changes in vision and hearing. Respiratory: Denies shortness of breath and cough Cardiovascular: Denies chest discomfort or palpitations GI: Reports abdominal tenderness on palpation and mild nausea w/o vomiting. : Denies dysuria and urinary frequency. Musculoskeletal: Denies myalgias and joint pain Skin: Denies rash and pruritus. Neurological: Denies dizziness, headache, vision or hearing problems Objective vital signs Vital Sign Date Time Temp Pulse Resp B/P (MAP) Pulse Ox O2 Delivery O2 Flow Rate FiO2 08/13/25 13:00 98.5 62 17 121/73 (89) 99 98.5 08/13/25 07:30 Room Air* 0 21 Total Intake and Output 08/12/25 08/12/25 08/13/25 15:00 23:00 07:00 Intake Total 60 ml 970 ml 1400 ml Balance 60 ml 970 ml 1400 ml medications Current Medications Medications Dose Ordered Sig/Karen Route Start Time Stop Time Status Last Admin Dose Admin Ondansetron HCl 4 mg Q4HP PRN IV 08/10/25 23:30 08/13/25 08:40 4 MG Acetaminophen/ Hydrocodone Bitart 1 tab Q4HP PRN PO 08/10/25 23:45 08/11/25 19:35 1 TAB Acetaminophen 650 mg Q6HP PRN PO 08/10/25 23:45 Morphine Sulfate 2 mg Q6HPRN PRN IV 08/10/25 23:45 08/12/25 21:03 2 MG Ceftriaxone Sodium 50 ml @ 100 mls/hr DAILY@09 IV 08/11/25 09:00 08/13/25 08:38 100 MLS/HR Polyethylene Glycol 17 gm DAILYPRN PRN PO 08/11/25 11:45 Sennosides 8.6 mg HS PO 08/11/25 22:00 08/12/25 22:06 8.6 MG Sodium Chloride 1,000 ml @ 75 mls/hr [id number] IV 08/11/25 17:45 08/13/25 10:45 75 MLS/HR Metoclopramide HCl 5 mg Q6HR IV 08/12/25 12:00 08/13/25 10:45 5 MG Sucralfate 1 gm QID@0600,1130,1700,2200 PO 08/12/25 17:00 08/13/25 10:45 1 GM Pantoprazole Sodium 40 mg BID IV 08/12/25 22:00 08/13/25 08:38 40 MG Polyethylene Glycol 17 gm DAILY PO 08/13/25 10:00 08/13/25 08:37 17 GM Examination Physical Examination General: Patient alert and oriented in person, place and time. Patient following commands. HEENT: Normocephalic, atraumatic, moist mucous membranes Respiratory/pulmonary: Clear lungs bilaterally, no associated crackles or wheezes. Cardiovascular: Normal heart sounds S1 and S2 with no associated murmurs Abdomen: Abdomen nondistended, there is diffuse pain on palpation in upper and lower quadrants diffusely. Extremities: There is no peripheral edema present at the lower extremities. Skin: No rashes or pruritus, there is no sacral edema present at this time. Neurological: Intact cranial nerves with no focal neurologic deficits laboratory and microbiology Laboratory Tests 08/13/25 10:07 Test 08/13/25 10:07 Range/Units Serum Glucose 96 74-106 mg/dL Problem List/Assessment/Plan Problem List/Assessment/Plan Assessment/Plan Acute GI bleed with hematemesis Acute intractable nausea, vomiting and abdominal pain Possible reaction to sierra IUD? Possible Inflammatory bowel syndrome R/O IBD Ruled out Peptic ulcer disease Ruled out Acute appendicitis -Continue full liquid diet and progress as tolerated -EGD done on 08/12/25 showed 1. 2 cm sliding-type hiatal hernia with grade B erosive esophagitis and Minimal gastroduodenitis otherwise normal examination up to the 2nd and 3rd part of the duodenum -CT abdomen/pelvis unremarkable -pelvic ultrasound unremarkable, endometrial stripe 11 mm -ultrasound appendix- not visualize the appendix, appendicitis can not be ruled out MRI of the abdomen, Unremarkable -DC ceftriaxone -Start IV zosyn -Start Dicyclomine 10mg Q8 hrs -Patient needs f/u with obgyn as outpatient for poss IUD removal as poss cause of the pain -surgical consult- Differential diagnosis for this patient, most likely Crohn's disease, enteritis, gastroenteritis, gastritis, erosive esophagitis, peptic ulcer disease -protonix 40mg bid iv and carafate suspension 1gm po 4 times a day -continue metronidazole Acute Constipation -MiraLax powder and Senokot Hypokalemia, replenished -Monitor Goals of care discussed with patient at bedside, FULL CODE Plan discussed with Dr. Felix Plan discussed with: Patient Dietary Evaluation Review Comments: Nutrition Recommendation: 1) Advance diet as medically feasible 2) Monitor NPO status, lab values, weight trend, and I/O Expected Outcomes/Goals: GI symptoms to improve Intake to meet >75% estimated needs Fu 2-3 days Date of Service: Aug 13, 2025 Billing Provider: SHAVON FELIX MD Common Visit Codes: [id number] INP/OBS CARE(HIGH) JOSEP SHERIDAN RESIDENT Aug 13, 2025 13:30 SHAVON FELIX MD Aug 13, 2025 23:11
[2025-08-13 16:37] LABS: Amphetamine Screen, Urine Neg (NEGATIVE); Benzodiazephine Screen, Urine Neg (NEGATIVE); Opiate Scree,Urine Neg (NEGATIVE)
[2025-08-13 16:38] LABS: Barbiturate Scree,Urine Neg (NEGATIVE); Cannabinoid Screen, Urine Pos (NEGATIVE); Cocaine Screen, Urine Neg (NEGATIVE); Phencyclidine Screen, Urine Neg (NEGATIVE)
[2025-08-13] MEDS: DICYCLOMINE HCL 10 MG CAP PO SCH (21:35)
[2025-08-13] MEDS: PIPERACILLIN-TAZOB 3.375GM 100 ML IV SCH (21:38)
[2025-08-14 00:45] VITALS: BP 108/69; PULSE 68; RESP 16; TEMP 98.3; O2SAT 97
[2025-08-14 05:03] VITALS: BP 112/69; PULSE 70; RESP 17; TEMP 97.8; O2SAT 99
[2025-08-14 06:04] LABS: Anion Gap 11 (5-15); Carbon Dioxide 26 mmol/L (20-31); Chloride 102 mmol/L (98-107); Sodium 139 mmol/L (136-145)
[2025-08-14 06:05] LABS: Hematocrit 37.1 % (36.0-46.0); Hemoglobin 13.1 g/dL (12.2-16.2); Mean Corpuscular Hemoglobin 29.5 pg (28.0-32.0); Mean Corpuscular Volume 83.6 fL (80.0-100.0); Nucleated Red Blood Cells % 0.0 %
[2025-08-14 06:10] LABS: BUN/Creatinine Ratio 9.5 (10.0-20.0); Glucose 83 mg/dL (74-106)
[2025-08-14 06:12] LABS: Blood Urea Nitrogen 6 mg/dL (9-23); Calcium 8.6 mg/dL (8.7-10.4); Potassium 3.1 mmol/L (3.5-5.1)
[2025-08-14 07:30] VITALS: PULSE 70; RESP 17; O2SAT 99
[2025-08-14] MEDS: POTASSIUM EFFERVESENT TAB 25 MEQ PO ONE (08:57)
[2025-08-14 09:00] VITALS: BP 116/59; PULSE 69; RESP 15; TEMP 97.8; O2SAT 97
[2025-08-14] MEDS ORDERED: SUCR1SUS5 PO (10:46)
[2025-08-14] MEDS ORDERED: AUG875T PO (10:46)
[2025-08-14] MEDS ORDERED: PANT40TA2 PO (10:46)
[2025-08-14] MEDS ORDERED: DICY10CA PO (10:50)
--- NOTE | 2025-08-14 11:17 | DVHDSRES ---
Discharge Summary Date of Admission Resident Creating Document: RONY MARTÍNEZ RESIDENT Aug 10, 2025 at 23:21 Date of Discharge: Aug 14, 2025 Admitting Diagnosis GI bleed Labs/Diagnostic Data: Laboratory Results Test 08/14/25 05:09 08/13/25 15:47 08/12/25 04:34 08/11/25 01:25 White Blood Count 11.3 10^3/uL (4.4-10.8) Red Blood Count 4.44 10^6/uL (4.0-5.20) Hemoglobin 13.1 g/dL (12.2-16.2) Hematocrit 37.1 % (36.0-46.0) Mean Corpuscular Volume 83.6 fL (80.0-100.0) Mean Corpuscular Hemoglobin 29.5 pg (28.0-32.0) Mean Corpuscular Hemoglobin Concent 35.3 g/dL (32.0-36.0) Red Cell Distribution Width 13.3 % (11.8-14.3) Platelet Count 300 10^3/uL (140-450) Mean Platelet Volume 8.5 fL (6.9-10.8) Neutrophils (%) (Auto) 60.7 % (37.0-80.0) Lymphocytes (%) (Auto) 29.8 % (10.0-50.0) Monocytes (%) (Auto) 8.6 % (0.0-12.0) Eosinophils (%) (Auto) 0.5 % (0.0-7.0) Basophils (%) (Auto) 0.4 % (0.0-2.0) Neutrophils # (Auto) 6.9 10 ^3/uL (1.6-8.6) Lymphocytes # (Auto) 3.4 10 ^3/uL (0.4-5.4) Monocytes # (Auto) 1.0 10 ^3/uL (0-1.3) Eosinophils # (Auto) 0.1 10 ^3/uL (0-0.8) Basophils # (Auto) 0.1 10 ^3/uL (0-0.2) Nucleated Red Blood Cells 0.0 % Sodium Level 139 mmol/L (136-145) Potassium Level 3.1 mmol/L (3.5-5.1) Chloride Level 102 mmol/L (98-107) Carbon Dioxide Level 26 mmol/L (20-31) Anion Gap 11 (5-15) Blood Urea Nitrogen 6 mg/dL (9-23) Creatinine 0.63 mg/dL (0.550-1.02) Glomerular Filtration Rate Calc 127 mL/min (>90) BUN/Creatinine Ratio 9.5 (10.0-20.0) Serum Glucose 83 mg/dL (74-106) Calcium Level 8.6 mg/dL (8.7-10.4) Magnesium Level 2.1 mg/dL (1.6-2.6) Urine Opiates Screen Neg (NEGATIVE) Urine Fentanyl Screen Neg (NEGATIVE) Urine Barbiturates Screen Neg (NEGATIVE) Urine Phencyclidine Screen Neg (NEGATIVE) Urine Amphetamines Screen Neg (NEGATIVE) Urine Benzodiazepines Screen Neg (NEGATIVE) Urine Cocaine Screen Neg (NEGATIVE) Urine Cannabinoids Screen Pos (NEGATIVE) Erythrocyte Sedimentation Rate 12 mm/hr (0-20) C-Reactive Protein High Sensitivity 0.57 mg/dL (<1.0) Prothrombin Time 11.4 sec (9.3-11.8) Prothrombin Time INR 1.08 (0.9-1.15) Activated Partial Thromboplast Time 29.3 SEC (24.5-34.5) Test 08/10/25 20:15 08/10/25 20:05 Urine Color Yellow (Yellow) Urine Clarity Clear (Clear) Urine pH 6.5 (5.0-9.0) Urine Specific [place] 1.037 (1.001-1.035) Urine Protein 2+ (Negative) Urine Ketones 4+ (Negative) Urine Blood Negative /uL (Negative) Urine Nitrite Negative (Negative) Urine Bilirubin Negative (Negative) Urine Urobilinogen Normal mg/dL (Negative) Urine Leukocyte Esterase Negative /uL (Negative) Urine RBC 4 /hpf (0 - 4) Urine Microscopic WBC < 1 /HPF (0-5) Urine Squamous Epithelial Cells Mod /hpf (<5) Urine Bacteria Few /hpf (None Seen) Urine Hyaline Casts Few /lpf (0 - 2) Urine Mucus Few (None Seen) Urine Glucose Normal mg/dL (Normal) Urine Test Negative (Negative) Lactic Acid Level 1.6 mmol/L (0.4-2.0) Total Bilirubin 1.0 mg/dL (0.2-1.0) Aspartate Amino Transferase (AST) 14 U/L (13-40) Alanine Aminotransferase (ALT) 36 U/L (7-40) Alkaline Phosphatase 89 U/L (46-116) Total Protein 8.7 g/dL (5.7-8.2) Albumin 5.4 g/dL (3.2-4.8) Lipase 40 U/L (12-53) Other Laboratory Tests 08/14/25 05:09 Brief Hx & Hospital Course: Lise Ranies is a 25-year old female who presented to the ED with the complaint of nausea and vomiting since 5 days. The patient mentioned she noticed bright red blood in the vomitus the 1st 2-3 days and it became more dark, blood-tinged vomitus in the last 2 days along with lower abdominal pain, rated 6/10 in intensity since then. She also reported to be having constipation over the last 5 days and fever recorded as 100 degrees along with chills and cold sweats 5 days back. Patient mentioned having similar episodes of nausea and nonblood tinged vomitus 6 months back, and she was diagnosed with a right ovarian cyst. In the hospital, patient complained of intense abdominal pain ,nausea and vomiting. Multiple imaging studies including, CT scan of the abdomen, pelvic ultrasound, MRI of the abdomen were done, all of which came back unremarkable. EGD was done on 08/12/2025 which showed 2 cm sliding-type hiatal hernia with grade B erosive esophagitis and minimal gastroduodenitis otherwise normal examination up to the 2nd and 3rd part of the duodenum. She was started on Protonix 40 mg b.i.d. IV and Carafate suspension 1 g p.o. 4 times a day.Surgery was consulted who mentioned the differential diagnosis as Crohn's disease, enteritis, gastroenteritis, gastritis, erosive esophagitis, peptic ulcer disease. She was switched from IV ceftriaxone to IV Zosyn on 08/13/2025. On evaluation today, patient no longer complains of abdominal pain, nausea and vomiting has had 2-3 bowel movements since yesterday. Patient is tolerating full liquid diet. She is being discharged home today in a stable condition on Augmentin, Protonix, sucralfate and dicyclomine. All medications and recommendations were thoroughly explained to the patient and she demonstrated understanding of the same. The patient was asked to follow up with PCP and with OBGYN for possible removal of the IUD. Past medical history: Ovarian cyst Past surgical history: Denies Social & Personal history: Lives at home with the family, denies smoking, alcohol and drugs Allergies: No known allergies General Appearance: Cooperative. Well developed. Well nourished. NAD Head Exam: Normal inspection Neck Exam: Normal inspection. Non-tender. Normal alignment Pulmonary/Respiratory: Chest non-tender. Clear bilateral breath sounds, no crackles, no wheezing. Cardiovascular/Chest: Regular rate and rhythm. No murmurs. No JVD. Peripheral Pulses: 2+ Radial (R). 2+ Radial (L). 2+ Pedal (R). 2+ Pedal (L) Abdominal Exam: Normal bowel sounds. Soft. normal abdomen, no visible veins, no tenderness, No hepatospenomegaly. No masses Ankle Exam: Negative ankle edema Lower extremities: Negative lower extremity edema Neuro/Mental Status: A&O x4. Coherent. Thoughts/Psych: Normal thought pattern. Appropriate mood and affect. Good judgement and insight Skin Exam: Normal inspection. Normal color. Warm. Dry Operations or Procedures 1.PROCEDURE(s): ABPLIV - CT AB PEL WITH IV CON ONLY REASON: Severe abdominal pain, nausea, vomiting, hematemesis ORDER NUMBER(s): [id number], ACCESSION NUMBER(s): [id number] Exam: CT CT AB PEL WITH IV CON ONLY History: Severe abdominal pain, nausea, vomiting, hematemesis Comparison Study: CT CT AB PEL WITH IV CON ONLY on DOS: 11/27/24 Technique: Multidetector spiral CT of the abdomen was performed from lung bases to pubic symphysis. Imaging was performed with IV contrast. Axial, coronal and sagittal multiplanar reformats were obtained from the axial data set by the technologist. Radiation Dose : 1. Abdomen/Pelvis: CTDIvol 10.29 mGy, DLP 586.02 mGy*cm. Findings: Lower Chest: No acute findings. Liver: Diffuse hypoenhancement relative to the spleen. Gallbladder and Biliary Tree: Unremarkable Pancreas: Normal. Spleen: Normal. Adrenal Glands: Normal. Kidneys/Ureters: Normal. Bladder: Grossly unremarkable for degree of distention. Pelvic Organs: Unremarkable. Expected IUD positioning. Bowel: Normal caliber without wall thickening. Normal appendix. Vasculature: Unremarkable. Lymphadenopathy: No obvious adenopathy. Peritoneum: Physiologic volume of pelvic ascites. No free air or fluid collection. Abdominal Wall: No significant hernia. Musculoskeletal: No acute findings. IMPRESSION: No acute abdominopelvic abnormality. Radiation optimization: All CT scans at this facility use at least one of these dose optimization techniques: automated exposure control mA and/or kV adjustment per patient size (includes targeted exams where dose is matched to clinical indication) or iterative reconstruction. 2.PROCEDURE(s): PELUS - PELVIC REASON: r/o ovarian torsion and iud placement ORDER NUMBER(s): [id number], ACCESSION NUMBER(s): [id number] Technique: Real-time ultrasound images through the pelvis using a transabdominal transducer. Indication: r/o ovarian torsion and iud placement Comparison: US PELVIC on DOS: 11/29/24 Findings: The uterus measures 7. cm. The endometrial stripe measures 11 mm. There are no focal masses. There is no abnormal flow in the endometrium. Intrauterine device extending to the fundal region. Right ovary measures 3.5 x 2.4 x 2.1 cm. Normal flow on color doppler images. No focal masses are identified. Left ovary measures 4.1 x 2 x 2.1 cm. Normal flow on color doppler images. No focal masses are identified. There is no significant free fluid in the pelvis. Impression: Endometrial thickness 11 mm. Intrauterine device extending to the fundal region. 3.PROCEDURE(s): RTLQD - RIGHT LOWER QUAD REASON: appendicitis? ORDER NUMBER(s): [id number], ACCESSION NUMBER(s): [id number] INDICATION: appendicitis TECHNIQUE: Graded compression technique along with Multiple real-time sonographic images were obtained for evaluation of the right lower quadrant. FINDINGS: The appendix was not visualized. No free fluid or lymph nodes are seen on this exam. IMPRESSION: 1.Nonvisualization of the appendix, thus cannot exclude appendicitis. 4.PROCEDURE(s): MRABWWO - MRI ABDOMEN W AND WO REASON: ORDER NUMBER(s): [id number], ACCESSION NUMBER(s): [id number] PROCEDURE: MRI MRI ABDOMEN W AND WO Indication: r/o abscess, acute intrabdominal pathology COMPARISON: 08/10/2025 TECHNIQUE: Multiplanar multisequence images of abdomen are obtained with and without contrast. FINDINGS: Kidneys demonstrate no hydronephrosis. Adrenal glands unremarkable. Spleen unremarkable. No evidence for cholelithiasis. Pancreas unremarkable. Liver unremarkable. Stomach partially distended. The imaged small bowel loops are normal in caliber. No rim enhancing fluid collection seen. IMPRESSION: No MRI evidence for acute abnormality of the abdomen. 5.DATE OF OPERATION: 08/12/25 PROCEDURE: Upper Endoscopy with biopsy. PREOPERATIVE INDICATION: The patient is a 25 -year-old female undergoing endoscopy for recurrent nausea vomiting and abdominal pain POSTOPERATIVE DIAGNOSES: 1. 2 cm sliding-type hiatal hernia with grade B erosive esophagitis 2. Minimal gastroduodenitis otherwise normal examination up to the 2nd and 3rd part of the duodenum PROCEDURE PERFORMED BY: Carmenza Leary GI NURSE: Jovana SCOPE: Olympus videoendoscope. ASA CLASS: 2 PREOPERATIVE MEDICATIONS: Mac sedation, Dr. Barker PROCEDURE IN DETAIL: After obtaining an informed consent, the patient was placed on left lateral decubitus position. The patient was then sedated with the above medications. A bite block was placed between her teeth. The endoscope was then passed through the oropharynx, into the esophagus, and through the stomach and pylorus up to the second and third part of the duodenum. The endoscope was then withdrawn. The 2nd and 3rd part of the duodenum were normal and duodenal bulb showed minimal duodenitis. Duodenal biopsies were obtained The pre-pyloric area antrum showed minimal gastritis. Gastric biopsies were obtained. On retroflexion the fundus and cardia were normal. The endoscope was then withdrawn into distal esophagus where the patient had a 2 cm sliding-type hiatal hernia with grade B linear erosive esophagitis There were some ulcers extending into the distal esophagus with some hyperemia erythema from which biopsies were obtained. The remaining proximal esophagus and oropharynx were unremarkable The patient tolerated the procedure well without difficulty. COMPLICATIONS : None SPECIMENS: Duodenal biopsies Gastric biopsies Esophageal biopsies DISPOSITION: Transfer back to the floor Stable PLAN: 1. Await for biopsy result 2. Will place pt on Protonix 40 mg bid IV 3. Carafate suspension 1 g p.o. 4 times a day 4. Full liquid diet advance as tolerated 5. MiraLax and Colace for her constipation 6. Outpatient follow up with me as needed for ongoing GI management Condition at Discharge: Fair Final Diagnosis/Problems List Acute GI bleed with hematemesis SIRS Acute intractable nausea, vomiting and abdominal pain Possible reaction to copper IUD Possible Inflammatory bowel syndrome Possible IBD Ruled out Peptic ulcer disease Ruled out Acute appendicitis Acute Constipation, now resolved Hypokalemia, replenished Discharge Disposition: Home Discharge Instruct/Medications Diet: Regular Activity: No Restrictions, As Tolerated Follow Up/Referral: Follow up with PCP in 1-2 weeks Follow up with OBGYN for possible reaction to copper IUD Medications: augmentin 875mg po bid for 7 days Protonix 40mg po daily for 30 days Sucralfate 1gm po bid for 30 days dicyclomine 10mg q8 hrs for 3 days Scheduled Amoxicillin & Pot Clavulanate (Augmentin Tablet), 875 MG PO BID Dicyclomine Hcl (Bentyl Capsule), 1 CAP PO TID Pantoprazole Sodium Sesquihydr (Protonix), 40 MG PO DAILY Sucralfate (Carafate), 1 GM PO BID Discontinued Medications Acetaminophen (Tylenol Extra Strength), 500 MG PO DAILY, (Reported) Ibuprofen Micronized (Motrin Tablet), 600 MG PO TID PRN Pantoprazole Sodium Sesquihydr (Pantoprazole Sodium), 1 TAB PO DAILY, (Reported) Discharge Statement: "Patient was advised to return to the ER or call 911 if any headaches, dizziness, shortness of breath, chest pain, abdominal pain, bleeding, fevers, or worsening of medical condition. Patient was counseled about treatment plan, medications, possible side effects, patientverbalized understanding. All questions were answered to the best of my ability. This discharge took greater then 30 minutes in planning, reviewing documentation, counseling the patient, and discussing with other team members." ASSESSMENT ASSESSMENT Assessment Acute GI bleed with hematemesis Acute intractable nausea, vomiting and abdominal pain Possible reaction to copper IUD Possible Inflammatory bowel syndrome Possible IBD Ruled out Peptic ulcer disease Ruled out Acute appendicitis Acute Constipation, now resolved Hypokalemia, replenished Date of Service: Aug 14, 2025 Billing Provider: SHAVON PORTER MD Common Visit Codes: 47361-NND/OBS DISCH DAY >30min RONY MARTÍNEZ RESIDENT Aug 14, 2025 11:17 SHAVON PORTER MD Aug 14, 2025 22:32
[2025-08-14 11:56] VITALS: TEMP 36.6
[2025-08-14 12:34] VITALS: BP 107/69; PULSE 68; RESP 17; TEMP 97.7; O2SAT 97
== END 2025-08-14 14:50 | disposition home or self-care (01) | DRG 381 ==
LOC: ER 19:43 → OVERFLOW 23:21 → EAST 23:56
PROVIDERS: ADMIT Internal Medicine; ATTEND Internal Medicine
PROC: 0DB68ZX Excision of Stomach, Via Natural or Artificial Opening Endoscopic, Diagnostic (ICD-10-PCS; 2025-08-12)
PROC: 0DB58ZX Excision of Esophagus, Via Natural or Artificial Opening Endoscopic, Diagnostic (ICD-10-PCS; 2025-08-12)
PROC: 0DB98ZX Excision of Duodenum, Via Natural or Artificial Opening Endoscopic, Diagnostic (ICD-10-PCS; principal; 2025-08-12 13:41)
DX: K22.11 Ulcer of esophagus with bleeding (principal); R65.10 Systemic inflammatory response syndrome (SIRS) of non-infectious origin without acute organ dysfunction; K44.9 Diaphragmatic hernia without obstruction or gangrene; K29.91 Gastroduodenitis, unspecified, with bleeding; E87.6 Hypokalemia; K58.9 Irritable bowel syndrome, unspecified; K59.00 Constipation, unspecified; E86.0 Dehydration; Z82.49 Family history of ischemic heart disease and other diseases of the circulatory system
CPT/HCPCS: 36415; 74177; 74183; 76705; 76856; 80048; 80053; 80307; 81001; 81025; 83605; 83690; 83735; 85025; 85610; 85652; 85730; 86141; 86850; 86900; 86901; 96361; 96374; 96375; G0378; J2250; J2405; J2470; J2543; J2704; J3480; J3490

== ENCOUNTER 2025-10-09 10:33 | Emergency (ER) | payer SELFPAY ==
[~2025-10-09] VITALS: Ht 157.5 cm; Wt 68.9 kg
[~2025-10-09 10:33] MED LIST changes: +AUG875T PO; +DICY10CA PO; -DOXY-111 PO; -IBU600T PO; -LEVO500T91 PO; -METR-344 PO; -PANT40T PO; +PANT40TA2 PO; +SUCR1SUS5 PO
[2025-10-09 10:36] VITALS: BP 137/76; PULSE 107; RESP 14; TEMP 98.3; O2SAT 98
--- NOTE | 2025-10-09 10:58 | ED.PDOC ---
GI ASSESSMENT HPI Comments 25 y/o F, presents to the ED for CC of nausea/vomiting. Patient states, she has been experiencing symptoms of nausea/vomiting with associated poor appetite x3days. Patient reports, to have experienced similar symptoms in the past. Patient denies diarrhea, melena, fever, or chills. No other symptoms or modifying factors are present at this time. Chief Complaint: Nausea/Vomiting Time Seen by MD: 10:50 Primary Care Provider: NONE Reviewed Notes: Nurses Notes, Medications, Allergies Allergies: Coded Allergies: NO KNOWN ALLERGIES (Unverified , 11/26/24) Home Meds Active Scripts Cephalexin (KEFLEX CAPSULE) 250 Mg Cp, 250 MG PO QID for 10 Days, #40 BOTTLE Prov:DUY GOFF MD 10/09/25 Dicyclomine Hcl (BENTYL CAPSULE) 10 Mg Cp, 1 CAP PO TID for 3 Days, #9 CAP 00 Refills Prov:KULWINDER UMANA 08/14/25 Sucralfate (Carafate) 1 Gm/10 Ml Erin, 1 GM PO BID for 30 Days, #60 GM Prov:ENE UMANAHIRA 08/14/25 Pantoprazole Sodium Sesquihydr (Protonix) 40 Mg Tab, 40 MG PO DAILY for 30 Days, #30 TAB [facility] 08/14/25 Amoxicillin & Pot Clavulanate (AUGMENTIN TABLET) 875 Mg Tb, 875 MG PO BID for 7 Days, #14 TAB Prov[facility] 08/14/25 Information Source: Patient Mode of Arrival: Ambulatory Timing: Days Duration: Since onset Prehospital treatment: None Quality: None Vomitus: Watery Stool: Normal Severity: Moderate Recent: None Recent Hx of: None Pain Location: None Modifying Factors: Nothing Associated sign and symptoms: Nausea, Vomiting Past Medical History PAST MEDICAL HISTORY: Denies Surgical History: 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 Family History Family History: Reviewed,noncontributory to illness Social History Smoker: Non-Smoker Alcohol: Denies ETOH Use Drugs: Denies Drug Use Lives In: Home Constitutional: denies: chills, diaphoresis, fatigue, fever, malaise, sweats, weakness, others EENTM: denies: blurred vision, double vision, ear bleeding, ear discharge, ear drainage, ear pain, ear ringing, eye pain, eye redness, hearing loss, mouth pain, mouth swelling, nasal discharge, nose bleeding, nose congestion, nose pain, photophobia, tearing, throat pain, throat swelling, voice changes, others Respiratory: denies: cough, hemoptysis, orthopnea, SOB at rest, shortness of breath, SOB with excertion, stridor, wheezing, others Cardiovascular: denies: chest pain, dizzy spells, diaphoresis, Dyspnea on exertion, edema, irregular heart beat, left arm pain, lightheadedness, palpitations, PND, syncope, others Gastrointestinal: reports: nausea, poor appetite, vomiting; denies: abdomen distended, abdominal pain, blood streaked bowels, constipated, diarrhea, dysphagia, difficulty swallowing, hematemesis, melena, poor fluid intake, rectal bleeding, rectal pain, others Genitourinary: denies: abnormal vagina bleeding, burning, dyspareunia, dysuria, flank pain, frequency, hematuria, incontinence, pain, , vagina discharge, urgency, others Neurological: denies: dizziness, fainting, headache, left sided numbness, left sided weakness, numbness, paresthesia, pre-existing deficit, right sided numbne ss, right sided weakness, seizure, speech problems, tingling, tremors, weakness, others Musculoskeletal: denies: back pain, gout, joint pain, joint swelling, muscle pain, muscle stiffness, neck pain, others Integumetry: denies: bruises, change in color, change in hair/nails, dryness, laceration, lesions, lumps, rash, wounds, others Allergic/Immunocompromised: denies: Difficulty Healing, Frequent Infections, Hives, Itching, others Hematologic/Lymphatic: denies: anemia, blood clots, easy bleeding, easy bruising, swollen glands, others Endocrine: denies: excessive hunger, excessive sweating, excessive thirst, excessive urination, flushing, intolerance to cold, intolerance to heat, unexplained weight gain, unexplained weight loss, others Psychiatric: denies: anxiety, bipolar disorder, depression, hopeless, panic disorder, schizophrenia, sleepless, suicidal, others All Other Systems: Reviewed and Negative Physical Exam General Appearance: Moderate Distress HEENT: Normal ENT Inspection, Pharynx Normal, TMs Normal Neck: Full Range of Motion, Non-Tender, Normal, Normal Inspection Respiratory: Chest Non-Tender, Lungs Clear, No Accessory Muscle Use, No Respiratory Distress, Normal Breath Sounds Cardiovascular: No Edema, No JVD, No Murmur, No Gallop, Normal Peripheral Pulses, Regular Rate/Rhythm Breast Exam: Deferred Gastrointestinal: No Organomegaly, Non Tender, No Pulsatile Mass, Normal Bowel Sounds, Soft Genitalia: Deferred Pelvic: Deferred Rectal: Deferred Extremities: No calf tenderness, Normal capillary refill, Normal inspection, Normal range of motion, Non-tender, No pedal edema Musculoskeletal : Apperance: Normal Neurologic: Alert, correctional facility nurse II-XII nml as Tested, No Motor Deficits, Normal Affect, Normal Mood, No Sensory Deficits Cerebellar Function: Normal Reflexes: Normal Skin: Dry, Normal Color, Warm Peripheral Pulses: 3+ Radial (R), 3+ Radial (L) Lymphatic: No Adenopathy Was a procedure done? Was a procedure done?: No GI differential Dx Differential Diagnosis: Constipation, Diverticular disease, Esophagitis, Gastritis/PUD, Gastroenteritis, Inflammatory BD, Electrolyte Imbalance, , Viral X-Ray, Labs, Meds, VS Vital Signs Date Time Temp Pulse Resp B/P (MAP) Pulse Ox O2 Delivery O2 Flow Rate FiO2 10/09/25 10:36 98.3 107 14 137/76 98 98.3 Lab Test 10/09/25 11:37 10/09/25 10:57 Range/Units Urine Color Yellow Yellow Urine Clarity Hazy H Clear Urine pH 6.5 5.0-9.0 Urine Specific [place] 1.028 1.001-1.035 Urine Protein 1+ H Negative Urine Ketones 4+ H Negative Urine Blood Negative Negative /uL Urine Nitrite Negative Negative Urine Bilirubin Negative Negative Urine Urobilinogen Normal Negative mg/dL Urine Leukocyte Esterase 3+ Negative /uL Urine RBC 10 0 - 4 /hpf Urine Microscopic WBC 10 H 0-5 /HPF Urine Squamous Epithelial Cells Many <5 /hpf Urine Bacteria Mod H None Seen /hpf Urine Mucus Few None Seen Urine Glucose Normal Normal mg/dL Urine Test Positive Negative White Blood Count 9.3 4.4-10.8 10^3/uL Red Blood Count 4.63 4.0-5.20 10^6/uL Hemoglobin 13.7 12.2-16.2 g/dL Hematocrit 39.5 36.0-46.0 % Mean Corpuscular Volume 85.2 80.0-100.0 fL Mean Corpuscular Hemoglobin 29.6 28.0-32.0 pg Mean Corpuscular Hemoglobin Concent 34.8 32.0-36.0 g/dL Red Cell Distribution Width 13.2 11.8-14.3 % Platelet Count 322 140-450 10^3/uL Mean Platelet Volume 8.1 6.9-10.8 fL Neutrophils (%) (Auto) 70.5 37.0-80.0 % Lymphocytes (%) (Auto) 22.8 10.0-50.0 % Monocytes (%) (Auto) 5.4 0.0-12.0 % Eosinophils (%) (Auto) 0.8 0.0-7.0 % Basophils (%) (Auto) 0.5 0.0-2.0 % Neutrophils # (Auto) 6.5 1.6-8.6 10 ^3/uL Lymphocytes # (Auto) 2.1 0.4-5.4 10 ^3/uL Monocytes # (Auto) 0.5 0-1.3 10 ^3/uL Eosinophils # (Auto) 0.1 0-0.8 10 ^3/uL Basophils # (Auto) 0 0-0.2 10 ^3/uL Nucleated Red Blood Cells 0.0 % Sodium Level 137 136-145 mmol/L Potassium Level 3.6 3.5-5.1 mmol/L Chloride Level 104 98-107 mmol/L Carbon Dioxide Level 21 20-31 mmol/L Anion Gap 12 5-15 Blood Urea Nitrogen < 5 L 9-23 mg/dL Creatinine 0.52 L 0.550-1.02 mg/dL Glomerular Filtration Rate Calc 133 >90 mL/min BUN/Creatinine Ratio 9.6 L 10.0-20.0 Serum Glucose 85 74-106 mg/dL Calcium Level 9.6 8.7-10.4 mg/dL Current Medications Medications (Trade) Dose Ordered Sig/Karen Route Start Time Stop Time Status Last Admin Ondansetron HCl (Zofran Po) 4 mg ONCE ONCE PO 10/09/25 11:30 10/09/25 11:31 DC 10/09/25 12:25 Patient alert. Came in because of nausea vomiting. Vitals stable. Answering questions. Reviewed her previous visit. Possible . No bleeding pain No abdominal cramping. No sign of any ectopic. No leg swelling. No need to do further testing. UA shows UTI. Was given prescription of Keflex antibiotic. Explained to the patient. Was told to follow up with her OBGYN. Was told to follow up with her primary care physician. Was told to come back if there is any problem. Time of 1ST Reevaluation: 11:20 Reevaluation 1ST: Improved Patient Education/Counseling: Diagnosis, Treatment Family Education/Counseling: No Family Present SEPSIS Sepsis Screen Date sepsis recognized/suspect: Oct 09, 2025 Time Sepsis recognized/suspect: 1035 Recent Procedure: No On Antibiotic Therapy: No Respiratory Rate >20: No Heart Rate >90: Yes Temp<36 C (96.8 F) or >38.3 C: No SBP <90 or MAP <65 mmHG: No New Acute Mental Status Change: No Is the patient on CPAP, BIPAP,: No Vital Signs Date Time Temp Pulse Resp B/P (MAP) Pulse Ox O2 Delivery O2 Flow Rate FiO2 10/09/25 10:36 98.3 107 14 137/76 98 98.3 Laboratory Tests Test 10/09/25 10:57 White Blood Count 9.3 10^3/uL (4.4-10.8) Medications Medications Dose Ordered Sig/Karen Route Start Time Stop Time Status Last Admin Dose Admin Ondansetron HCl 4 mg ONCE ONCE PO 10/09/25 11:30 10/09/25 11:31 DC 10/09/25 12:25 Departure 1 Departure Time of Disposition: 11:25 Impression: Primary Impression: Normal Qualified Codes: Z34.90 - Encounter for supervision of normal , unspecified, unspecified trimester Additional Impression: Urinary tract infection Qualified Codes: N30.00 - Acute cystitis without hematuria Disposition: 01 HOME / SELF CARE / HOMELESS Condition: Good e-Prescriptions Cephalexin (KEFLEX CAPSULE) 250 Mg Cp 250 MG PO QID for 10 Days, #40 BOTTLE Prov: DUY GOFF MD 10/09/25 Discharged With: Self Critical Care Note Critical Care Time?: No Stability Stability form required: No Heart Score Heart Score: Heart Score Response (Comments) Value History N/A 0 EKG N/A 0 Age N/A 0 Risk Factors N/A 0 Troponin N/A 0 Total 0 I personally scribed for DUY GOFF MD ([email or web address]) on 10/09/25 at 10:58. Electronically submitted by Mela Constantino ([email or web address]). DUY GOFF MD Oct 09, 2025 10:58
[2025-10-09 11:20] LABS: Hematocrit 39.5 % (36.0-46.0); Hemoglobin 13.7 g/dL (12.2-16.2); Mean Corpuscular Hemoglobin 29.6 pg (28.0-32.0); Mean Corpuscular Volume 85.2 fL (80.0-100.0); Nucleated Red Blood Cells % 0.0 %
[2025-10-09 11:24] LABS: Chloride 104 mmol/L (98-107); Potassium 3.6 mmol/L (3.5-5.1); Sodium 137 mmol/L (136-145)
[2025-10-09 11:26] LABS: Calcium 9.6 mg/dL (8.7-10.4)
[2025-10-09 11:30] LABS: Glucose 85 mg/dL (74-106)
[2025-10-09] MEDS: LORazepam 0.5 MG TAB PO ONE (11:30)
[2025-10-09 11:36] LABS: BUN/Creatinine Ratio 9.6 (10.0-20.0); Blood Urea Nitrogen < 5 mg/dL (9-23)
[2025-10-09 11:49] LABS: Urine Protein, UAD 1+ (Negative)
[2025-10-09 12:11] LABS: Anion Gap 12 (5-15); Carbon Dioxide 21 mmol/L (20-31)
[2025-10-09] MEDS: ONDANSETRON ODT 4 MG TAB PO ONE (12:25)
[2025-10-09] MEDS ORDERED: CEPH250C PO (12:31)
== END 2025-10-09 14:03 | disposition home or self-care (01) ==
LOC: ER 10:33
DX: Z34.90 Encounter for supervision of normal pregnancy, unspecified, unspecified trimester (principal); N39.0 Urinary tract infection, site not specified; Z3A.00 Weeks of gestation of pregnancy not specified; Z79.899 Other long term (current) drug therapy
CPT/HCPCS: 36415; 80048; 81001; 81025; 85025